=== PATIENT | male | born 1945 | race Caucasian/White ===

== ENCOUNTER 2019-11-29 15:16 | Inpatient (IN) | payer MEDICARE, SELFPAY ==
[2019-11-29] VITALS (11 sets, daily range): BP systolic 143–154; BP diastolic 91–104; PULSE 85–112; RESP 15–19; TEMP 36.6–37.2; O2SAT 90–97; BMI 29.1; BMI 26.6; BMI 26.7
--- NOTE | 2019-11-29 15:54 | VDLE_ITS ---
Reason For Study: Swelling RIGHT LEFT CFV is compressible, spontaneous, competent GSV is normal. and demonstrates pulsatile venous flow. CFV is compressible, spontaneous, competent, Procedure and demonstrates pulsatile venous flow. Exam performed in department. FV is compressible, spontaneous, competent A preliminary report was called and/or faxed and demonstrates pulsatile venous flow. to Ivan. POP V is compressible, spontaneous, competent and demonstrates pulsatile venous flow. T/P Trunk is compressible. PTV is compressible. LT PerV is compressible. Interpretation Summary Deep veins of the left lower extremity are patent and compressible segmentally. There is no evidence of left lower extremity deep vein thrombosis. Valvular competence appears intact within the proximal deep venous system on the left . The left great saphenous vein appears patent and compressible segmentally. Pulsatile flow is noted in the deep venous system, which may be indicative of elevated central venous pressure (i.e. congestive heart failure, tricuspid valve insufficiency, etc.). Clinical correlation is advised. Ordering Physician: Lola Love Referring Physician: Jluis Padilla Performed By: Flora Land RVT
[2019-11-29 16:26] LABS: Absolute Lymphocyte Count 1.77 X10^3/uL (0.83-4.51); Absolute Neutrophil Count 4.3 X10^3/uL (2.0-7.7); Basophil# 0.07 X10^3/uL; Basophil% 0.9 % (0-1); Eosinophil# 0.18 X10^3/uL; Eosinophils% 2.4 % (0-5); Hematocrit 51.7 % (40-54); Hemoglobin 17.2 g/dL (13.0-16.5); Lymphocyte # 1.77 X10^3/ul (4.0); Lymphocyte % 23.9 % (19-41); Mean Corp Hgb Conc 33.3 g/dL (32-36); Mean Corpuscular Hgb 34.1 pg (27.0-32.0); Mean Corpuscular Volume 102.4 fL (80-94); Mean Platelet Vol. 9.9 fl (6.2-12.0); Monocyte# 1.06 X10^3/uL; Monocyte% 14.3 % (0-10); NRBC Flagged by Analyzer 0 % (0-5); Neutrophil # 4.25 X10^3/uL (2.7-7.7); Neutrophil % 57.6 % (47-70); Platelet Count 129 K/mm3 (150-450); RBC Distribution Width CV 14.8 % (11.6-14.6); Red Blood Count 5.05 M/mm3 (4.6-6.2); White Blood Count 7.4 K/mm3 (4.4-11.0)
--- NOTE | 2019-11-29 16:26 | RAD_ITS ---
STUDY: X-RAY - LEFT TIBIA AND FIBULA REASON FOR EXAM: Male, 74 years old. FALL LAST WEEK, PAIN REDNESS AND EDEMA TECHNIQUE: 2 view(s) of the tibia and fibula were obtained. COMPARISON: None. FINDINGS: Normal visualized tibia. Normal visualized fibula. There is no demonstrated acute fracture. Localized 8.2 subcutaneous mass density of the mid lateral/anterior calf most consistent with hematoma. RAD/Tibia & Fibula 2 Views IMPRESSION: Normal x-ray examination of the tibia and fibula. Electronically Signed: Jorge Bob MD at 16:38 EDT , Service support ,
--- NOTE | 2019-11-29 16:42 | ED.VISSUMM ---
- ER Visit Summary Date of Service: 11/29/19 Chief Complaint: Left leg redness and swelling History of Present Illness: The patient is a 74 M presenting with left leg redness and swelling. On November 21 he fell approximately 5 feet from a deck. He scraped his leg at that time. Over the next couple days he began to develop increasing redness and swelling. He went to urgent care today and was advised to come to the ED. When he fell he did not hit his head or lose consciousness. He denies fever or other complaints. Physical Examination: Vitals are stable. Patient is afebrile. Alert no acute distress. HEENT exam is unremarkable. Neck is supple. Lungs are clear and equal bilaterally. Heart is regular rate and rhythm. Extremities left mid zavala abrasion. Diffuse erythema below knee. Normal pulses. Skin is warm and dry. No focal neurologic deficit. Remainder of exam is unremarkable. Emergency Department Course and Treatment: Left venous Doppler shows no evidence of DVT. Left tib-fib x-ray shows normal x-ray examination of the tibia and fibula. Patient was given morphine, Zofran. He was given Ancef IV. CBC shows platelets 129. Chemistries show potassium 3.0, BUN 4, creatinine 0.54. Will discuss with hospitalist for admission. Disposition: Admission Impression: Left lower extremity cellulitis This note was generated with [employer] dictation software. It may contain incorrect words, spelling, and punctuation that were not noted in review of the chart prior to signing ED Disposition - Plan for ED Patient: Referrals: Paulo Padilla MD [Primary Care Provider] -
--- NOTE | 2019-11-29 16:45 | NURSING ---
GREEN TOP NEEDS REDRAWN
[2019-11-29] MEDS: Ondansetron 4 MG/2 ML Vial IV (16:58)
[2019-11-29] MEDS: Morphine 4 MG/ML Syringe IV (16:59)
[2019-11-29] MEDS: Cefazolin 1 GM/50 ML BAG IV ×2 (17:15→21:36)
[2019-11-29 17:16] LABS: Anion Gap 8 (5-15); BUN 4 mg/dL (7-18); BUN/Creat Ratio 7.4 RATIO (10-20); Calcium,Total 8.1 mg/dL (8.5-10.1); Chloride 98 mmol/L (98-107); Creatinine, Serum 0.54 mg/dL (0.70-1.30); EST Glomerular Filtration Rate 158 mL/min (>60); Est Glom Filt Rate - Afr Amer 191 mL/min (>60); Glucose 85 mg/dL (74-106); Sodium Level 136 mmol/L (136-145)
--- NOTE | 2019-11-29 19:22 | PCM.HP.STD ---
Problem List (1) Cellulitis of left lower extremity Status: Acute (2) Alcohol abuse Status: Chronic (3) HTN (hypertension) Status: Chronic Qualifiers: Hypertension type: essential hypertension Qualified Code(s): I10 - Essential (primary) hypertension (4) Anxiety and depression Status: Chronic (5) Former tobacco use Status: Chronic (6) COPD (chronic obstructive pulmonary disease) Status: Suspected Qualifiers: COPD type: unspecified COPD Qualified Code(s): J44.9 - Chronic obstructive pulmonary disease, unspecified History of Present Illness Date of Admission: 11/29/19 Chief Complaint: Fall with LLE injury, redness, edema, pain. The patient is a 74 y/o M w/ PMHx: HTN, Hypothyroidism, Anxiety and Depression, Former Tobacco use with Suspected Chronic COPD, EtOH Abuse who presents to the [facility] ED on 11/29/19 with history of mechanical fall on 11/22/2019 with injury to left lower extremity and since then ongoing pain, dull throbbing and intermittent sharp rated 5-6 out of 10 in severity at its worse with increasing debility, erythema and edema to the extremity prompting eventual ED presentation for concern for infection. He notes that he normally drinks at least 8 to 912 ounce cans of beers daily with his last intake approximately half hour prior to ED presentation noting it half a can intake. Denies any prior DT history. Work-up in the ED included T 98.1, heart rate 112 initially, BP 146/94, respiratory rate 16, 94% on room air, CBC with WC 7.4, hemoglobin 17.2, platelet 129 without market shift, BMP with potassium 3.0, BUN/creatinine 4/0.54, blood culture x2 pending per ED, plain film of the left tibia and fibula with a localized 8 point 2 subcutaneous mass density of the mid lateral/anterior calf consistent with a hematoma. In the ED patient treated with Ancef, morphine and Zofran therapy. Past Medical History Past Medical History (Chronic Problems): Chronic Problems Alcohol abuse (Chronic) HTN (hypertension) (Chronic) Anxiety and depression (Chronic) Former tobacco use (Chronic) Allergies No Known Allergies Allergy (Verified 11/06/13 22:51) Home Medications: Ambulatory Orders Medication Instructions Recorded Fluoxetine HCl [Prozac] 20 mg PO DAILY 11/29/19 Folic Acid 0.4 mg PO DAILY@199911/29/19 Hydrochlorothiazide 12.5 mg PO DAILY 11/29/19 Lisinopril [Zestril] 20 mg PO DAILY 11/29/19 Thiamine HCl 100 mg PO DAILY 11/29/19 Surgical History: no surgical history Psychiatric History: Anxiety, Depression Lives: Alone Smoking Status: Former smoker - Patient quit approximately 30 years prior to current presentation with prior to this 1 to 1.5 pack/day cigarette 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 Tobacco Use: Non-smoker Alcohol: Heavy - Patient drinks 8 to 9 cans, 12 ounce, beer daily. Drugs: None - *Family History Maternal History Items: Hypertension Paternal History Items: Hypertension Review of Systems Constitutional: Reports: Malaise, Weakness, Fatigue. Denies: Anorexia, Chills, Fever, Weight Change HEENT: Denies: Head Aches, Sinus Congestion, Sinus Drainage Cardiovascular: Denies: Chest Pain, Palpitations Respiratory: Reports: Cough. Denies: Shortness of breath at rest, Sputum production Gastrointestinal: Denies: Abdominal Pain, Nausea, Vomiting Genitourinary: Denies: Dysuria Musculoskeletal: Reports: Leg Pain. Denies: Joint Pain, Joint Tenderness Skin: Reports: Skin Changes. Denies: Rash, Wounds Neurological: Denies: Numbness, Tingling, Focal weakness Psychiatric: Reports: Anxiety, Depression. Denies: Homicidal Ideations, Suicidal Ideations Hematologic/ Lymphatic: Reports: Easy Bruising, Easy Bleeding VTE Information - Inpt Only VTE Present on Admission: No VTE Mechan Device Prophylaxis: SCD's VTE Pharm Prophylaxis ordered?: No Reason prophylaxis not ordered:: Medical Contraindication - Hold given plain film findings and recent fall with possible hematoma. Patient Problems: Active and Suspected Problems Cellulitis of left lower extremity (Acute) COPD (chronic obstructive pulmonary disease) (Suspected) Subjective: Patient seated upright in ED bed, fatigued appearing, denies any acute plaints at this time aside from discomfort with the left lower extremity with movement and use. Objective: Physical Examination: General: awake, alert, oriented x 3 and cooperative, seated upright in the ED bed in no apparent distress, fatigued appearing. Skin: normal color, turgor, no icterus, cyanosis except noted left lower extremity status post fall with abrasion, no discharge, mildly edematous, 1+ pitting, erythema extending pedal to mid zavala circumferential, tender to palpation. HEENT: AT/NC, EOMI, PERRLA, moderately dry MM, no carotid bruits or JVD noted. Lungs: Diminished breath sounds, greater bilateral bases, moderate effort, soft occasional end expiratory wheezing, no obvious rales or rhonchi. Heart: Regular rate and rhythm; no gallop, rub audible. Abdomen: soft, overweight, NTTP, ND, normal BS, mild HM. Extremities: no cyanosis, clubbing, see skin is noted. Neurological: patient awake, alert, oriented x 3; cognitive function intact; pupils equally reactive to light and accomodation; cranial nerves II-XII grossly normal, moving all 4 extremities, no focal deficits, strength moderately globally Stephanie secondary to acute presentation. Psychiatric: affect appears fatigued otherwise normal, no acute evidence of depressive or anxiety feelings. - Physical Exam Vitals/I&O's: Vital Signs Temp Pulse Resp BP Pulse Ox 98.9 F 91 17 144/94 H 93 11/29/19 19:07 11/29/19 19:07 11/29/19 19:07 11/29/19 19:07 11/29/19 19:07 Oxygen Delivery Method Room Air Weight: 180 lb 5.763 oz Body Mass Index (BMI) 29.1 Intake and Output for Last 24 Hours 11/27/19 11/28/19 11/29/19 23:59 23:59 23:59 Intake Total 50 / 50 Balance 50 / 50 Laboratory Results 11/29/19 16:04: WBC 7.4, RBC 5.05, Hgb 17.2 H, Hct 51.7, MCV 102.4 H, MCH 34.1 H, MCHC 33.3, RDW Std Deviation 55.0 H, RDW Coeff of Eric 14.8 H, Plt Count 129 L, MPV 9.9, Immature Gran % (Auto) 0.900, Neut % (Auto) 57.6, Lymph % (Auto) 23.9, Drew % (Auto) 14.3 H, Eos % (Auto) 2.4, Baso % (Auto) 0.9, Absolute Neuts (auto) 4.3, Absolute Lymphs (auto) 1.77, Nucleated RBC % 0 11/29/19 16:04: Sodium Cancelled, Potassium Cancelled, Chloride Cancelled, Carbon Dioxide Cancelled, Anion Gap Cancelled, BUN Cancelled, Creatinine Cancelled, Estim Creat Clear Calc Cancelled, Est GFR (MDRD) Af Amer Cancelled, Est GFR (MDRD) Non-Af Cancelled, BUN/Creatinine Ratio Cancelled, Glucose Cancelled, Calcium Cancelled 11/29/19 16:50: Sodium 136, Potassium 3.0 L, Chloride 98, Carbon Dioxide 30.0, Anion Gap 8, BUN 4 L, Creatinine 0.54 L, Estim Creat Clear Calc 57.60, Est GFR (MDRD) Af Amer 191, Est GFR (MDRD) Non-Af 158, BUN/Creatinine Ratio 7.4 L, Glucose 85, Calcium 8.1 L Assessment/Plan All Active Problems Cellulitis of left lower extremity (Acute) The patient is a 74 y/o M w/ PMHx: HTN, Hypothyroidism, Anxiety and Depression, Former Tobacco use with Suspected Chronic COPD, EtOH Abuse who presents to the [facility] ED on 11/29/19 with history of mechanical fall on 11/22/2019 with injury to left lower extremity and since then ongoing pain, dull throbbing and intermittent sharp rated 5-6 out of 10 in severity at its worse with increasing debility, erythema and edema. 1. Left lower extremity injury status post mechanical fall with Acute cellulitis and hematoma: extremity Cellulitis: Will admit to [facility], maintain on IV rocephin, request wound RN consultation, if notable drainage onset will obtain Wound Cx and Wound MRSA PCR, plan repeat CBC in AM, continue affected extremity elevation above heart when seated and in bed, monitor erythema outline with VS checks. PRN oral/IV pain regimen. Fall precautions. 2. Hypokalemia: Admission K+ 3.0, magnesium level requested, supplementation given, repeat level in AM. 3. Anxiety and depression: We will continue patient home Prozac regimen. 4. Hypertension: Continue home regimen including lisinopril, hydrochlorothiazide with hold parameters as needed, PRN hydralazine. 5. Former tobacco use: Encourage continued tobacco cessation. 6. GERD: Maintain on famotidine. 7. EtOH Abuse: Patient notes routine consumption of 8-9, 12 ounce beers per day. Will maintain on CIWA protocol, MVI, thiamine and folic acid. Patient notes intention of continued EtOH usage. Museum and phosphorus levels requested. 8. DVT prophylaxis: SCD to unaffected extremity, hold chemoprophylaxis given hematoma is noted. 9. CODE status: Discussed CODE status at length including difference between FULL code, DNR-CCA and DNR-CC status. Following discussions about the differences in these status, requested Full Code. Advanced Care Planning Face to Face Time: 16 minutes. Inpatient E&M: 89782 Init Hosp L3 Procedures: 38369 Advncd Care Plan 30 Min
[2019-11-29] MEDS: 0.9% Normal Saline 1,000 ML 100 ML IV (20:29)
[2019-11-29 20:38] LABS: Magnesium 1.8 mg/dL (1.6-2.6); Phosphorus 2.3 mg/dL (2.5-4.9)
[2019-11-29] MEDS: 0.9% Saline Lock 10 ML Syringe IV (20:38)
[2019-11-29] MEDS: Famotidine 20 MG Tablet PO (21:36)
[2019-11-29] MEDS: oxyCODONE 5 MG Tablet PO (21:52)
[2019-11-29] MEDS: Ipratropium/Albuterol Sulfate 3 ML AMPUL.NEB INHALATION (22:41)
[2019-11-30] VITALS (11 sets, daily range): BP systolic 109–141; BP diastolic 59–98; PULSE 63–86; RESP 16–18; TEMP 36.4–36.8; O2SAT 85–97
--- NOTE | 2019-11-30 05:11 | ECHOD_ITS ---
Reason For Study: A. fib Procedure This was a 2D Doppler, Color Flow transthoracic echocardiogram. Exam performed portable in patient room. Left Ventricle Normal LV size. Moderate concentric left ventricular hypertrophy. The estimated ejection fraction is 45 %. Unable to assess diastolic dysfunction due to arrhythmia. There is mild global hypokinesis of the left ventricle. Right Ventricle Normal RV size. Normal systolic function. Atria The left atrium is moderately enlarged. The right atrium is moderately enlarged. Mitral Valve Bileaflet diffuse mitral valve thickening. Mild (1+) eccentric mitral valve insufficiency. Tricuspid Valve Normal tricuspid valve. Mild (1+) tricuspid valve insufficiency. Pulmonary artery systolic pressure is 25 mmHg. Aortic Valve Trisinus/trileaflet aortic valve. Moderate focal aortic valve thickening. Peak aortic valve gradient 14 mmHg. Mean aortic valve gradient 7 mmHg. Mild aortic stenosis. Pulmonic Valve Normal pulmonic valve. Mild (1+) pulmonic valve insufficiency. Great Vessels Normal aortic root. The pulmonary artery is normal size. Inferior vena cava collapse with sniff. Pericardium/Pleural No pericardial effusion. MMode/2D Measurements & Calculations LVIDd: 4.4 cm IVSd: 1.5 cm LVOT diam: 2.3 cm LVIDs: 3.3 cm LVPWd: 1.3 cm LVOT area: 4.1 cm2 RVDd: 4.3 cm FS: 25.6 % Ao root diam: 4.3 cm LAV(MOD-bp): 120.1 ml LA A4 area: 27.8 cm2 LAV(MOD-bp) Indexed: 62.2 ml/m2 LAV(MOD-sp2): 129.3 ml LAV(MOD-sp4): 96.8 ml LA dimension(2D): 4.7 cm RA A4 area: 26.4 cm2 Doppler Measurements & Calculations MV E max lupe: 96.3 cm/sec Ao V2 max: 192.0 cm/sec LV V1 max: 90.6 cm/sec Ao max P.7 mmHg LV V1 max P.3 mmHg Ao V2 mean: 130.7 cm/sec LV V1 mean P.7 mmHg Ao mean P.6 mmHg LV V1 mean: 61.5 cm/sec Ao V2 VTI: 38.2 cm LV V1 VTI: 17.6 cm MARYBETH(I,D): 1.9 cm2 MARYBETH(V,D): 1.9 cm2 MR max lupe: 144.1 cm/sec SV(LVOT): 72.5 ml PA V2 max: 69.7 cm/sec MR max P.3 mmHg MR mean lupe: 94.1 cm/sec MR mean P.1 mmHg MR VTI: 27.8 cm TR max lupe: 227.7 cm/sec TR max P.9 mmHg Interpretation Summary Normal LV size. Moderate concentric left ventricular hypertrophy. The estimated ejection fraction is 45 %. The left atrium is moderately enlarged. The right atrium is moderately enlarged. Unable to assess diastolic dysfunction due to arrhythmia. Moderate focal aortic valve thickening. Mild aortic stenosis. Ordering Physician: Karely Frias Referring Physician: Jluis Padilla Performed By: Tiffanie Locke RDCS
[2019-11-30] MEDS: Cefazolin 1 GM/50 ML BAG IV ×3 (05:19→21:30)
[2019-11-30] MEDS: Metoprolol Tartrate 25 MG Tablet PO ×2 (05:19→21:30)
[2019-11-30 05:35] LABS: Basophil# 0.05 X10^3/uL; Basophil% 0.7 % (0-1); Eosinophil# 0.18 X10^3/uL; Eosinophils% 2.7 % (0-5); Hematocrit 51.8 % (40-54); Hemoglobin 17.1 g/dL (13.0-16.5); Lymphocyte % 22.3 % (19-41); Mean Corpuscular Hgb 34.1 pg (27.0-32.0); Mean Corpuscular Volume 103.4 fL (80-94); Mean Platelet Vol. 9.6 fl (6.2-12.0); Monocyte# 0.92 X10^3/uL; Monocyte% 13.7 % (0-10); NRBC Flagged by Analyzer 0 % (0-5); Neutrophil # 4.03 X10^3/uL (2.7-7.7); Neutrophil % 59.9 % (47-70); Platelet Count 108 K/mm3 (150-450); RBC Distribution Width CV 14.8 % (11.6-14.6); RBC Distribution Width SD 56.9 fl (35.1-43.9); Red Blood Count 5.01 M/mm3 (4.6-6.2); White Blood Count 6.7 K/mm3 (4.4-11.0)
--- NOTE | 2019-11-30 05:54 | NURSING ---
Pt transferred to PCU for new Afib. Son notified by Mayra CORONADO. This RN gave report to Debi CORONADO.
--- NOTE | 2019-11-30 05:55 | EKG12_ITS ---
Test Reason : AM EKG Blood Pressure : / mmHG Vent. Rate : 086 BPM Atrial Rate : 082 BPM P-R Int : 000 ms QRS Dur : 178 ms QT Int : 464 ms P-R-T Axes : 000 081 028 degrees QTc Int : 555 ms Atrial fibrillation Right bundle branch block Abnormal ECG When compared with ECG of 21-JAN-2017 15:20, Atrial fibrillation has replaced Sinus rhythm Right bundle branch block is now Present Confirmed by WILLIAM CARLSON, MILI ([id number]), graphic editor GAVINO BAILEY ([id number]) on 12/03/2019 10:19:46 AM Referred By: WILFRED Confirmed By:MILI THOMAS MD
--- NOTE | 2019-11-30 05:55 | RAD_ITS ---
HISTORY: hypoxia ADDITIONAL HISTORY: None provided. TECHNIQUE: Frontal chest radiograph. Number of images including paperwork: 1 COMPARISON: 01/21/2017 FINDINGS: LUNGS AND PLEURA: No dense consolidation. Mild interstitial prominence appears similar to previous. CARDIAC SILHOUETTE: Stable. MEDIASTINUM AND HUNTER: Unchanged aortic calcification and tortuosity. UPPER ABDOMEN: Unremarkable. SKELETON AND SOFT TISSUES: No acute findings. Degenerative changes. OTHER DEVICES AND HARDWARE: None. RAD/Chest 1 View (Portable) IMPRESSION: No acute cardiopulmonary abnormality. at 0750 Reported and signed by: Becca Moreno MD Electronically Signed: Becca Moreno MD at 7:50 EDT Tel , Service support ,
[2019-11-30 06:00] LABS: Anion Gap 4 (5-15); BUN 6 mg/dL (7-18); BUN/Creat Ratio 9.3 RATIO (10-20); Calcium,Total 8.3 mg/dL (8.5-10.1); Chloride 99 mmol/L (98-107); Creatinine, Serum 0.64 mg/dL (0.70-1.30); EST Glomerular Filtration Rate 128 mL/min (>60); Est Glom Filt Rate - Afr Amer 155 mL/min (>60); Estimated Creatinine Clearance 61.75 ml/min; Glucose 95 mg/dL (74-106); Potassium 3.6 mmol/L (3.5-5.1); Sodium Level 135 mmol/L (136-145); T4 Free Direct 1.09 ng/dL (0.76-1.46); Thyroid Stim Hormone (TSH) 3.16 uIU/mL (0.358-3.74)
[2019-11-30] MEDS: oxyCODONE 5 MG Tablet PO ×2 (06:16→21:30)
[2019-11-30] MEDS: Ipratropium/Albuterol Sulfate 3 ML AMPUL.NEB INHALATION ×2 (06:51→13:18)
[2019-11-30] MEDS: Folic Acid 1 MG Tablet PO (09:10)
[2019-11-30] MEDS: Aspirin 81 MG TAB.CHEW PO (09:10)
[2019-11-30] MEDS: Multivitamins,Ther W-Minerals Tablet 1 TABLET PO (09:10)
[2019-11-30] MEDS: Famotidine 20 MG Tablet PO ×2 (09:11→21:31)
[2019-11-30] MEDS: FLUoxetine 20 MG Capsule PO (09:11)
[2019-11-30] MEDS: hydroCHLOROthiazide 12.5mg 12.5 MG PO (09:11)
[2019-11-30] MEDS: Lisinopril 20 MG Tablet PO (09:11)
[2019-11-30] MEDS: Thiamine Hydrochloride 100 MG Tablet PO (09:11)
--- NOTE | 2019-11-30 12:39 | PN_ITS ---
<Nani Luciano - Last Filed: 11/30/19 12:54> Patient Problems: Active and Suspected Problems Cellulitis of left lower extremity (Acute) COPD (chronic obstructive pulmonary disease) (Suspected) Subjective: Patient seen and examined. Complains of left lower extremity pain. Denies fever, chills. Denies chest pain, shortness of breath. - Physical Exam Vitals/I&O's: Vital Signs Temp Pulse Resp BP Pulse Ox 97.8 F 63 18 113/59 L 95 11/30/19 12:00 11/30/19 12:00 11/30/19 12:00 11/30/19 12:00 11/30/19 12:00 Oxygen Flow Rate (L/min) 2 Oxygen Delivery Method Room Air Weight: 175 lb 7.807 oz Body Mass Index (BMI) 26.6 Intake and Output for Last 24 Hours 11/28/19 11/29/19 11/30/19 23:59 23:59 23:59 Intake Total 213.33 / 413.33 1496.67 / 1496.67 Output Total 450 / 450 Balance 213.33 / 413.33 1046.67 / 1046.67 General: Alert, Oriented x3, Cooperative HEENT: Atraumatic, PERRLA, EOMI, Normocephalic Neck: Supple, No JVD, Negative Carotid Bruits Lungs: Clear to auscultation, Diminished Cardiovascular: - - Atrial fibrillation, rate controlled Abdomen: Bowel Sounds Present, Soft, Non Tender, Non-Distended Extremities: No clubbing, No cyanosis, No edema, Capillary Refill Less than 3 Seconds Skin: No rashes, No breakdown, - - Left lower extremity redness with hematoma Musculoskeletal: No Tenderness to Palpation of Joints or Extremities Neurological: Cranial nerves II-XII grossly intact, Neuro grossly intact Psych/Mental Status: Normal Affect, Appropriate Laboratory Results 11/29/19 16:04: WBC 7.4, RBC 5.05, Hgb 17.2 H, Hct 51.7, MCV 102.4 H, MCH 34.1 H , MCHC 33.3, RDW Std Deviation 55.0 H, RDW Coeff of Eric 14.8 H, Plt Count 129 L, MPV 9.9, Immature Gran % (Auto) 0.900, Neut % (Auto) 57.6, Lymph % (Auto) 23.9, Dade % (Auto) 14.3 H, Eos % (Auto) 2.4, Baso % (Auto) 0.9, Absolute Neuts (auto) 4.3, Absolute Lymphs (auto) 1.77, Nucleated RBC % 0 11/29/19 16:04: Sodium Cancelled, Potassium Cancelled, Chloride Cancelled, Carbon Dioxide Cancelled, Anion Gap Cancelled, BUN Cancelled, Creatinine Cancelled, Estim Creat Clear Calc Cancelled, Est GFR (MDRD) Af Amer Cancelled, Est GFR (MDRD) Non-Af Cancelled, BUN/Creatinine Ratio Cancelled, Glucose Cancelled, Calcium Cancelled 11/29/19 16:50: Sodium 136, Potassium 3.0 L, Chloride 98, Carbon Dioxide 30.0, Anion Gap 8, BUN 4 L, Creatinine 0.54 L, Estim Creat Clear Calc 57.60, Est GFR (MDRD) Af Amer 191, Est GFR (MDRD) Non-Af 158, BUN/Creatinine Ratio 7.4 L, Glucose 85, Calcium 8.1 L 11/29/19 16:50: Phosphorus 2.3 L, Magnesium 1.8 11/29/19 21:40: Ethyl Alcohol 6.0 11/30/19 05:27: WBC 6.7, RBC 5.01, Hgb 17.1 H, Hct 51.8, MCV 103.4 H, MCH 34.1 H , MCHC 33.0, RDW Std Deviation 56.9 H, RDW Coeff of Eric 14.8 H, Plt Count 108 L, MPV 9.6, Immature Gran % (Auto) 0.700, Neut % (Auto) 59.9, Lymph % (Auto) 22.3, Dade % (Auto) 13.7 H, Eos % (Auto) 2.7, Baso % (Auto) 0.7, Absolute Neuts (auto) 4.0, Absolute Lymphs (auto) 1.50, Nucleated RBC % 0 11/30/19 05:27: Sodium 135 L, Potassium 3.6, Chloride 99, Carbon Dioxide 32.0, Anion Gap 4 L, BUN 6 L, Creatinine 0.64 L, Estim Creat Clear Calc 61.75, Est GFR (MDRD) Af Amer 155, Est GFR (MDRD) Non-Af 128, BUN/Creatinine Ratio 9.3 L, Glucose 95, Calcium 8.3 L, Troponin I 0.027, TSH 3.16, Free T4 1.09 11/30/19 08:20: Troponin I 0.023 11/30/19 11:22: Troponin I 0.016 Current Medications Acetaminophen (Tylenol) 650 mg PO Q6H PRN PRN PRN Reason: Pain Score 1-10/Temp > 100.7 F Al Hydroxide/Mg Hydroxide (Mylanta Ii) 30 ml PO Q6H PRN PRN PRN Reason: Gastric Burning Albuterol Sulfate (Ventolin Aerosols) 2.5 mg INHALATION Q2H PRN PRN PRN Reason: Shortness of Breath/Wheezing Albuterol/Ipratropium (Duoneb) 3 ml INHALATION Q6HWA.RT [facility] Last Admin: 11/30/19 06:51 Dose: 3 ml Documented by: Aspirin (Aspirin, Baby) 81 mg PO DAILY@0800 [facility] Last Admin: 11/30/19 09:10 Dose: 81 mg Documented by: Dextrose (D50w Syringe) 0 gm IV X1 PRN; Protocol PRN Reason: Hypoglycemia Famotidine (Pepcid) 20 mg PO BID [facility] Last Admin: 11/30/19 09:11 Dose: 20 mg Documented by: Fluoxetine HCl (Prozac) 20 mg PO DAILY [facility] Last Admin: 11/30/19 09:11 Dose: 20 mg Documented by: Folic Acid (Folic Acid) 1 mg PO DAILY@0800 [facility] Last Admin: 11/30/19 09:10 Dose: 1 mg Documented by: Glucagon () 1 mg IM .X1 PRN PRN Reason: Hypoglycemia Guaifenesin (Robitussin) 20 ml PO Q4H PRN PRN PRN Reason: COUGH Hydralazine HCl (Apresoline Iv) 10 mg IV Q4H PRN PRN PRN Reason: SBP > 160 Hydrochlorothiazide () 12.5 mg PO DAILY [facility] Last Admin: 11/30/19 09:11 Dose: 12.5 mg Documented by: Cefazolin Sodium () 1 gm in 50 mls @ 100 mls/hr IV Q8 [facility] Last Infusion: 11/30/19 05:49 Dose: Infused Documented by: Sodium Chloride () 250 mls @ 15 mls/hr IV .[id number] PRN PRN Reason: Saline Flush Sodium Chloride () 250 mls @ 15 mls/hr IV .[id number] PRN PRN Reason: Additional IVPB Infusion Lisinopril (Zestril) 20 mg PO DAILY [facility] Last Admin: 11/30/19 09:11 Dose: 20 mg Documented by: Lorazepam (Ativan) 2 mg PO Q2H PRN PRN; Protocol PRN Reason: CIWA score > 8 but <15 Lorazepam (Ativan) 2 mg PO UD PRN; Protocol PRN Reason: CIWA score >/=15. Lorazepam (Ativan) 2 mg IV Q2H PRN PRN; Protocol PRN Reason: CIWA score > 8 but <15 Lorazepam (Ativan) 2 mg IV UD PRN; Protocol PRN Reason: CIWA score >/=15. Magnesium Hydroxide (Milk Of Magnesia) 30 ml PO DAILY PRN PRN PRN Reason: Constipation Melatonin (Melatonin) 3 mg PO QHS PRN PRN PRN Reason: INSOMNIA Metoprolol Tartrate (Lopressor (Beta Chacorta)) 25 mg PO BID [facility] Last Admin: 11/30/19 05:19 Dose: 25 mg Documented by: Morphine Sulfate () 4 mg IV Q3H PRN PRN PRN Reason: Pain Score 6-10/10 Multivitamins/Minerals (Multivitamin With Minerals (Bkc)) [facility] Last Admin: 11/30/19 09:10 Dose: 1 tablet Documented by: Nitroglycerin (Nitrostat) 0.4 mg SUBLINGUAL Q5M PRN PRN Reason: CARDIAC/CHEST PAIN Ondansetron HCl (Zofran) 4 mg IV Q8H PRN PRN PRN Reason: NAUSEA/VOMITING Oxycodone HCl (Oxyir) 5 mg PO Q4H PRN PRN PRN Reason: Pain Score 4-5/10 Last Admin: 11/30/19 06:16 Dose: 5 mg Documented by: Prochlorperazine Edisylate (Compazine Iv) 5 mg IV Q4H PRN PRN PRN Reason: Breakthrough nausea/vomiting Psyllium Hydrophilic Mucilloid (Metamucil) 1 packet PO DAILY PRN PRN PRN Reason: Constipation Senna/Docusate Sodium (Senokot-S, Bonnie-Colace) 2 tablet PO BID PRN PRN PRN Reason: Constipation Sodium Chloride () 10 - 40 ml IV UD PRN PRN Reason: SALINE FLUSH Last Admin: 11/29/19 20:38 Dose: 10 ml Documented by: Thiamine HCl (Vitamin B1) 100 mg PO DAILY [facility] Last Admin: 11/30/19 09:11 Dose: 100 mg Documented by: Throat Lozenges (Cepacol Sore Throat Lozenge) 1 lozenge MUCOUS MEM Q2H PRN PRN PRN Reason: SORE THROAT Medical Necessity - Tobacco Use Smoking Status: Former smoker Tobacco Use: Non-smoker Assessment/Plan All Active Problems Cellulitis of left lower extremity (Acute) 1. Left lower extremity cellulitis secondary to prior mechanical fall with injury/abrasion, associated lateral left lower extremity hematoma-duplex ultrasound negative for DVT. Continue IV cefazolin. Elevate left lower extremity. PRN pain regimen. 2. New onset paroxysmal atrial fibrillation-troponin negative. Rate controlled. Echocardiogram pending. Given chronic alcohol abuse and fall history, do not feel patient is appropriate for anticoagulation. Continue aspirin, metoprolol. CHADSVAC score 3. Ideally, patient should be considered for anticoagulation however patient has no interest in alcohol cessation and fall history as previously noted. 3. Chronic alcohol abuse- [facility] protocol, continue multivitamin, thiamine and folic acid. Patient has no interest in alcohol cessation. 4. Hypertension-stable, continue lisinopril, hydrochlorothiazide. 5. Former tobacco use-encouraged continued cessation. 6. GERD-continue famotidine. 7. Anxiety, depression-continue Prozac regimen. DVT prophylaxis-Lovenox subcu This patient was seen by JOSE Jacques under the supervision of Dr. Landaverde. <Cate Landaverde - Last Filed: 11/30/19 13:52> - Physical Exam Vitals/I&O's: Vital Signs Temp Pulse Resp BP Pulse Ox 97.8 F 63 18 113/59 L 95 11/30/19 12:00 11/30/19 12:00 11/30/19 12:00 11/30/19 12:00 11/30/19 12:00 Oxygen Flow Rate (L/min) 2 Oxygen Delivery Method Room Air Weight: 175 lb 7.807 oz Body Mass Index (BMI) 26.6 Intake and Output for Last 24 Hours 0611/29/19 11/30/19 23:59 23:59 23:59 Intake Total 213.33 / 413.33 1753.67 / 1753.67 Output Total 450 / 450 Balance 213.33 / 413.33 1303.67 / 1303.67 Laboratory Results 11/29/19 16:04: WBC 7.4, RBC 5.05, Hgb 17.2 H, Hct 51.7, MCV 102.4 H, MCH 34.1 H , MCHC 33.3, RDW Std Deviation 55.0 H, RDW Coeff of Eric 14.8 H, Plt Count 129 L, MPV 9.9, Immature Gran % (Auto) 0.900, Neut % (Auto) 57.6, Lymph % (Auto) 23.9, Dade % (Auto) 14.3 H, Eos % (Auto) 2.4, Baso % (Auto) 0.9, Absolute Neuts (auto) 4.3, Absolute Lymphs (auto) 1.77, Nucleated RBC % 0 11/29/19 16:04: Sodium Cancelled, Potassium Cancelled, Chloride Cancelled, Carbon Dioxide Cancelled, Anion Gap Cancelled, BUN Cancelled, Creatinine Cancelled, Estim Creat Clear Calc Cancelled, Est GFR (MDRD) Af Amer Cancelled, Est GFR (MDRD) Non-Af Cancelled, BUN/Creatinine Ratio Cancelled, Glucose Cancelled, Calcium Cancelled 11/29/19 16:50: Sodium 136, Potassium 3.0 L, Chloride 98, Carbon Dioxide 30.0, Anion Gap 8, BUN 4 L, Creatinine 0.54 L, Estim Creat Clear Calc 57.60, Est GFR (MDRD) Af Amer 191, Est GFR (MDRD) Non-Af 158, BUN/Creatinine Ratio 7.4 L, Glucose 85, Calcium 8.1 L 11/29/19 16:50: Phosphorus 2.3 L, Magnesium 1.8 11/29/19 21:40: Ethyl Alcohol 6.0 11/30/19 05:27: WBC 6.7, RBC 5.01, Hgb 17.1 H, Hct 51.8, MCV 103.4 H, MCH 34.1 H , MCHC 33.0, RDW Std Deviation 56.9 H, RDW Coeff of Eric 14.8 H, Plt Count 108 L, MPV 9.6, Immature Gran % (Auto) 0.700, Neut % (Auto) 59.9, Lymph % (Auto) 22.3, Dade % (Auto) 13.7 H, Eos % (Auto) 2.7, Baso % (Auto) 0.7, Absolute Neuts (auto) 4.0, Absolute Lymphs (auto) 1.50, Nucleated RBC % 0 11/30/19 05:27: Sodium 135 L, Potassium 3.6, Chloride 99, Carbon Dioxide 32.0, Anion Gap 4 L, BUN 6 L, Creatinine 0.64 L, Estim Creat Clear Calc 61.75, Est GFR (MDRD) Af Amer 155, Est GFR (MDRD) Non-Af 128, BUN/Creatinine Ratio 9.3 L, Glucose 95, Calcium 8.3 L, Troponin I 0.027, TSH 3.16, Free T4 1.09 11/30/19 08:20: Troponin I 0.023 11/30/19 11:22: Troponin I 0.016 Current Medications Acetaminophen (Tylenol) 650 mg PO Q6H PRN PRN PRN Reason: Pain Score 1-10/Temp > 100.7 F Al Hydroxide/Mg Hydroxide (Mylanta Ii) 30 ml PO Q6H PRN PRN PRN Reason: Gastric Burning Albuterol Sulfate (Ventolin Aerosols) 2.5 mg INHALATION Q2H PRN PRN PRN Reason: Shortness of Breath/Wheezing Albuterol/Ipratropium (Duoneb) 3 ml INHALATION Q6HWA.RT [facility] Last Admin: 11/30/19 13:18 Dose: 3 ml Documented by: Aspirin (Aspirin, Baby) 81 mg PO DAILY@0800 [facility] Last Admin: 11/30/19 09:10 Dose: 81 mg Documented by: Dextrose (D50w Syringe) 0 gm IV X1 PRN; Protocol PRN Reason: Hypoglycemia Enoxaparin Sodium (Lovenox) 40 mg SC DAILY@0600 [facility] Famotidine (Pepcid) 20 mg PO BID [facility] Last Admin: 11/30/19 09:11 Dose: 20 mg Documented by: Fluoxetine HCl (Prozac) 20 mg PO DAILY [facility] Last Admin: 11/30/19 09:11 Dose: 20 mg Documented by: Folic Acid (Folic Acid) 1 mg PO DAILY@0800 [facility] Last Admin: 11/30/19 09:10 Dose: 1 mg Documented by: Glucagon () 1 mg IM .X1 PRN PRN Reason: Hypoglycemia Guaifenesin (Robitussin) 20 ml PO Q4H PRN PRN PRN Reason: COUGH Hydralazine HCl (Apresoline Iv) 10 mg IV Q4H PRN PRN PRN Reason: SBP > 160 Hydrochlorothiazide () 12.5 mg PO DAILY [facility] Last Admin: 11/30/19 09:11 Dose: 12.5 mg Documented by: Cefazolin Sodium () 1 gm in 50 mls @ 100 mls/hr IV Q8 [facility] Last Infusion: 11/30/19 05:49 Dose: Infused Documented by: Sodium Chloride () 250 mls @ 15 mls/hr IV .[id number] PRN PRN Reason: Saline Flush Sodium Chloride () 250 mls @ 15 mls/hr IV .[id number] PRN PRN Reason: Additional IVPB Infusion Lisinopril (Zestril) 20 mg PO DAILY [facility] Last Admin: 11/30/19 09:11 Dose: 20 mg Documented by: Lorazepam (Ativan) 2 mg PO Q2H PRN PRN; Protocol PRN Reason: CIWA score > 8 but <15 Lorazepam (Ativan) 2 mg PO UD PRN; Protocol PRN Reason: CIWA score >/=15. Lorazepam (Ativan) 2 mg IV Q2H PRN PRN; Protocol PRN Reason: CIWA score > 8 but <15 Lorazepam (Ativan) 2 mg IV UD PRN; Protocol PRN Reason: CIWA score >/=15. Magnesium Hydroxide (Milk Of Magnesia) 30 ml PO DAILY PRN PRN PRN Reason: Constipation Melatonin (Melatonin) 3 mg PO QHS PRN PRN PRN Reason: INSOMNIA Metoprolol Tartrate (Lopressor (Beta Chacorta)) 25 mg PO BID [facility] Last Admin: 11/30/19 05:19 Dose: 25 mg Documented by: Morphine Sulfate () 4 mg IV Q3H PRN PRN PRN Reason: Pain Score 6-10/10 Multivitamins/Minerals (Multivitamin With Minerals (Bkc)) 1 tablet PO DAILYCM [facility] Last Admin: 11/30/19 09:10 Dose: 1 tablet Documented by: Nitroglycerin (Nitrostat) 0.4 mg SUBLINGUAL Q5M PRN PRN Reason: CARDIAC/CHEST PAIN Ondansetron HCl (Zofran) 4 mg IV Q8H PRN PRN PRN Reason: NAUSEA/VOMITING Oxycodone HCl (Oxyir) 5 mg PO Q4H PRN PRN PRN Reason: Pain Score 4-5/10 Last Admin: 11/30/19 06:16 Dose: 5 mg Documented by: Prochlorperazine Edisylate (Compazine Iv) 5 mg IV Q4H PRN PRN PRN Reason: Breakthrough nausea/vomiting Psyllium Hydrophilic Mucilloid (Metamucil) 1 packet PO DAILY PRN PRN PRN Reason: Constipation Senna/Docusate Sodium (Senokot-S, Bonnie-Colace) 2 tablet PO BID PRN PRN PRN Reason: Constipation Sodium Chloride () 10 - 40 ml IV UD PRN PRN Reason: SALINE FLUSH Last Admin: 11/29/19 20:38 Dose: 10 ml Documented by: Thiamine HCl (Vitamin B1) 100 mg PO DAILY [facility] Last Admin: 11/30/19 09:11 Dose: 100 mg Documented by: Throat Lozenges (Cepacol Sore Throat Lozenge) 1 lozenge MUCOUS MEM Q2H PRN PRN PRN Reason: SORE THROAT Assessment/Plan Patient seen by Nani Luciano NP-Yuri under my supervision Patient seen and examined. He was admitted for left lower extremity pain and swelling after a fall. He is been managed for cellulitis of the left lower extremity. Patient has no complaints this morning. He denies having any significant pain in the area of the left lower extremity and denies fever or chills shortness of breath, nausea or vomiting. Review of symptoms otherwise negative. He has remained hemodynamically stable. Of note, patient also went into A. fib yesterday. He has no history of A. fib. o/e: Vital Signs Temp Pulse Resp BP Pulse Ox 97.8 F 63 18 113/59 L 95 11/30/19 12:00 11/30/19 12:00 11/30/19 12:00 11/30/19 12:00 11/30/19 12:00 General: Alert, Oriented x3, Cooperative HEENT: Atraumatic, PERRLA, EOMI, Normocephalic Neck: Supple, No JVD, Negative Carotid Bruits Lungs: Clear to auscultation, Diminished Cardiovascular: - - Atrial fibrillation, rate controlled Abdomen: Bowel Sounds Present, Soft, Non Tender, Non-Distended Extremities: No clubbing, No cyanosis, No edema, Capillary Refill Less than 3 Seconds Skin: No rashes, No breakdown, - - Left lower extremity redness with hematoma Musculoskeletal: No Tenderness to Palpation of Joints or Extremities Neurological: Cranial nerves II-XII grossly intact, Neuro grossly intact Psych/Mental Status: Normal Affect, Appropriate Duplex of the left lower extremity was negative for any DVT and shows a hematoma of the left lower extremity. 3 of the left tibia and fibula is negative for any pain. There is evidence of an 8.2 cm subcutaneous hematoma. We will continue with IV cefazolin for today. Continue metoprolol. 2D echo done showed EF of 45% and unable to assess diastolic dysfunction due to arrhythmia with mild global hypokinesis of the left ventricle. Left atrium moderately enlarged and right atrium moderately enlarged. Pulmonary artery systolic pressure is 25 mmHg. Mild aortic stenosis. Patient is a chronic alcoholic and tells me he has been self-medicating with alcohol since he came back from the [place]. He told me [place] that there is no chance that he will ever quit. In light of this and his recent fall, I am leery about putting patient on anti-coagulation for A. fib due to his increased risk of falls. Patient currently on aspirin. Will continue. Fall precautions. For possible discharge tomorrow. Rest as per JOSE Jacques's notes which I have reviewed and endorsed. Inpatient E&M: [id number] Subs Hosp L2
--- NOTE | 2019-11-30 12:40 | CASEMGMT ---
RN [employer] CM to room to meet with patient for initial transition planning/care coordination assessment. IVONNE ESPOSITO introduced self and role at [facility]. Pt voices understanding and consents to assessment at this time. Pt resting in bed in no distress at this time. Pt is A/O at this time and answers all questions appropriately. Care providers, pharmacy, and demographics verified/updated at this time. PCP: Dr Padilla. Specialists: None Preferred Pharmacy: [facility] [place] Insurance: [facility] A& B. VA benefits. State has not been to the [facility] clinic in years Prescription Benefit: Pt states he is not sure if he has prescription benefits other than through the [facility]. Call placed to [facility]. Per pharmacy, they state there are not prescription benefits found and that they have been using the Discount Card Only. Pt made aware. Pt advised, if in the future, [id number] cost becomes too high for prescriptions, to contact the [facility] so they could see him there and provide prescriptions for him. Pt voices understanding. Living Will/HPOA: Does not have either and interested in talking with SW. Pt given Director [employer] card and made aware, if SW is unable to meet with him this weekend/prior to discharge, that he can make an appt and come in as an out-pt to have paperwork completed. Pt voices understanding. Aliza GONZALES, made aware. LNOK: 2 sons Living Arrangements: Lives alone in one-story home w/2-5 steps to enter. Pt states he is independent @ home w/ADL's but that it is difficult to get out to get groceries d/t LLE injury. Pt states he is low on groceries and is interested in Meals on Wheels. Pt provided with information. He also states his son could help with getting him groceries as well, if needed. Transportation: Pt states drives self and states no transportation concerns at this time. Son, Mauricio, will take him home @ discharge. DME: Denies using any DME and denies needs. Discussed use of walker and if this would help him w/ambulating. Pt states he has been walking without any device and is not interested in/does not want a walker. HHC/SNF: No history of either. Pt states he does not want HHC or OP therapy. He was made aware, if in the future, he would like either, to discuss this with his PCP. Pt voices understanding. Pt wishes to return home and states has no concerns with going home at time of discharge. Pt w/current ETOH abuse. Pt is not interested in any resources to stop drinking. CM to follow for any discharge planning/needs. Pt voices no concerns/needs at this time. Advised pt to ask for CM if any further questions/concerns/needs arise. Voices understanding. PLAN: Home. PT/OT evals pending. Gissell MCQUEENN RN CM
--- NOTE | 2019-11-30 15:19 | CT_ITS ---
Exam: CT of the left leg and ankle. HISTORY: Cellulitis. Fall. COMPARISON: Radiographs 11/29/2019 which suggested trauma. FINDINGS: This exam confirms a subcutaneous elongated well-defined soft tissue density most consistent with subcutaneous hematoma, superficial to the muscle compartments, along the lateral mid calf. This probable hematoma measures approximately 7.0 x 2.4 x 7.5 cm. No focal fluid collections or evidence for abscess. Mild diffuse circumferential subcutaneous edema. No additional findings relative to the plain films. Normal skeletal structures and joints. Calcified plaque of the arteries. CT/Extremity Lower without Contra IMPRESSION: As indicated on the radiograph from yesterday, probable 7.5 cm subcutaneous hematoma along the lateral aspect of the midcalf. Electronically Signed: Jorge Bob MD at 16:44 EDT , Service support ,
[2019-12-01] VITALS (15 sets, daily range): BP systolic 110–119; BP diastolic 65–84; PULSE 58–97; RESP 16–20; TEMP 36.6–36.8; O2SAT 92–95
[2019-12-01] MEDS: Cefazolin 1 GM/50 ML BAG IV ×3 (05:55→21:49)
[2019-12-01 06:32] LABS: Hematocrit 49.5 % (40-54); Hemoglobin 16.1 g/dL (13.0-16.5); Mean Corp Hgb Conc 32.5 g/dL (32-36); Mean Corpuscular Volume 104.4 fL (80-94); Mean Platelet Vol. 10.2 fl (6.2-12.0); Platelet Count 112 K/mm3 (150-450); RBC Distribution Width CV 14.6 % (11.6-14.6); RBC Distribution Width SD 56.8 fl (35.1-43.9); Red Blood Count 4.74 M/mm3 (4.6-6.2)
[2019-12-01 06:57] LABS: Anion Gap 5 (5-15); BUN 8 mg/dL (7-18); BUN/Creat Ratio 11.5 RATIO (10-20); Calcium,Total 8.2 mg/dL (8.5-10.1); Chloride 99 mmol/L (98-107); EST Glomerular Filtration Rate 118 mL/min (>60); Est Glom Filt Rate - Afr Amer 142 mL/min (>60); Estimated Creatinine Clearance 61.75 ml/min; Glucose 96 mg/dL (74-106); Potassium 3.5 mmol/L (3.5-5.1); Sodium Level 135 mmol/L (136-145)
[2019-12-01] MEDS: Ipratropium/Albuterol Sulfate 3 ML AMPUL.NEB INHALATION ×3 (07:15→20:23)
--- NOTE | 2019-12-01 08:09 | CON.PCM_ITS ---
Problem List (1) Cellulitis of left lower extremity Status: Acute Reason for Consult Date of Consultation: 12/01/19 History of Present Illness: The patient is a 74 year old M who sustained a fall approximately 1 week ago. The patient reports that his pain is been eating worse in his bread down to the ankle. Patient notes that his pain is worse in the ankle and around the hematoma. Past Medical History Past Medical History (Chronic Problems): Chronic Problems Alcohol abuse (Chronic) HTN (hypertension) (Chronic) Anxiety and depression (Chronic) Former tobacco use (Chronic) Allergies No Known Allergies Allergy (Verified 11/06/13 22:51) Home Medications: Ambulatory Orders Medication Instructions Recorded Fluoxetine HCl [Prozac] 20 mg PO DAILY 11/29/19 Folic Acid 0.4 mg PO DAILY@199911/29/19 Hydrochlorothiazide 12.5 mg PO DAILY 11/29/19 Lisinopril [Zestril] 20 mg PO DAILY 11/29/19 Thiamine HCl 100 mg PO DAILY 11/29/19 Surgical History: no surgical history Psychiatric History: Anxiety, Depression Lives: Alone Smoking Status: Former smoker Tobacco Use: Non-smoker Alcohol: Heavy - Patient drinks 8 to 9 cans, 12 ounce, beer daily. Drugs: None - *Family History Maternal History Items: Hypertension Paternal History Items: Hypertension Review of Systems Constitutional: Denies: Anorexia, Fever HEENT: Denies: Difficulty Swallowing Cardiovascular: Denies: Chest Pain Respiratory: Denies: Cough Gastrointestinal: Denies: Abdominal Pain Musculoskeletal: Reports: Foot Pain Skin: Denies: Jaundice Neurological: Denies: Balance problems Patient Problems: Active and Suspected Problems Cellulitis of left lower extremity (Acute) COPD (chronic obstructive pulmonary disease) (Suspected) - Physical Exam Vitals/I&O's: Vital Signs Temp Pulse Resp BP Pulse Ox 98.3 F 78 16 111/65 93 12/01/19 03:30 12/01/19 07:14 12/01/19 07:14 12/01/19 03:30 12/01/19 07:14 Oxygen Flow Rate (L/min) 2 Oxygen Delivery Method Room Air Weight: 175 lb 7.807 oz Body Mass Index (BMI) 26.6 Intake and Output for Last 24 Hours 11/29/19 11/30/19 12/01/19 23:59 23:59 23:59 Intake Total 213.33 / 413.33 2773.67 / 2773.67 150 / 150 Output Total 850 / 850 300 / 300 Balance 213.33 / 413.33 1923.67 / 1923.67 -150 / -150 General: Alert, Oriented x3 Neck: No JVD Lungs: Normal air movement Cardiovascular: Regular rate, Regular Rhythm Abdomen: Soft, Non Tender Musculoskeletal: - - Patient has swelling of the left lateral lower extremity with cellulitis of the foot Laboratory Results 11/30/19 08:20: Troponin I 0.023 11/30/19 11:22: Troponin I 0.016 12/01/19 06:02: WBC 7.0, RBC 4.74, Hgb 16.1, Hct 49.5, MCV 104.4 H, MCH 34.0 H, MCHC 32.5, RDW Std Deviation 56.8 H, RDW Coeff of Eric 14.6, Plt Count 112 L, MPV 10.2 12/01/19 06:02: Sodium 135 L, Potassium 3.5, Chloride 99, Carbon Dioxide 31.0, Anion Gap 5, BUN 8, Creatinine 0.70, Estim Creat Clear Calc 61.75, Est GFR (MDRD) Af Amer 142, Est GFR (MDRD) Non-Af 118, BUN/Creatinine Ratio 11.5, Glucose 96, Calcium 8.2 L Current Medications Acetaminophen (Tylenol) 650 mg PO Q6H PRN PRN PRN Reason: Pain Score 1-10/Temp > 100.7 F Al Hydroxide/Mg Hydroxide (Mylanta Ii) 30 ml PO Q6H PRN PRN PRN Reason: Gastric Burning Albuterol Sulfate (Ventolin Aerosols) 2.5 mg INHALATION Q2H PRN PRN PRN Reason: Shortness of Breath/Wheezing Albuterol/Ipratropium (Duoneb) 3 ml INHALATION Q6HWA.RT [facility] Last Admin: 12/01/19 07:15 Dose: 3 ml Documented by: Aspirin (Aspirin, Baby) 81 mg PO DAILY@0800 [facility] Last Admin: 11/30/19 09:10 Dose: 81 mg Documented by: Dextrose (D50w Syringe) 0 gm IV X1 PRN; Protocol PRN Reason: Hypoglycemia Famotidine (Pepcid) 20 mg PO BID [facility] Last Admin: 11/30/19 21:31 Dose: 20 mg Documented by: Fluoxetine HCl (Prozac) 20 mg PO DAILY [facility] Last Admin: 11/30/19 09:11 Dose: 20 mg Documented by: Folic Acid (Folic Acid) 1 mg PO DAILY@0800 [facility] Last Admin: 11/30/19 09:10 Dose: 1 mg Documented by: Glucagon () 1 mg IM .X1 PRN PRN Reason: Hypoglycemia Guaifenesin (Robitussin) 20 ml PO Q4H PRN PRN PRN Reason: COUGH Hydralazine HCl (Apresoline Iv) 10 mg IV Q4H PRN PRN PRN Reason: SBP > 160 Hydrochlorothiazide () 12.5 mg PO DAILY [facility] Last Admin: 11/30/19 09:11 Dose: 12.5 mg Documented by: Cefazolin Sodium () 1 gm in 50 mls @ 100 mls/hr IV Q8 [facility] Last Infusion: 12/01/19 06:25 Dose: Infused Documented by: Sodium Chloride () 250 mls @ 15 mls/hr IV .[id number] PRN PRN Reason: Saline Flush Sodium Chloride () 250 mls @ 15 mls/hr IV .[id number] PRN PRN Reason: Additional IVPB Infusion Lisinopril (Zestril) 20 mg PO DAILY [facility] Last Admin: 11/30/19 09:11 Dose: 20 mg Documented by: Lorazepam (Ativan) 2 mg PO Q2H PRN PRN; Protocol PRN Reason: CIWA score > 8 but <15 Lorazepam (Ativan) 2 mg PO UD PRN; Protocol PRN Reason: CIWA score >/=15. Lorazepam (Ativan) 2 mg IV Q2H PRN PRN; Protocol PRN Reason: CIWA score > 8 but <15 Lorazepam (Ativan) 2 mg IV UD PRN; Protocol PRN Reason: CIWA score >/=15. Magnesium Hydroxide (Milk Of Magnesia) 30 ml PO DAILY PRN PRN PRN Reason: Constipation Melatonin (Melatonin) 3 mg PO QHS PRN PRN PRN Reason: INSOMNIA Metoprolol Tartrate (Lopressor (Beta Chacorta)) 25 mg PO BID [facility] Last Admin: 11/30/19 21:30 Dose: 25 mg Documented by: Morphine Sulfate () 4 mg IV Q3H PRN PRN PRN Reason: Pain Score 6-10/10 Multivitamins/Minerals ([facility]ivitamin With Minerals (Bkc)) [facility] Last Admin: 11/30/19 09:10 Dose: 1 tablet Documented by: Nitroglycerin (Nitrostat) 0.4 mg SUBLINGUAL Q5M PRN PRN Reason: CARDIAC/CHEST PAIN Ondansetron HCl (Zofran) 4 mg IV Q8H PRN PRN PRN Reason: NAUSEA/VOMITING Oxycodone HCl (Oxyir) 5 mg PO Q4H PRN PRN PRN Reason: Pain Score 4-5/10 Last Admin: 11/30/19 21:30 Dose: 5 mg Documented by: Prochlorperazine Edisylate (Compazine Iv) 5 mg IV Q4H PRN PRN PRN Reason: Breakthrough nausea/vomiting Psyllium Hydrophilic Mucilloid (Metamucil) 1 packet PO DAILY PRN PRN PRN Reason: Constipation Senna/Docusate Sodium (Senokot-S, Bonnie-Colace) 2 tablet PO BID PRN PRN PRN Reason: Constipation Sodium Chloride () 10 - 40 ml IV UD PRN PRN Reason: SALINE FLUSH Last Admin: 11/29/19 20:38 Dose: 10 ml Documented by: Thiamine HCl (Vitamin B1) 100 mg PO DAILY [facility] Last Admin: 11/30/19 09:11 Dose: 100 mg Documented by: Throat Lozenges (Cepacol Sore Throat Lozenge) 1 lozenge MUCOUS MEM Q2H PRN PRN PRN Reason: SORE THROAT Assessment/Plan All Active Problems Cellulitis of left lower extremity (Acute) 74-year-old male with possibly infected hematoma 1. The patient has a hematoma in the lateral aspect of his left lower extremity. The patient also has some pain in his ankle and some erythema of his foot. He may have cellulitis and this may be an infected hematoma as there is some skin breakage from where he fell. I feel that the area is very fluctuant and soft. I will aspirate this and send it for culture. This should relieve the pain associated with a hematoma and allow culture to be drawn in case this is infected. Recommend antibiotics for cellulitis. If this comes back infected and recurs it may require incision and drainage. I discussed infection and bleeding with the patient in detail and patient would like this aspirated. Luca Sears MD Pager: [facility] [address] [place] [address], [address] [place] [address] Office:
[2019-12-01] MEDS: oxyCODONE 5 MG Tablet PO (08:36)
[2019-12-01] MEDS: Folic Acid 1 MG Tablet PO (08:37)
[2019-12-01] MEDS: Multivitamins,Ther W-Minerals Tablet 1 TABLET PO (08:37)
[2019-12-01] MEDS: Lisinopril 20 MG Tablet PO (08:37)
[2019-12-01] MEDS: Thiamine Hydrochloride 100 MG Tablet PO (08:37)
[2019-12-01] MEDS: hydroCHLOROthiazide 12.5mg 12.5 MG PO (08:37)
[2019-12-01] MEDS: Aspirin 81 MG TAB.CHEW PO (08:37)
[2019-12-01] MEDS: Metoprolol Tartrate 25 MG Tablet PO ×2 (08:37→21:51)
[2019-12-01] MEDS: Famotidine 20 MG Tablet PO ×2 (08:37→21:51)
[2019-12-01] MEDS: FLUoxetine 20 MG Capsule PO (08:39)
--- NOTE | 2019-12-01 08:43 | OP.PCM_ITS ---
Problem List (1) Cellulitis of left lower extremity Status: Acute Report of Operation Date of Procedure: 12/01/19 Pre-Operative Diagnosis: Hematoma the left lower extremity Post-Operative Diagnosis: Same Surgery/Procedure Performed:: Incision and drainage of left lower extremity hematoma Specimen's removed: Hematoma fluid for culture Description of Procedure: The patient was consented and the left lower extremity was prepped and draped in usual sterile fashion. An area of skin was anesthetized with lidocaine. An 18- gauge Angiocath was placed into the fluid collection and aspiration was performed but minimal fluid was able to be removed. The fluid was sent for culture. Next an approximately 2 cm incision was made and the hematoma was evacuated. The skin was soft and there is no purulence identified. The skin was cleaned and bandage and Lincoln wrap were applied to the left lower extremity. Patient tolerated the procedure well.
--- NOTE | 2019-12-01 11:03 | PN_ITS ---
<Nani Luciano - Last Filed: 12/01/19 11:08> Patient Problems: Active and Suspected Problems Cellulitis of left lower extremity (Acute) COPD (chronic obstructive pulmonary disease) (Suspected) Subjective: Patient seen and examined. Left lower extremity hematoma drained today by surgery. Patient notes significant improvement in pain following hematoma drainage. Denies fever, chills. Denies other complaints. - Physical Exam Vitals/I&O's: Vital Signs Temp Pulse Resp BP Pulse Ox 97.9 F 85 18 117/81 H 93 12/01/19 08:40 12/01/19 08:40 12/01/19 08:40 12/01/19 08:40 12/01/19 08:40 Oxygen Flow Rate (L/min) 2 Oxygen Delivery Method Room Air Weight: 175 lb 7.807 oz Body Mass Index (BMI) 26.6 Intake and Output for Last 24 Hours 11/29/19 11/30/19 12/01/19 23:59 23:59 23:59 Intake Total 213.33 / 413.33 2773.67 / 2773.67 150 / 150 Output Total 850 / 850 300 / 300 Balance 213.33 / 413.33 1923.67 / 1923.67 -150 / -150 General: Alert, Oriented x3, Cooperative HEENT: Atraumatic, PERRLA, EOMI, Normocephalic Neck: Supple, No JVD, Negative Carotid Bruits Lungs: Clear to auscultation, Diminished Cardiovascular: - - Atrial fibrillation, rate controlled Abdomen: Bowel Sounds Present, Soft, Non Tender, Non-Distended Extremities: No clubbing, No cyanosis, No edema, Capillary Refill Less than 3 Seconds Skin: No rashes, No breakdown, - - Left lower extremity redness, improving. Hematoma drained with dressings in place. Musculoskeletal: No Tenderness to Palpation of Joints or Extremities Neurological: Cranial nerves II-XII grossly intact, Neuro grossly intact Psych/Mental Status: Normal Affect, Appropriate Laboratory Results 11/30/19 11:22: Troponin I 0.016 12/01/19 06:02: WBC 7.0, RBC 4.74, Hgb 16.1, Hct 49.5, MCV 104.4 H, MCH 34.0 H, MCHC 32.5, RDW Std Deviation 56.8 H, RDW Coeff of Eric 14.6, Plt Count 112 L, MPV 10.2 12/01/19 06:02: Sodium 135 L, Potassium 3.5, Chloride 99, Carbon Dioxide 31.0, Anion Gap 5, BUN 8, Creatinine 0.70, Estim Creat Clear Calc 61.75, Est GFR (MDRD) Af Amer 142, Est GFR (MDRD) Non-Af 118, BUN/Creatinine Ratio 11.5, Glucose 96, Calcium 8.2 L Current Medications Acetaminophen (Tylenol) 650 mg PO Q6H PRN PRN PRN Reason: Pain Score 1-10/Temp > 100.7 F Al Hydroxide/Mg Hydroxide (Mylanta Ii) 30 ml PO Q6H PRN PRN PRN Reason: Gastric Burning Albuterol Sulfate (Ventolin Aerosols) 2.5 mg INHALATION Q2H PRN PRN PRN Reason: Shortness of Breath/Wheezing Albuterol/Ipratropium (Duoneb) 3 ml INHALATION Q6HWA.RT [facility] Last Admin: 12/01/19 07:15 Dose: 3 ml Documented by: Aspirin (Aspirin, Baby) 81 mg PO DAILY@0800 [facility] Last Admin: 12/01/19 08:37 Dose: 81 mg Documented by: Dextrose (D50w Syringe) 0 gm IV X1 PRN; Protocol PRN Reason: Hypoglycemia Famotidine (Pepcid) 20 mg PO BID [facility] Last Admin: 12/01/19 08:37 Dose: 20 mg Documented by: Fluoxetine HCl (Prozac) 20 mg PO DAILY [facility] Last Admin: 12/01/19 08:39 Dose: 20 mg Documented by: Folic Acid (Folic Acid) 1 mg PO DAILY@0800 [facility] Last Admin: 12/01/19 08:37 Dose: 1 mg Documented by: Glucagon () 1 mg IM .X1 PRN PRN Reason: Hypoglycemia Guaifenesin (Robitussin) 20 ml PO Q4H PRN PRN PRN Reason: COUGH Hydralazine HCl (Apresoline Iv) 10 mg IV Q4H PRN PRN PRN Reason: SBP > 160 Hydrochlorothiazide () 12.5 mg PO DAILY [facility] Last Admin: 12/01/19 08:37 Dose: 12.5 mg Documented by: Cefazolin Sodium () 1 gm in 50 mls @ 100 mls/hr IV Q8 [facility] Last Infusion: 12/01/19 06:25 Dose: Infused Documented by: Sodium Chloride () 250 mls @ 15 mls/hr IV .[id number] PRN PRN Reason: Saline Flush Sodium Chloride () 250 mls @ 15 mls/hr IV .[id number] PRN PRN Reason: Additional IVPB Infusion Lisinopril (Zestril) 20 mg PO DAILY [facility] Last Admin: 12/01/19 08:37 Dose: 20 mg Documented by: Lorazepam (Ativan) 2 mg PO Q2H PRN PRN; Protocol PRN Reason: CIWA score > 8 but <15 Lorazepam (Ativan) 2 mg PO UD PRN; Protocol PRN Reason: CIWA score >/=15. Lorazepam (Ativan) 2 mg IV Q2H PRN PRN; Protocol PRN Reason: CIWA score > 8 but <15 Lorazepam (Ativan) 2 mg IV UD PRN; Protocol PRN Reason: CIWA score >/=15. Magnesium Hydroxide (Milk Of Magnesia) 30 ml PO DAILY PRN PRN PRN Reason: Constipation Melatonin (Melatonin) 3 mg PO QHS PRN PRN PRN Reason: INSOMNIA Metoprolol Tartrate (Lopressor (Beta Chacorta)) 25 mg PO BID [facility] Last Admin: 12/01/19 08:37 Dose: 25 mg Documented by: Morphine Sulfate () 4 mg IV Q3H PRN PRN PRN Reason: Pain Score 6-10/10 Multivitamins/Minerals (Multivitamin With Minerals (Bkc)) [facility] Last Admin: 12/01/19 08:37 Dose: 1 tablet Documented by: Nitroglycerin (Nitrostat) 0.4 mg SUBLINGUAL Q5M PRN PRN Reason: CARDIAC/CHEST PAIN Ondansetron HCl (Zofran) 4 mg IV Q8H PRN PRN PRN Reason: NAUSEA/VOMITING Oxycodone HCl (Oxyir) 5 mg PO Q4H PRN PRN PRN Reason: Pain Score 4-5/10 Last Admin: 12/01/19 08:36 Dose: 5 mg Documented by: Prochlorperazine Edisylate (Compazine Iv) 5 mg IV Q4H PRN PRN PRN Reason: Breakthrough nausea/vomiting Psyllium Hydrophilic Mucilloid (Metamucil) 1 packet PO DAILY PRN PRN PRN Reason: Constipation Senna/Docusate Sodium (Senokot-S, Bonnie-Colace) 2 tablet PO BID PRN PRN PRN Reason: Constipation Sodium Chloride () 10 - 40 ml IV UD PRN PRN Reason: SALINE FLUSH Last Admin: 11/29/19 20:38 Dose: 10 ml Documented by: Thiamine HCl (Vitamin B1) 100 mg PO DAILY [facility] Last Admin: 12/01/19 08:37 Dose: 100 mg Documented by: Throat Lozenges (Cepacol Sore Throat Lozenge) 1 lozenge MUCOUS MEM Q2H PRN PRN PRN Reason: SORE THROAT Medical Necessity - Tobacco Use Smoking Status: Former smoker Tobacco Use: Non-smoker Assessment/Plan All Active Problems Cellulitis of left lower extremity (Acute) 1. Left lower extremity cellulitis secondary to prior mechanical fall with injury/abrasion, associated lateral left lower extremity hematoma-duplex ultrasound negative for DVT. Continue IV cefazolin. Elevate left lower extremity. PRN pain regimen. CT left lower extremity showed 7.5 cm hematoma. No focal fluid collections or evidence of abscess. Dr. Sears, general surgery consulted and patient underwent incision and drainage of left lower extremity hematoma. Fluid sent for culture. Keep covered with dry sterile dressing followed by Lincoln wrap. 2. New onset paroxysmal atrial fibrillation-troponin negative. Rate controlled. Echocardiogram demonstrates an EF of 45%, mild aortic stenosis. Given chronic alcohol abuse and fall history, do not feel patient is appropriate for anticoagulation. Continue aspirin, metoprolol. CHADSVAC score 3. Ideally, patient should be considered for anticoagulation however patient has no interest in alcohol cessation and fall history as previously noted. 3. Chronic alcohol abuse- CIWA protocol, continue multivitamin, thiamine and folic acid. Patient has no interest in alcohol cessation. 4. Hypertension-stable, continue lisinopril, hydrochlorothiazide. 5. Former tobacco use-encouraged continued cessation. 6. GERD-continue famotidine. 7. Anxiety, depression-continue Prozac regimen. DVT prophylaxis-Lovenox subcu This patient was seen by JOSE Jacques under the supervision of Dr. Landaverde. <Cate Landaverde - Last Filed: 12/01/19 12:49> - Physical Exam Vitals/I&O's: Vital Signs Temp Pulse Resp BP Pulse Ox 97.9 F 85 18 117/81 H 93 12/01/19 08:40 12/01/19 08:40 12/01/19 08:40 12/01/19 08:40 12/01/19 08:40 Oxygen Flow Rate (L/min) 2 Oxygen Delivery Method Room Air Weight: 175 lb 7.807 oz Body Mass Index (BMI) 26.6 Intake and Output for Last 24 Hours 11/29/19 11/30/19 12/01/19 23:59 23:59 23:59 Intake Total 213.33 / 413.33 2773.67 / 2773.67 150 / 150 Output Total 850 / 850 300 / 300 Balance 213.33 / 413.33 1923.67 / 1923.67 -150 / -150 Laboratory Results 12/01/19 06:02: WBC 7.0, RBC 4.74, Hgb 16.1, Hct 49.5, MCV 104.4 H, MCH 34.0 H, MCHC 32.5, RDW Std Deviation 56.8 H, RDW Coeff of Eric 14.6, Plt Count 112 L, MPV 10.2 12/01/19 06:02: Sodium 135 L, Potassium 3.5, Chloride 99, Carbon Dioxide 31.0, Anion Gap 5, BUN 8, Creatinine 0.70, Estim Creat Clear Calc 61.75, Est GFR (MDRD) Af Amer 142, Est GFR (MDRD) Non-Af 118, BUN/Creatinine Ratio 11.5, Glucose 96, Calcium 8.2 L Current Medications Acetaminophen (Tylenol) 650 mg PO Q6H PRN PRN PRN Reason: Pain Score 1-10/Temp > 100.7 F Al Hydroxide/Mg Hydroxide (Mylanta Ii) 30 ml PO Q6H PRN PRN PRN Reason: Gastric Burning Albuterol Sulfate (Ventolin Aerosols) 2.5 mg INHALATION Q2H PRN PRN PRN Reason: Shortness of Breath/Wheezing Albuterol/Ipratropium (Duoneb) 3 ml INHALATION Q6HWA.RT [facility] Last Admin: 12/01/19 07:15 Dose: 3 ml Documented by: Aspirin (Aspirin, Baby) 81 mg PO DAILY@0800 [facility] Last Admin: 06/07/20 08:37 Dose: 81 mg Documented by: Dextrose (D50w Syringe) 0 gm IV X1 PRN; Protocol PRN Reason: Hypoglycemia Famotidine (Pepcid) 20 mg PO BID [facility] Last Admin: 12/01/19 08:37 Dose: 20 mg Documented by: Fluoxetine HCl (Prozac) 20 mg PO DAILY [facility] Last Admin: 12/01/19 08:39 Dose: 20 mg Documented by: Folic Acid (Folic Acid) 1 mg PO DAILY@0800 [facility] Last Admin: 12/01/19 08:37 Dose: 1 mg Documented by: Glucagon () 1 mg IM .X1 PRN PRN Reason: Hypoglycemia Guaifenesin (Robitussin) 20 ml PO Q4H PRN PRN PRN Reason: COUGH Hydralazine HCl (Apresoline Iv) 10 mg IV Q4H PRN PRN PRN Reason: SBP > 160 Hydrochlorothiazide () 12.5 mg PO DAILY [facility] Last Admin: 12/01/19 08:37 Dose: 12.5 mg Documented by: Cefazolin Sodium () 1 gm in 50 mls @ 100 mls/hr IV Q8 [facility] Last Infusion: 12/01/19 06:25 Dose: Infused Documented by: Sodium Chloride () 250 mls @ 15 mls/hr IV .[id number] PRN PRN Reason: Saline Flush Sodium Chloride () 250 mls @ 15 mls/hr IV .[id number] PRN PRN Reason: Additional IVPB Infusion Lisinopril (Zestril) 20 mg PO DAILY [facility] Last Admin: 12/01/19 08:37 Dose: 20 mg Documented by: Lorazepam (Ativan) 2 mg PO Q2H PRN PRN; Protocol PRN Reason: CIWA score > 8 but <15 Lorazepam (Ativan) 2 mg PO UD PRN; Protocol PRN Reason: CIWA score >/=15. Lorazepam (Ativan) 2 mg IV Q2H PRN PRN; Protocol PRN Reason: CIWA score > 8 but <15 Lorazepam (Ativan) 2 mg IV UD PRN; Protocol PRN Reason: CIWA score >/=15. Magnesium Hydroxide (Milk Of Magnesia) 30 ml PO DAILY PRN PRN PRN Reason: Constipation Melatonin (Melatonin) 3 mg PO QHS PRN PRN PRN Reason: INSOMNIA Metoprolol Tartrate (Lopressor (Beta Chacorta)) 25 mg PO BID [facility] Last Admin: 12/01/19 08:37 Dose: 25 mg Documented by: Morphine Sulfate () 4 mg IV Q3H PRN PRN PRN Reason: Pain Score 6-10/10 Multivitamins/Minerals (Multivitamin With Minerals (Bkc)) [facility] Last Admin: 12/01/19 08:37 Dose: 1 tablet Documented by: Nitroglycerin (Nitrostat) 0.4 mg SUBLINGUAL Q5M PRN PRN Reason: CARDIAC/CHEST PAIN Ondansetron HCl (Zofran) 4 mg IV Q8H PRN PRN PRN Reason: NAUSEA/VOMITING Oxycodone HCl (Oxyir) 5 mg PO Q4H PRN PRN PRN Reason: Pain Score 4-5/10 Last Admin: 12/01/19 08:36 Dose: 5 mg Documented by: Prochlorperazine Edisylate (Compazine Iv) 5 mg IV Q4H PRN PRN PRN Reason: Breakthrough nausea/vomiting Psyllium Hydrophilic Mucilloid (Metamucil) 1 packet PO DAILY PRN PRN PRN Reason: Constipation Senna/Docusate Sodium (Senokot-S, Bonnie-Colace) 2 tablet PO BID PRN PRN PRN Reason: Constipation Sodium Chloride () 10 - 40 ml IV UD PRN PRN Reason: SALINE FLUSH Last Admin: 11/29/19 20:38 Dose: 10 ml Documented by: Thiamine HCl (Vitamin B1) 100 mg PO DAILY [facility] Last Admin: 12/01/19 08:37 Dose: 100 mg Documented by: Throat Lozenges (Cepacol Sore Throat Lozenge) 1 lozenge MUCOUS MEM Q2H PRN PRN PRN Reason: SORE THROAT Assessment/Plan Patient seen by Nani Luciano NP-Yuri under my supervision Patient seen and examined. He still complains of pain over the left lower extremity. Review of symptoms otherwise negative. General surgery consulted for possible aspiration or I&D. o/e: Vital Signs Temp Pulse Resp BP Pulse Ox 97.9 F 85 18 117/81 H 93 12/01/19 08:40 12/01/19 08:40 12/01/19 08:40 12/01/19 08:40 12/01/19 08:40 General: Alert, Oriented x3, Cooperative HEENT: Atraumatic, PERRLA, EOMI, Normocephalic Neck: Supple, No JVD, Negative Carotid Bruits Lungs: Clear to auscultation, Diminished Cardiovascular: - - Atrial fibrillation, rate controlled Abdomen: Bowel Sounds Present, Soft, Non Tender, Non-Distended Extremities: No clubbing, No cyanosis, No edema, Capillary Refill Less than 3 Seconds Skin: No rashes, No breakdown, - - Left lower extremity redness and mild swelling; has a focal tense tender swelling ~ 10cm in diameter, likely a h ematoma Musculoskeletal: No Tenderness to Palpation of Joints or Extremities Neurological: Cranial nerves II-XII grossly intact, Neuro grossly intact Psych/Mental Status: Normal Affect, Appropriate Patient currently on IV cefazolin. Will continue. Discussed with general surgery about IND and this was done this morning. Hematoma fluid sent for culture. He has remained rate controlled. Continue metoprolol. Patient is at increased risk for falls due to chronic alcohol abuse and is high risk for bleeding with anticoagulation. Patient currently only on aspirin. Fall precautions. For likely DC tomorrow. Rest as per JOSE Jacques's notes I have reviewed and endorsed. Inpatient E&M: 45242 Subs Hosp L2
[2019-12-02 03:28] VITALS: BP 131/91; PULSE 73; RESP 18; TEMP 36.4; O2SAT 92
[2019-12-02] MEDS: oxyCODONE 5 MG Tablet PO (03:34)
[2019-12-02] MEDS: Cefazolin 1 GM/50 ML BAG IV (05:28)
[2019-12-02 07:00] VITALS: PULSE 78
[2019-12-02 07:14] VITALS: PULSE 70; RESP 16; O2SAT 91
[2019-12-02] MEDS: Ipratropium/Albuterol Sulfate 3 ML AMPUL.NEB INHALATION (07:14)
--- NOTE | 2019-12-02 07:28 | PN.SURG_ITS ---
Patient Problems: Active and Suspected Problems Cellulitis of left lower extremity (Acute) COPD (chronic obstructive pulmonary disease) (Suspected) Subjective: Patient is doing well with no complaints. He reports his pain is improved since yesterday. - Physical Exam Vitals/I&O's: Vital Signs Temp Pulse Resp BP Pulse Ox 97.6 F L 73 18 131/91 H 92 12/02/19 03:28 12/02/19 03:28 12/02/19 03:28 12/02/19 03:28 12/02/19 03:28 Oxygen Flow Rate (L/min) 2 Oxygen Delivery Method Room Air Weight: 175 lb 7.807 oz Body Mass Index (BMI) 26.6 Intake and Output for Last 24 Hours 11/30/19 12/01/19 12/02/19 23:59 23:59 23:59 Intake Total 2773.67 / 2773.67 790 / 990 370 / 370 Output Total 850 / 850 800 / 1050 350 / 350 Balance 1923.67 / 1923.67 -10 / -60 General: Alert, Oriented x3 Neck: No JVD Cardiovascular: Regular rate, Regular Rhythm Abdomen: Soft, Non Tender, Non-Distended Current Medications Acetaminophen (Tylenol) 650 mg PO Q6H PRN PRN PRN Reason: Pain Score 1-10/Temp > 100.7 F Al Hydroxide/Mg Hydroxide (Mylanta Ii) 30 ml PO Q6H PRN PRN PRN Reason: Gastric Burning Albuterol Sulfate (Ventolin Aerosols) 2.5 mg INHALATION Q2H PRN PRN PRN Reason: Shortness of Breath/Wheezing Albuterol/Ipratropium (Duoneb) 3 ml INHALATION Q6HWA.RT [facility] Last Admin: 12/02/19 07:14 Dose: 3 ml Documented by: Aspirin (Aspirin, Baby) 81 mg PO DAILY@0800 [facility] Last Admin: 12/01/19 08:37 Dose: 81 mg Documented by: Dextrose (D50w Syringe) 0 gm IV X1 PRN; Protocol PRN Reason: Hypoglycemia Famotidine (Pepcid) 20 mg PO BID [facility] Last Admin: 12/01/19 21:51 Dose: 20 mg Documented by: Fluoxetine HCl (Prozac) 20 mg PO DAILY [facility] Last Admin: 12/01/19 08:39 Dose: 20 mg Documented by: Folic Acid (Folic Acid) 1 mg PO DAILY@0800 [facility] Last Admin: 12/01/19 08:37 Dose: 1 mg Documented by: Glucagon () 1 mg IM .X1 PRN PRN Reason: Hypoglycemia Guaifenesin (Robitussin) 20 ml PO Q4H PRN PRN PRN Reason: COUGH Hydralazine HCl (Apresoline Iv) 10 mg IV Q4H PRN PRN PRN Reason: SBP > 160 Hydrochlorothiazide () 12.5 mg PO DAILY [facility] Last Admin: 12/01/19 08:37 Dose: 12.5 mg Documented by: Cefazolin Sodium () 1 gm in 50 mls @ 100 mls/hr IV Q8 [facility] Last Infusion: 12/02/19 05:58 Dose: Infused Documented by: Sodium Chloride () 250 mls @ 15 mls/hr IV .[id number] PRN PRN Reason: Saline Flush Sodium Chloride () 250 mls @ 15 mls/hr IV .[id number] PRN PRN Reason: Additional IVPB Infusion Lisinopril (Zestril) 20 mg PO DAILY [facility] Last Admin: 12/01/19 08:37 Dose: 20 mg Documented by: Lorazepam (Ativan) 2 mg PO Q2H PRN PRN; Protocol PRN Reason: CIWA score > 8 but <15 Lorazepam (Ativan) 2 mg PO UD PRN; Protocol PRN Reason: CIWA score >/=15. Lorazepam (Ativan) 2 mg IV Q2H PRN PRN; Protocol PRN Reason: CIWA score > 8 but <15 Lorazepam (Ativan) 2 mg IV UD PRN; Protocol PRN Reason: CIWA score >/=15. Magnesium Hydroxide (Milk Of Magnesia) 30 ml PO DAILY PRN PRN PRN Reason: Constipation Melatonin (Melatonin) 3 mg PO QHS PRN PRN PRN Reason: INSOMNIA Metoprolol Tartrate (Lopressor (Beta Chacorta)) 25 mg PO BID [facility] Last Admin: 12/01/19 21:51 Dose: 25 mg Documented by: Morphine Sulfate () 4 mg IV Q3H PRN PRN PRN Reason: Pain Score 6-10/10 Multivitamins/Minerals (Multivitamin With Minerals (Bkc)) 1 tablet PO DAILYCM [facility] Last Admin: 12/01/19 08:37 Dose: 1 tablet Documented by: Nitroglycerin (Nitrostat) 0.4 mg SUBLINGUAL Q5M PRN PRN Reason: CARDIAC/CHEST PAIN Ondansetron HCl (Zofran) 4 mg IV Q8H PRN PRN PRN Reason: NAUSEA/VOMITING Oxycodone HCl (Oxyir) 5 mg PO Q4H PRN PRN PRN Reason: Pain Score 4-5/10 Last Admin: 12/02/19 03:34 Dose: 5 mg Documented by: Prochlorperazine Edisylate (Compazine Iv) 5 mg IV Q4H PRN PRN PRN Reason: Breakthrough nausea/vomiting Psyllium Hydrophilic Mucilloid (Metamucil) 1 packet PO DAILY PRN PRN PRN Reason: Constipation Senna/Docusate Sodium (Senokot-S, Bonnie-Colace) 2 tablet PO BID PRN PRN PRN Reason: Constipation Sodium Chloride () 10 - 40 ml IV UD PRN PRN Reason: SALINE FLUSH Last Admin: 11/29/19 20:38 Dose: 10 ml Documented by: Thiamine HCl (Vitamin B1) 100 mg PO DAILY [facility] Last Admin: 12/01/19 08:37 Dose: 100 mg Documented by: Throat Lozenges (Cepacol Sore Throat Lozenge) 1 lozenge MUCOUS MEM Q2H PRN PRN PRN Reason: SORE THROAT Medical Necessity - Tobacco Use Smoking Status: Former smoker Tobacco Use: Non-smoker Assessment/Plan All Active Problems Cellulitis of left lower extremity (Acute) 74-year-old male with cellulitis and hematoma of the left lower extremity 1. Patient is doing well this morning after drainage of hematoma on the left lower extremity. Cellulitis has resolved and the patient is having minimal edema. He may be discharged home today from my standpoint and follow-up with me later this week for wound check. Luca Sears MD Pager: [facility] [address] [place] [address], [address] [place] [address] Office:
[2019-12-02 08:43] VITALS: BP 145/85; PULSE 68; RESP 15; TEMP 36.7; O2SAT 92
[2019-12-02 08:46] VITALS: PULSE 68
[2019-12-02] MEDS: Metoprolol Tartrate 25 MG Tablet PO (08:46)
[2019-12-02] MEDS: hydroCHLOROthiazide 12.5mg 12.5 MG PO (08:46)
[2019-12-02] MEDS: Aspirin 81 MG TAB.CHEW PO (08:46)
[2019-12-02] MEDS: Thiamine Hydrochloride 100 MG Tablet PO (08:46)
[2019-12-02] MEDS: Famotidine 20 MG Tablet PO (08:46)
[2019-12-02] MEDS: Folic Acid 1 MG Tablet PO (08:46)
[2019-12-02] MEDS: Multivitamins,Ther W-Minerals Tablet 1 TABLET PO (08:46)
[2019-12-02] MEDS: Lisinopril 20 MG Tablet PO (08:46)
[2019-12-02] MEDS: FLUoxetine 20 MG Capsule PO (08:48)
--- NOTE | 2019-12-02 10:10 | DCINST_ITS ---
- Discharge Diagnoses Current Active Problems: Current Active and Chronic Problems Cellulitis of left lower extremity (Acute) Alcohol abuse (Chronic) HTN (hypertension) (Chronic) Anxiety and depression (Chronic) Former tobacco use (Chronic) You will use the following diet at home:: No restrictions Discharge Activity: Return to Normal Activity Call your doctor if you observe: Shortness of breath, Dizziness, Fainting spells, Chest pain Allergies/Adverse Reactions: Allergies No Known Allergies Allergy (Verified 11/06/13 22:51) Medications to take at Discharge Fluoxetine HCl [Prozac] 20 mg PO DAILY 11/29/19 Folic Acid 0.4 mg PO DAILY@199911/29/19 Lisinopril [Zestril] 20 mg PO DAILY 11/29/19 Thiamine HCl 100 mg PO DAILY 11/29/19 Aspirin [Aspirin, Baby] 81 mg PO DAILY@0800 #30 tab.chew 12/02/19 Cefadroxil [Duricef] 1,000 mg PO BID #24 cap 12/02/19 Metoprolol Tartrate [Lopressor (beta richie)] 25 mg PO BID #60 tab 12/02/19 The following prescriptions were given: Aspirin [Aspirin, Baby] 81 mg PO DAILY@0800 #30 tab.chew Transmission Status: Pending to [facility] #30 Cefadroxil [Duricef] 1,000 mg PO BID #24 cap Transmission Status: Pending to [facility] #30 Metoprolol Tartrate [Lopressor (beta richie)] 25 mg PO BID #60 tab Transmission Status: Pending to [facility] #30 Primary Care Physician: Paulo Padilla MD [Primary Care Provider] - Please follow up with your Primary Care Physician in: 3-5 Days Test Results: Test results from this visit will be discussed in further detail at your follow- up appointment, if applicable. Please Follow Up With: Luca Sears MD When: 3-5 Days Proposed Discharge Date: 12/02/19
--- NOTE | 2019-12-02 10:15 | PCM.DC.SUM ---
Discharge Date and Diagnosis Date of Admission: 11/29/19 Date of Discharge: 12/02/19 - Primary Discharge Diagnosis Acute Problems: Active Problems 1. Left lower extremity cellulitis secondary to prior mechanical fall with injury/abrasion, associated lateral left lower extremity hematoma s/p I&D 2. New onset paroxysmal atrial fibrillation 3. Chronic alcohol abuse 4. Hypertension 5. Former tobacco use 6. GERD 7. Anxiety, depression Suspected Problems: Suspected Problems COPD (chronic obstructive pulmonary disease) (Suspected) - Secondary Discharge Diagnosis Chronic Problems: Chronic Problems Alcohol abuse (Chronic) HTN (hypertension) (Chronic) Anxiety and depression (Chronic) Former tobacco use (Chronic) Hospital Course and Treatment Imaging Results: Diagnostic Data Tibia/Fibula X-Ray 11/29/19 16:26 IMPRESSION: Normal x-ray examination of the tibia and fibula. Electronically Signed: Jorge Bob MD at 16:38 EDT , Service support , Chest X-Ray 11/30/19 05:55 IMPRESSION: No acute cardiopulmonary abnormality. at 0750 Reported and signed by: Becca Moreno MD Electronically Signed: Becca Moreno MD at 7:50 EDT Tel , Service support , Lower Extremity CT 11/30/19 15:19 IMPRESSION: As indicated on the radiograph from yesterday, probable 7.5 cm subcutaneous hematoma along the lateral aspect of the midcalf. Electronically Signed: Jorge Bob MD at 16:44 EDT , Service support , Dr. Sears- General surgery Operations: - - Hematoma I&D Procedures: None Summary of Care Provided: The patient is a 74 year old M admitted 11/29/2019 due to fall with left lower extremity injury. 1. Left lower extremity cellulitis secondary to prior mechanical fall with injury/abrasion, associated lateral left lower extremity hematoma-duplex ultrasound negative for DVT. IV cefazolin during admission, transition to Duricef to complete course of antibiotics. Elevate left lower extremity. CT left lower extremity showed 7.5 cm hematoma. No focal fluid collections or evidence of abscess. Dr. Sears, general surgery consulted and patient underwent incision and drainage of left lower extremity hematoma. Fluid sent for culture, no growth thus far. Keep covered with dry sterile dressing followed by Lincoln wrap. Follow-up with Dr. Sears 3-5 days. 2. New onset paroxysmal atrial fibrillation-troponin negative. Rate controlled. Echocardiogram demonstrates an EF of 45%, mild aortic stenosis, left and right atrium moderately enlarged. Suspect atrial fibrillation is not new however this is the first documented episode. Given chronic alcohol abuse and fall history, do not feel patient is appropriate for anticoagulation. Continue aspirin, metoprolol. CHADSVAC score 3. Ideally, patient should be considered for anticoagulation however patient has no interest in alcohol cessation and fall history as previously noted. Extensively discussed with patient stroke risk. He is not amendable to anticoagulation at this time given previously mentioned concerns. PCP, Dr. Padilla's office updated on plan of care with patient and recommended outpatient stress test. Patient may further discuss anticoagulation with PCP as outpatient. 3. Chronic alcohol abuse- CIWA protocol during admission. Patient has no interest in alcohol cessation. 4. Hypertension-stable, continue lisinopril, metoprolol. HCTZ discontinued. 5. Former tobacco use-encouraged continued cessation. 6. GERD-continue famotidine. 7. Anxiety, depression-continue Prozac regimen. General: Alert, Oriented x3, Cooperative HEENT: Atraumatic, PERRLA, EOMI, Normocephalic Neck: Supple, No JVD, Negative Carotid Bruits Lungs: Clear to auscultation, Diminished Cardiovascular: - - Atrial fibrillation, rate controlled Abdomen: Bowel Sounds Present, Soft, Non Tender, Non-Distended Extremities: No clubbing, No cyanosis, No edema, Capillary Refill Less than 3 Seconds Skin: No rashes, No breakdown, - - Left lower extremity redness, improving. Hematoma s/p I&D with dressings in place. Musculoskeletal: No Tenderness to Palpation of Joints or Extremities Neurological: Cranial nerves II-XII grossly intact, Neuro grossly intact Psych/Mental Status: Normal Affect, Appropriate Patient seen and examined prior to discharge. Physical assessment as noted above. Patient is stable for discharge with follow up recommendations as noted above. This patient was seen by JOSE Jacques under the supervision of Dr. Barros. - Physical Exam Vitals/I&O's: Vital Signs Temp Pulse Resp BP Pulse Ox 98.1 F 68 15 145/85 H 92 12/02/19 08:43 12/02/19 08:46 12/02/19 08:43 12/02/19 08:43 12/02/19 08:43 Oxygen Flow Rate (L/min) 2 Oxygen Delivery Method Room Air Weight: 175 lb 7.807 oz Body Mass Index (BMI) 26.6 Intake and Output for Last 24 Hours 11/30/19 12/01/19 12/02/19 23:59 23:59 23:59 Intake Total 2773.67 / 2773.67 790 / 990 370 / 370 Output Total 850 / 850 800 / 1050 350 / 350 Balance 1923.67 / 1923.67 -10 / -60 Current Medications Acetaminophen (Tylenol) 650 mg PO Q6H PRN PRN PRN Reason: Pain Score 1-10/Temp > 100.7 F Al Hydroxide/Mg Hydroxide (Mylanta Ii) 30 ml PO Q6H PRN PRN PRN Reason: Gastric Burning Albuterol Sulfate (Ventolin Aerosols) 2.5 mg INHALATION Q2H PRN PRN PRN Reason: Shortness of Breath/Wheezing Albuterol/Ipratropium (Duoneb) 3 ml INHALATION Q6HWA.RT [facility] Last Admin: 12/02/19 07:14 Dose: 3 ml Documented by: Aspirin (Aspirin, Baby) 81 mg PO DAILY@0800 [facility] Last Admin: 12/02/19 08:46 Dose: 81 mg Documented by: Dextrose (D50w Syringe) 0 gm IV X1 PRN; Protocol PRN Reason: Hypoglycemia Famotidine (Pepcid) 20 mg PO BID [facility] Last Admin: 12/02/19 08:46 Dose: 20 mg Documented by: Fluoxetine HCl (Prozac) 20 mg PO DAILY [facility] Last Admin: 12/02/19 08:48 Dose: 20 mg Documented by: Folic Acid (Folic Acid) 1 mg PO DAILY@0800 [facility] Last Admin: 12/02/19 08:46 Dose: 1 mg Documented by: Glucagon () 1 mg IM .X1 PRN PRN Reason: Hypoglycemia Guaifenesin (Robitussin) 20 ml PO Q4H PRN PRN PRN Reason: COUGH Hydralazine HCl (Apresoline Iv) 10 mg IV Q4H PRN PRN PRN Reason: SBP > 160 Hydrochlorothiazide () 12.5 mg PO DAILY [facility] Last Admin: 12/02/19 08:46 Dose: 12.5 mg Documented by: Cefazolin Sodium () 1 gm in 50 mls @ 100 mls/hr IV Q8 [facility] Last Infusion: 12/02/19 05:58 Dose: Infused Documented by: Sodium Chloride () 250 mls @ 15 mls/hr IV .[id number] PRN PRN Reason: Saline Flush Sodium Chloride () 250 mls @ 15 mls/hr IV .[id number] PRN PRN Reason: Additional IVPB Infusion Lisinopril (Zestril) 20 mg PO DAILY [facility] Last Admin: 12/02/19 08:46 Dose: 20 mg Documented by: Lorazepam (Ativan) 2 mg PO Q2H PRN PRN; Protocol PRN Reason: CIWA score > 8 but <15 Lorazepam (Ativan) 2 mg PO UD PRN; Protocol PRN Reason: CIWA score >/=15. Lorazepam (Ativan) 2 mg IV Q2H PRN PRN; Protocol PRN Reason: CIWA score > 8 but <15 Lorazepam (Ativan) 2 mg IV UD PRN; Protocol PRN Reason: CIWA score >/=15. Magnesium Hydroxide (Milk Of Magnesia) 30 ml PO DAILY PRN PRN PRN Reason: Constipation Melatonin (Melatonin) 3 mg PO QHS PRN PRN PRN Reason: INSOMNIA Metoprolol Tartrate (Lopressor (Beta Chacorta)) 25 mg PO BID [facility] Last Admin: 12/02/19 08:46 Dose: 25 mg Documented by: Morphine Sulfate () 4 mg IV Q3H PRN PRN PRN Reason: Pain Score 6-10/10 Multivitamins/Minerals ([facility]ivitamin With Minerals (Bkc)) [facility] Last Admin: 12/02/19 08:46 Dose: 1 tablet Documented by: Nitroglycerin (Nitrostat) 0.4 mg SUBLINGUAL Q5M PRN PRN Reason: CARDIAC/CHEST PAIN Ondansetron HCl (Zofran) 4 mg IV Q8H PRN PRN PRN Reason: NAUSEA/VOMITING Oxycodone HCl (Oxyir) 5 mg PO Q4H PRN PRN PRN Reason: Pain Score 4-5/10 Last Admin: 12/02/19 03:34 Dose: 5 mg Documented by: Prochlorperazine Edisylate (Compazine Iv) 5 mg IV Q4H PRN PRN PRN Reason: Breakthrough nausea/vomiting Psyllium Hydrophilic Mucilloid (Metamucil) 1 packet PO DAILY PRN PRN PRN Reason: Constipation Senna/Docusate Sodium (Senokot-S, Bonnie-Colace) 2 tablet PO BID PRN PRN PRN Reason: Constipation Sodium Chloride () 10 - 40 ml IV UD PRN PRN Reason: SALINE FLUSH Last Admin: 11/29/19 20:38 Dose: 10 ml Documented by: Thiamine HCl (Vitamin B1) 100 mg PO DAILY [facility] Last Admin: 12/02/19 08:46 Dose: 100 mg Documented by: Throat Lozenges (Cepacol Sore Throat Lozenge) 1 lozenge MUCOUS MEM Q2H PRN PRN PRN Reason: SORE THROAT Discharge Diet: No Restrictions Discharge Activity: Return to Normal Activity Call your doctor if you observe: Shortness of breath, Dizziness, Fainting spells, Chest pain Home Medications: Medications to take at Discharge Fluoxetine HCl [Prozac] 20 mg PO DAILY 11/29/19 Folic Acid 0.4 mg PO DAILY@199911/29/19 Lisinopril [Zestril] 20 mg PO DAILY 11/29/19 Thiamine HCl 100 mg PO DAILY 11/29/19 Aspirin [Aspirin, Baby] 81 mg PO DAILY@0800 #30 tab.chew 12/02/19 Cefadroxil [Duricef] 1,000 mg PO BID #24 cap 12/02/19 Metoprolol Tartrate [Lopressor (beta chacorta)] 25 mg PO BID #60 tab 12/02/19 Following Prescrptions Were Given to Patient: Aspirin [Aspirin, Baby] 81 mg PO DAILY@0800 #30 tab.chew Transmission Status: Pending to [facility] #30 Cefadroxil [Duricef] 1,000 mg PO BID #24 cap Transmission Status: Pending to [facility] #30 Metoprolol Tartrate [Lopressor (beta chacorta)] 25 mg PO BID #60 tab Transmission Status: Pending to [facility] #30 Primary Care Physician: Paulo Padilla MD [Primary Care Provider] - Please follow up with your Primary Care Physician in: 3-5 Days Please Follow Up With: Luca Sears MD When: 3-5 Days Disposition: Home Minutes spent on discharge:: 35 Patient Condition:: Stable Medical Necessity - Tobacco Use Smoking Status: Former smoker Tobacco Use: Non-smoker Meaningful Use Info Meaningful Use Diagnoses (Choose all that apply): None applicable
--- NOTE | 2019-12-02 11:09 | PHA.DC.MC ---
Pharmacy Service has performed discharge medication reconciliation and counseling for this patient. The patient's discharge medication list was reviewed for discrepancies and discrepancies were resolved. The patient was counseled on the following discharge medications and changes in medications for homegoing were reviewed. The Reason for Use, instructions for use, and potential side effects were reviewed for all new medications. 1. Lopressor 2. Aspirin 3. Cefadroxil The patient's questions regarding all of their medications were answered. The patient demonstrated some understanding but would benefit from further education and reinforcement. Home Medications Fluoxetine HCl [Prozac] 20 mg PO DAILY 11/29/19 Folic Acid 0.4 mg PO DAILY@199911/29/19 Lisinopril [Zestril] 20 mg PO DAILY 11/29/19 Thiamine HCl 100 mg PO DAILY 11/29/19 Aspirin [Aspirin, Baby] 81 mg PO DAILY@0800 #30 tab.chew 12/02/19 Cefadroxil [Duricef] 1,000 mg PO BID #24 cap 12/02/19 Metoprolol Tartrate [Lopressor (beta richie)] 25 mg PO BID #60 tab 12/02/19
--- NOTE | 2019-12-03 12:38 | CASEMGMT ---
IVONNE DC PHONE CALL DC DATE: 12/02/2019 DC DISPOSITION: Home DC DIAGNOSIS: Cellulitis, ETOH abuse LACE/STRATA: 04/28 F/U APPTS MADE PRIOR TO DC: yes Attempted call to pt's phone. No answer and no message machine w/name identifier. An MCQUEENN RN ACM
--- NOTE | 2019-12-04 12:22 | CASEMGMT ---
Social Work Follow up phone call: Date of discharge: 12/02/19 reason for follow up call: advance directives duration of call: 2 minutes Outcome of call: Voice mail left with info to contact SW with questions or assistance to complete AD ZAN Hayes
--- OUTSIDE RECORDS SUMMARY | 2020-04-12 08:42 | XMS RPT_ITS | CCD ---
:1945 External Reference #:[id number] Author Organization [facility] [employer] Care Team Providers Name Role Phone Unavailable Unavailable Unavailable Results Result Name Value Range Unit Interpretation Flag Date Location obsolete on 2019-11 OBSOLETE Refill (FAMPWS) Normal 12-24-2019 [facility] ANA M VALDEZ ([id number]) [address] [facility] Date Time Provider Department ([id number]) 12/24/19 DWIGHT PADILLA) FAMPWS During your visit today, we recorded the following informati on about you: Juani Harmon Ma 12/24/2019 10:36 AM Signed Patient has been identified by name and date of : Yes Pending Prescriptions Disp Refills FOLIC ACID 400 MCG TABLET 30 tablet 5 Sig: Take 1 tablet by mouth once daily. JEANNE: No RX INSTRUCTIONS: Patient aware RX will be sent to pharmacy. No need to notify patient. 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] MANUEL (generalized anxiety disorder) [F41.1] Hypertension, essential [I10] Order(s):folic acid 400 mcg tabletTake 1 tablet by blas th once daily.Disp: 30 tabletRfl: 5 FLUoxetine (PROZAC) 20 mg capsuleTake 1 capsule by mouth onc e daily.Disp: 30 capsuleRfl: 5 lisinopril (ZESTRIL, PRINIVIL) 20 mg tabletTake 1 tablet by mouth once daily.Disp: 30 tabletRfl: 5 thiamine (VITAMIN B-1) 100 mg tabletTake 1 tablet by mouth o nce daily.Disp: 30 tabletRfl: 5 Hydrochlorothiazide 12.5 mg capsuleTake 1 capsule by mouth o nce daily.Disp: 30 capsuleRfl: 5 Prescriptions as of 12/24/2019 Sig: FOLIC ACID 400 MCG TABLET Take 1 tablet by mouth once d* FLUOXETINE 20 MG CAPSULE Take 1 capsule by mouth once * LISINOPRIL 20 MG TABLET Take 1 tablet by mouth once d* THIAMINE HCL (VITAMIN B1) 100* Take 1 tablet by mouth once d * HYDROCHLOROTHIAZIDE 12.5 MG C* Take 1 capsule by mouth once * METOPROLOL TARTRATE 25 MG TAB* Take 1 tablet by mouth once d * ASPIRIN 81 MG CHEWABLE TABLET Take 1 tablet by mouth once d* PERFLUTREN LIPID MICROSPHERES* Inject 1.3 mL intravenously a * Problem List As Of Date 12/24/2019 Noted Resolved Paroxysmal atrial fibrillation (HCC) [I48.0] Systolic heart failure (HCC) [I50.20] More... Alcoholic cirrhosis (HCC) [K70.30] Alcoholism (HCC) [F10.20] Hypertension [I10] Elevated TSH [R79.89] Subclinical hypothyroidism [E03.9] Prescriptions ordered this encounter Disp Refills Start End FOLIC ACID 400 MCG TABLET 30 t* 12/24/2019 Route: ORAL Sig: Take 1 tablet by mouth once daily. FLUOXETINE 20 MG CAPSULE 30 c* 12/24/2019 Route: ORAL Sig: Take 1 capsule by mouth once daily. LISINOPRIL 20 MG TABLET 30 t* 12/24/2019 Route: ORAL Sig: Take 1 tablet by mouth once daily. THIAMINE HCL (VITAMIN B1) 100 MG TAB* 30 t* 12/24/2019 Route: ORAL Sig: Take 1 tablet by mouth once daily. HYDROCHLOROTHIAZIDE 12.5 MG CAPSULE 30 c* 12/24/2019 Route: ORAL Sig: Take 1 capsule by mouth once daily. Medications Discontinued During This Encounter folic acid 400 mcg tablet 30 t* 5 03/11/2019 12/24/2019 Route: ORAL Sig: Take 1 tablet by mouth once daily. Disc: Reason for discontinue is not on file. FLUoxetine (PROZAC) 20 mg capsule 30 c* 5 03/11/2019 0 Route: ORAL Sig: Take 1 capsule by mouth once daily. Disc: Reason for discontinue is not on file. lisinopril (ZESTRIL, PRINIVIL) 20 mg* 30 t* 5 03/11/201912/23 Route: ORAL Sig: Take 1 tablet by mouth once daily. Disc: Reason for discontinue is not on file. thiamine (VITAMIN B-1) 100 mg tablet 30 t* 5 03/11/20192019 Route: ORAL Sig: Take 1 tablet by mouth once daily. Disc: Reason for discontinue is not on file. Hydrochlorothiazide 12.5 mg capsule 30 c* 5 04/10/20192019 Route: ORAL Sig: Take 1 capsule by mouth once daily. Disc: Reason for discontinue is not on file. Encounter Status:Closed by Lindy ARIAS PA-C on 12/24/19 cnpn on 2019[facility]12[facility]) Normal 12-10-2019 [facility] ANA M VALDEZ ([id number]) [address] [facility] Date Time Provider Department ([id number]) 12/10/19 DWIGHT PADILLA) RIANNAEVELYN During your visit today, we recorded the following informati on about you: Dwight Padilla MD 12/10/2019 12:32 PM Signed Normal cholesterol. Improved liver function. Normal magnesiu m level. TSH remains elevated, but trending toward normal. Please c all lab to add on free t4 to drawn labs. Daja Arzola LPN, MANAGER ART 12/10/2019 1:37 PM Signed Spoke with pts son gave results. He voices understanding. Spoke with Michael at main lab will add this to labs drawn yes terday Allergies As of Date: 12/10/2019 (No Known Allergies) Date Reviewed: 12/09/2019 Reviewed by: Stevie Ibarra Ma - Fully Assessed Reason for Visit: Results [95] Primary Visit Diagnosis:Elevated TSH [R79.89] Other Visit Diagnosis:Abnormal results of thyroid function s tudies [R94.6] Order(s):T4 FREE/FREE THYROX [SQFT4] Order #: [id number] FUT URE Prescriptions as of 12/10/2019 Sig: METOPROLOL TARTRATE 25 MG TAB* Take 1 tablet by mouth once d * ASPIRIN 81 MG CHEWABLE TABLET Take 1 tablet by mouth once d* HYDROCHLOROTHIAZIDE 12.5 MG C* Take 1 capsule by mouth once * PERFLUTREN LIPID MICROSPHERES* Inject 1.3 mL intravenously a * FLUOXETINE 20 MG CAPSULE Take 1 capsule by mouth once * FOLIC ACID 400 MCG TABLET Take 1 tablet by mouth once d* LISINOPRIL 20 MG TABLET Take 1 tablet by mouth once d* THIAMINE HCL (VITAMIN B1) 100* Take 1 tablet by mouth once d * Problem List As Of Date 12/10/2019 Noted Resolved Paroxysmal atrial fibrillation (HCC) [I48.0] Systolic heart failure (HCC) [I50.20] More... Alcoholic cirrhosis (HCC) [K70.30] Alcoholism (HCC) [F10.20] Hypertension [I10] Elevated TSH [R79.89] Encounter Status:Closed by DWIGHT PADILLA MD on 0 tsh on 2019-12-09 TSH Qn 4.800 0.270-4.200 uU/mL High 12-09-2019 [facility] ([id number]) Comment: Performed By: #### CBCDIF, C MP, LIPNF, MG1, TSH #### [facility] [address], [place] [address] progress on 2019-11 PROGRESS HNO ID: [id number] Normal 12-09-2019 [facility] Author: Dwight Dunaway) Valerie Ramirez ([id number]) Service: ? Author Type: Physician Type: Progress Notes Filed: 12/09/2019 9:41 AM Note Text: Chief Complaint Patient presents with: Hospital Discharge HPI Ana M Valdez is a 74 year old male who presents here today for Hospital Discharge Follow up.. Patient was admitted from 11/28 to 12/01 after presenting to the ED with left lower extremity cellulitis/injury after fall at home. Develo ped hematoma which was negative for DVT and underwent IANDD by dr. Damari polo. Treated with IV cefazolin during admission with transition to Durice f on discharge. Also developed new onset paroxysmal a fib while i npatient. Echo showed EF of 45% with mild aortic stenosis and mildly e nlarged left atrium. Did not start patient on anticoagulation due to hist ory of alcohol use and fall did not feel he was appropriate for anticoagula tion. [id number] score 3. Recommended he continue metoprolol and A SA. Recommending outpatient stress testing. Since discharge, completed Duricef this morning. Cellulitis resolved. Hematoma healing slowly. Denies purulent or bloody drainage from previous IANDD site. No further falls. Discussed need for follow up stress testing and blood work f or paroxysmal a fib. Discussed alcohol use is likely cause. Admits to tamra sanders about a 6 pack of beer per day. Refusing help with cessation. Discusse d detox, [facility] [employer], Heather Ledesma. Taking metoprolol and ASA as prescribed wit hout chest pain, palpitations, SOB, bleeding symptoms. HAS-BLED Score for Major Bleeding Risk from [email or web address].[email or web address] on All calculations should be rechecked by clinician prior t o use RESULT SUMMARY: 3 points Risk was 5.8% in one validation study (Lip 2011) and 3.72 bl eeds per 100 patient-years in another validation study (Pisters 2010). Alternatives to anticoagulation should be considered: Patien t is at high risk for major bleeding. INPUTS: Hypertension ?> 0 = No Renal disease ?> 0 = No Liver disease ?> 1 = Yes Stroke history ?> 0 = No Prior major bleeding or predisposition to bleeding ?> 0 = No Labile INR ?> 0 = No Age >65 ?> 1 = Yes Medication usage predisposing to bleeding ?> 0 = No Alcohol use ?> 1 = Yes Past medical history, appointments, medications, allergies r eviewed. Previous Medical History PAST MEDICAL HISTORY Diagnosis Date - Alcoholic cirrhosis (HCC) - Alcoholism (HCC) - Elevated TSH - Hypertension - Inguinal hernia - Paroxysmal atrial fibrillation (HCC) - PTSD (post-traumatic stress disorder) from [place] - Systolic heart failure (HCC) EF 45% 11/2019 - Umbilical hernia Previous Surgical History PAST SURGICAL HISTORY Procedure Laterality Date - PAST SURGICAL HISTORY OF shrapnel removal from wrist, elbow, back Family History FAMILY HISTORY Problem Relation Age of Onset - Hypertension Father - Hyperlipidemia Son Patient Allergies ALLERGIES No Known Allergies Current Medications Current Outpatient Medications on File Prior to Visit Medication Sig - Hydrochlorothiazide 12.5 mg capsule Take 1 capsule by mout h once daily. - perflutren lipid microspheres (DEFINITY) 1.1 mg/mL injecti on (to be provided with echo procedure) Inject 1.3 mL intravenously as directed. Administration Instructions: If no IV access, insert saline lock prior to administering contrast. Discontinue saline lock post exam. I f patient has central line or IVAD, may access for administration accordin g to line specific nursing protocol. Once exam is complete, flush line and de-access per line specific nursing protocol. Diluted IV Bolus: Dilute 1.3 ml of Definity with 8.7 ml of preservative-free saline. - FLUoxetine (PROZAC) 20 mg capsule Take 1 capsule by mouth once daily. - folic acid 400 mcg tablet Take 1 tablet by mouth once korin y. - lisinopril (ZESTRIL, PRINIVIL) 20 mg tablet Take 1 tablet by mouth once daily. - thiamine (VITAMIN B-1) 100 mg tablet Take 1 tablet by mout h once daily. No current facility-administered medications on file prior t o visit. Social History Social History Tobacco Use - Smoking status: Former Smoker Types: Cigars, Cigarettes Last attempt to quit: 11/23/1999 Years since quittin.0 - Smokeless tobacco: Never Used Substance Use Topics - Alcohol use: Yes Alcohol/week: 100.0 standard drinks Types: 40 Cans of Beer (12oz) per week Comment: 40 beers and gallon of whiskey in a week - Drug use: No Review of Symptoms REVIEW OF SYSTEMS GENERAL: No weight loss, malaise or fevers RESPIRATORY: Negative for cough, hemoptysis, wheezing, COPD, dyspnea or shortness of breath CARDIOVASCULAR: Negative for chest pain, leg swelling, hyper tension, CHF or palpitations GI: No nausea, vomiting, or diarrhea SKIN: See HPI EXAM: BP 116/88 Pulse 70 Temp 37.1 ?C (98.8 ?F) (Temporal) R lisa 12 Wt 83 kg (183 lb) SpO2 95% General Appearance: Well appearing, alert, in no acute distr ess, well-hydrated, well nourished.. Skin: Skin color, texture, turgor normal, no suspicious rash es or lesions. IANDD site healing well without surrounding erythema/celluli tis. Lungs: Lungs clear to auscultation. No wheezing, rhonchi, ra les.. Heart: Negative findings: normal rate, no murmurs, clicks, o r gallops, Positive findings: irregularly irregular rhythm. Abdomen: Normal abdominal exam, Abdomen soft, non-tender. Jesus wel sounds normal. No masses, organomegaly. Extremities: 6 x 6 cm hematoma on left LE. Non tender. No br uising. Health Maintenance List ANNUAL PCP TEAM CHRONIC DISEASE VISIT due on 02/23/1962 BP CONTROLLED (<130/80) due on 02/23/1962 DTAP,TDAP,TD(1 - Tdap) due on 02/23/1963 LIPID SCREEN due on 02/23/1979 COLORECTAL CANCER SCREENING,SEE MODIFIER due on 02/23/1994 SHINGRIX VACCINE(1 of 2) due on 02/23/1994 ADVANCE DIRECTIVE DISCUSSION due on 02/23/2009 HEPATITIS B(2 of 3 - Risk 3-dose series) due on 05/08/2019 HEPATITIS A(3 of 3 - Hep A Twinrix risk 3-dose series) due o n 09/09/2019 INFLUENZA(Season Ended) due on 04/10/2020 DIABETES SCREEN due on 01/26/2020 HEPATITIS C SCREENING Completed PNEUMOVAX AGE 65 AND OVER WITH 5YR LOOKBACK Completed ASSESSMENT/PLAN: 1. Cellulitis of skin - ICD9: 682.9, ICD10: L03.90 (primary diagnosis) Resolved. Call with recurrent erythema, drainage, fever, or pain. 2. Hematoma - ICD9: 924.9, ICD10: T14.8XXA Healing slowly. Advised ice and leg elevation. 3. Paroxysmal atrial fibrillation (HCC) - ICD9: 427.31, ICD1 0: I48.0 Continue beta richie and ASA. Obtain pharm stress test due to COVID restrictions on exercise stress test. Refer to cardiology to follow up on EF 45%. - NM CARDIAC PERF STRESS/PHARM - TSH BLD - MAGNESIUM BLD - CBC + DIFF - COMP METABOLIC PANEL - LIPID PANEL, NONFASTING - CONSULT TO CARDIOLOGY - ASPIRIN 81 MG CHEWABLE TABLET 4. Systolic heart failure, unspecified HF chronicity (HCC) - ICD9: 428.20, ICD10: I50.20 - NM CARDIAC PERF STRESS/PHARM - CONSULT TO CARDIOLOGY 5. Alcoholic cirrhosis of liver without ascites (HCC) - ICD9 : 571.2, ICD10: K70.30 Advised cessation. Patient refusing assistance. 6. Alcoholism (HCC) - ICD9: 303.90, ICD10: F10.20 7. Essential hypertension - ICD9: 401.9, ICD10: I10 - good control - Continue current medication(s) - Encouraged dietary sodium restriction/DASH diet - Recommended regular aerobic exercise. - Reviewed risks of HTN and principles of treatment - Goal of BP <130/80 8. Elevated TSH - ICD9: 794.5, ICD10: R79.89 9. Hospital discharge follow-up - ICD9: V67.59, ICD10: Z09 Doing well s/p discharge. Continue current regimen. F/u in 3 months. 10. Heart disease - ICD9: 429.9, ICD10: I51.9 - NM CARDIAC PERF STRESS/PHARM 11. Left ventricular failure, unspecified (HCC) - ICD9: 428. 1, ICD10: I50.1 - NM CARDIAC PERF STRESS/PHARM I spent 25 minutes in the visit, with more than 50% of the [facility] bidg-tz-slms time of the visit in counseling / coordination of care. Dwight Padilla MD magnesium on -15 Magnesium [Mass/Vol] 1.9 1.7-2.3 mg/dL Normal 12-08- 0 [facility] ([id number]) Comment: Performed By: #### CBCDIF, C MP, LIPNF, MG1, TSH #### [facility] [address] [place], [place] [address] lipid panel, nonfast on 2019-12-09 Cholesterol [Mass/Vol] 119 <200 mg/dL Normal 020 [facility] (94204) Comment: Result Comment: <200 mg/dL, Desirable 200-239 mg/dL, Borderline hi gh >239 mg/dL, High Performed By: #### CBCDIF, C MP, LIPNF, MG1, TSH #### [facility] [address] [place], [place] [address] Cholesterol in 1.10 <2.54 mg/dL Normal 12-09-[address] [facility] LDL/Cholesterol in HDL [Mass [place] (09201) ratio] Comment: Result Comment: Reference: 1. National Cholesterol Educ ation Program ATP III Guideline At-A-Glance Quick Desk Reference: National Heart, Lung, and Blood [place]. National Institutes of Health. 2001: NIH Publication No. 01-3305. 2. An International Atherosc lerosis Society position paper: global recommendations for the management of dyslipidemia: executive summary, Atherosclerosis. 2014: 232(2):410-413. Performed By: #### CBCDIF, C MP, LIPNF, MG1, TSH #### [facility] [address] [place], [place] [address] Cholesterol.total/Cholesterol in 2.33 <5.10 mg/dL Normal 12-09-2019 [place] HDL [Mass ratio] Cli lindsey [place] ([address]) Comment: Performed By: #### CBCDIF, C MP, LIPNF, MG1, TSH #### [facility] [address] [place], [place] [address] HDL Cholesterol, NF 51 >39 mg/dL Normal 12-09-2019 [facility] ([id number]) Comment: Result Comment: 40-59 mg/dL, Acceptable >59 mg/dL, High: Negative ri sk factor for coronary heart disease <40 mg/dL, Low: Positive ris k factor for coronary heart disease Performed By: #### CBCDIF, C MP, LIPNF, MG1, TSH #### [facility] [address] [place], [place] [address] LDL Cholesterol, NF 56 <100 mg/dL Normal 12-09-2019 [facility] (12115) Comment: Result Comment: <100 mg/dL, Optimal 100-129 mg/dL, Near optimal/ above optimal 130-159 mg/dL, Borderline hi gh 160-189 mg/dL, High >189 mg/dL, Very high Secondary prevention optimal LDL Cholesterol levels are recommended to be < 70 mg/dL Performed By: #### CBCDIF, C MP, LIPNF, MG1, TSH #### [facility] [place] [address] Non HDL Chol, NF 68 <130 mg/dL Normal 12-09-2019 [facility] (90309) Comment: Result Comment: <130 mg/dL, Optimal 130-159 mg/dL, Near optimal/ above optimal 160-189 mg/dL, Borderline hi gh 190-219 mg/dL, High >219 mg/dL, Very high Secondary prevention optimal non HDL Cholesterol levels are recommended to be < 100 mg/dL Performed By: #### CBCDIF, C MP, LIPNF, MG1, TSH #### [facility] [address] [place] [address] Triglycerides, NF 60 <150 mg/dL Normal 12-09-2019 [facility] (79168) Comment: Result Comment: <150 mg/dL, Normal 150-199 mg/dL, Borderline hi gh 200-499 mg/dL, High >499 mg/dL, Very high Performed By: #### CBCDIF, C MP, LIPNF, MG1, TSH #### [facility] [address] [place] [address] VLDL Cholesterol, NF 12 <30 mg/dL Normal 0 [facility] (37768) Comment: Performed By: #### CBCDIF, C MP, LIPNF, MG1, TSH #### [facility] [address] [place], [place] [address] free t4 on Free T4 [Mass/Vol] 1.1 0.9-1.7 ng/dL Normal 12-09-2019 [facility] (41711) Comment: Performed By: #### FT4 ####C [facility] [address] [place], [place] [phone] comp metabolic panel on 2019-12-09 Albumin [Mass/Vol] 3.7 3.9-4.9 g/dL Low 12-09-2019 [facility] (45531) Comment: Performed By: #### CBCDIF, C MP, LIPNF, MG1, TSH #### [facility] [address] [place], [place] [address] ALP [Catalytic activity/Vol] 113 38-113 U/L Normal 0 12-09-2019 [facility] (91112) Comment: Performed By: #### CBCDIF, C MP, LIPNF, MG1, TSH #### [facility] [address] [place], [place] [address] ALT [Catalytic activity/Vol] 25 10-54 U/L Normal 0 12-09-2019 [facility] (75942) Comment: Performed By: #### CBCDIF, C MP, LIPNF, MG1, TSH #### [facility] [address] [place], [place] [address] Anion gap [Moles/Vol] 13 9-18 mmol/L Normal 12-09-19 [facility] (19168) Comment: Performed By: #### CBCDIF, C MP, LIPNF, MG1, TSH #### [facility] [address] [place], [place] [address] AST [Catalytic activity/Vol] 50 14-40 U/L High 0 12-09-2019 [facility] (45589) Comment: Performed By: #### CBCDIF, C MP, LIPNF, MG1, TSH #### [facility] [address] [place], [place] [address] Bilirubin [Mass/Vol] 2.0 0.2-1.3 mg/dL High 0 [facility] (93758) Comment: Performed By: #### CBCDIF, C MP, LIPNF, MG1, TSH #### [facility] [address] [place], [place] [address] Calcium [Mass/Vol] 9.1 8.5-10.2 mg/dL Normal 12-09-2019 [facility] (29145) Comment: Performed By: #### CBCDIF, C MP, LIPNF, MG1, TSH #### [facility] [address] [place] [address] Chloride [Moles/Vol] 98 97-105 mmol/L Normal 0 [facility] (56476) Comment: Performed By: #### CBCDIF, C MP, LIPNF, MG1, TSH #### [address] [address] CO2 [Moles/Vol] 25 22-30 mmol/L Normal 12-09-2019 [facility] (45212) Comment: Performed By: #### CBCDIF, C MP, LIPNF, MG1, TSH #### [address] [address] Creatinine [Mass/Vol] 0.70 0.73-1.22 mg/dL Low 12-09-19 20 [facility] (47779) Comment: Performed By: #### CBCDIF, C MP, LIPNF, MG1, TSH #### [place] [address] [place], [place] [address] eGFR- Amer. >60 Normal 12-09-2019 [facility] (46942) Comment: Performed By: #### CBCDIF, C MP, LIPNF, MG1, TSH #### [place] [address] [place], [place] [address] GFR/1.73 sq M predicted >60 mL/min/{1.73_m2} Normal 12-09-2019 [facility] among non-blacks MDRD [place] (04897) (S/P/Bld) [Vol rate/Area] Comment: Result Comment: eGFR (Estima larisa GFR) Units of measure: mL/min/1.73 meters squared eGFR is derived from the ree xpressed MDRD Study equation using the following parameters: serum creatinine, age, gender and race. The creatinine assay has been calibrated to be traceable to IDMS. An eGFR <60 mL/min/1.73m2 fo r >3 months is consistent with chronic kidney disease. Refer to KDOQI guidelines for clinical interpretation. In patients with unstable re nal function, e.g. those with acute kidney injury, the eGFR may not accurately reflect actual GFR. Performed By: #### Yuri TAYLOR MP, SEGUNDO, MG1, TSH #### [facility] [address] [place], [place] [address] Glucose [Mass/Vol] 86 74-99 mg/dL Normal 12-09-2019 [facility] (95585) Comment: Result Comment: The [place] Diabetes Association (ADA) provides guidance for cutoff values for fasting glucose and random glucose. The ADA defines fasting as no caloric intake for at least 8 hours. Fas ting plasma glucose results between 100 to 125 mg/dL indicate increased risk for diabetes (prediabetes). Fasting plasma glucose resul ts greater than or equal to 126 mg/dL meet the criteria for diagnosis of diabetes. In the absence of unequivocal hyperglycemia, results should be confirmed by repeat testing. In a patient with classic s ymptoms of hyperglycemia or hyperglycemic crisis, random plasma glucose results greater than or equal to 200 mg/dL meet the criteria for diagnosis of diabetes. Reference: Standards of [facility] Care in Diabetes 2016, [place] Diabetes Association. Diabetes Care. 2016.39(Suppl 1). Performed By: #### Yuri TAYLOR MP, LIPNF, MG1, TSH #### [facility] [address] [place], [place] [address] Potassium [Moles/Vol] 4.2 3.7-5.1 mmol/L Normal 12-09-19 [facility] (34040) Comment: Performed By: #### CBCDIF, C MP, LIPNF, MG1, TSH #### [place] [address] Protein [Mass/Vol] 6.8 6.3-8.0 g/dL Normal 12-09-2019 [facility] (94606) Comment: Performed By: #### CBCDIF, C MP, LIPNF, MG1, TSH #### [place] [address] Sodium [Moles/Vol] 136 136-144 mmol/L Normal 12-09-2019 [facility] (56180) Comment: Performed By: #### CBCDIF, C MP, LIPNF, MG1, TSH #### [place] [address] Urea nitrogen [Mass/Vol] 5 9-24 mg/dL Low 12-08 [facility] (86750) Comment: Performed By: #### CBCDIF, C MP, LIPNF, MG1, TSH #### [address] [address] cbc and differential on 2019-12-09 Abs Baso 0.14 <0.11 k/uL High 12-09-2019 [facility] (39229) Comment: Performed By: #### CBCDIF, C MP, LIPNF, MG1, TSH #### [address] [address] Abs Trimble 0.94 <0.87 k/uL High 12-09-2019 [facility] (58221) Comment: Performed By: #### CBCDIF, C MP, LIPNF, MG1, TSH #### [address] [address] Abs Neut 4.70 1.45-7.50 k/uL Normal 12-09-2019 [facility] (39272) Comment: Performed By: #### CBCDIF, C MP, LIPNF, MG1, TSH #### [facility] [address] [place], [place] [address] Absolute nRBC <0.01 <0.01 Normal 12-09-2019 [facility] (41366) Comment: Performed By: #### CBCDIF, C MP, LIPNF, MG1, TSH #### [facility] [address] [place] [address] Basophils/100 WBC (Bld) 1.8 % Normal 2019 [facility] (13061) Comment: Performed By: #### CBCDIF, C MP, LIPNF, MG1, TSH #### [facility] [address] [place] [address] DTYPE Auto Diff Normal 12-09-2019 [facility] (26859) Comment: Performed By: #### CBCDIF, C MP, LIPNF, MG1, TSH #### [facility] [address] [place], [place] [address] Eosinophils (Bld) [#/Vol] 0.18 <0.46 k/uL Normal 11-24 [facility] [facility] ([id number]) Comment: Performed By: #### CBCDIF, C MP, LIPNF, MG1, TSH #### [facility] [address], [place] [address] Eosinophils/100 WBC (Bld) 2.3 % Normal 11-24 [facility] ([id number]) Comment: Performed By: #### CBCDIF, C MP, LIPNF, MG1, TSH #### [facility] [address], [place] [address] Erythrocyte distribution 14.4 11.5-15.0 % Normal 12-08 [facility] width (RBC) [Ratio] [place] ([id number]) Comment: Performed By: #### CBCDIF, C MP, LIPNF, MG1, TSH #### [facility] [address], [place] [address] Hematocrit (Bld) [Volume 52.2 39.0-51.0 % High 12-08 [facility] ([id number]) Comment: Performed By: #### CBCDIF, C MP, LIPNF, MG1, TSH #### [facility], [place] [address] Hemoglobin (Bld) 16.9 13.0-17.0 g/dL Normal 12-09-2019 [facility] [Mass/Vol] [place] ([id number]) Comment: Performed By: #### CBCDIF, C MP, LIPNF, MG1, TSH #### [address] [address] Lymphocytes (Bld) [#/Vol] 1.74 1.00-4.00 k/uL Normal 11-24 [facility] ([id number]) Comment: Performed By: #### CBCDIF, C MP, LIPNF, MG1, TSH #### [address] [address] Lymphocytes/100 WBC (Bld) 22.6 % Normal 11-24 [facility] ([id number]) Comment: Performed By: #### CBCDIF, C MP, LIPNF, MG1, TSH #### [address] [place], [place] [address] MCH (RBC) [Entitic mass] 33.5 26.0-34.0 pG Normal 12-08 [facility] ([id number]) Comment: Performed By: #### CBCDIF, C MP, LIPNF, MG1, TSH #### [facility], [place] [address] MCHC (RBC) [Mass/Vol] 32.4 30.5-36.0 g/dL Normal 12-09-19 [facility] ([id number]) Comment: Performed By: #### CBCDIF, C MP, LIPNF, MG1, TSH #### [facility] [address] [place], [place] [address] MCV (RBC) [Entitic vol] 103.4 80.0-100.0 fL High 12-08 [facility] ([id number]) Comment: Performed By: #### CBCDIF, C MP, LIPNF, MG1, TSH #### [address] [place], [place] [address] Monocytes/100 WBC (Bld) 12.2 % Normal 2019 [facility] ([id number]) Comment: Performed By: #### CBCDIF, C MP, LIPNF, MG1, TSH #### [address] [place], [place] [address] Neutrophils/100 WBC (Bld) 61.1 % Normal 11-24 [facility] ([id number]) Comment: Performed By: #### CBCDIF, C MP, LIPNF, MG1, TSH #### [address] [place], [place] [address] NRBCs 0.0 0 /100 WBC Normal 12-09-2019 [facility] ([id number]) Comment: Performed By: #### CBCDIF, C MP, LIPNF, MG1, TSH #### [address] [place], [place] [address] Platelet mean volume 10.4 9.0-12.7 fL Normal 0 [facility] (Bld) [Entitic vol] [place] ([id number]) Comment: Performed By: #### CBCDIF, C MP, LIPNF, MG1, TSH #### [facility] [address] [place], [place] [address] Platelets (Bld) [#/Vol] 174 150-400 k/uL Normal 2019 [facility] ([id number]) Comment: Performed By: #### CBCDIF, C MP, LIPNF, MG1, TSH #### [facility] [address] [place], [place] [address] RBC (Bld) [#/Vol] 5.05 4.20-6.00 m/uL Normal 12-09-2019 [facility] ([id number]) Comment: Performed By: #### CBCDIF, C MP, LIPNF, MG1, TSH #### [facility] [address] [place], [place] [address] WBC (Bld) [#/Vol] 7.70 3.70-11.00 k/uL Normal 12-09-2019 [facility] ([id number]) Comment: Performed By: #### CBCDIF, C MP, LIPNF, MG1, TSH #### [facility] [address] [place] [id number] cnpn on 2019-12-02 SMITHAN Telephone (USMANWS) Normal 12-02-2019 [place] [facility] ANA M VALDEZ ([id number]) [address] [facility] Date Time Provider Department () 12/02/19 RIMMA LAMBERT (SMITHA) [place] During your visit today, we recorded the following informati on about you: Rimma Lambert APRN.CNP 12/02/2019 11:55 AM Signed [facility] Needs to make follow-up appointment. Please assist in scheduling EDITH Chong LPN, JOEL 12/02/2019 1:41 PM Signed He has a hospital f/up sched gail Padilla on Monday hospital called and made. Rimma Lambert APRN.CNP 12/02/2019 2:01 PM Signed Good to hear. Thanks, Rimma Lambert APRN.SMITHA Allergies As of Date: 12/02/2019 (No Known Allergies) Date Reviewed: 03/09/2017 Reviewed by: Елена Brewer Ma - Fully Assessed Reason for Visit: Appointment [186] Prescriptions as of 12/02/2019 Sig: HYDROCHLOROTHIAZIDE 12.5 MG C* Take 1 capsule by mouth once * PERFLUTREN LIPID MICROSPHERES* Inject 1.3 mL intravenously a * FLUOXETINE 20 MG CAPSULE Take 1 capsule by mouth once * FOLIC ACID 400 MCG TABLET Take 1 tablet by mouth once d* LISINOPRIL 20 MG TABLET Take 1 tablet by mouth once d* THIAMINE HCL (VITAMIN B1) 100* Take 1 tablet by mouth once d * Problem List As Of Date: 12/02/2019 (None) Encounter Status:Closed by DAJA ARZOLA LPN on 12/02/19 progress on 2019-03 PROGRESS HNO ID: [id number] Normal 04-10-2019 [facility] Author: Dwight Mcallister () Valerie [place] ([id number]) Service: ? Author Type: Physician Type: Progress Notes Filed: 04/10/2019 4:18 PM Note Text: Chief Complaint Patient presents with: Medication Follow-up HPI Ana M Valdez is a 74 year old male who presents here today for Above Complaints.. HTN: Mr. Valdez indicates that he is feeling well and denies any symptoms referable to elevated blood pressure. Specifically denies he adache, chest pain, palpitations, dyspnea and peripheral edema. Patient de nies any side effects of his medication(s) and is compliant with their reg imen. Has not been taking HCTZ, was not refilled last month. He does not c heck BP's generally. Ana M likes to exercise by golfing. He watches his diet for sodium, low fat and low cholesterol generally not very much. Admits to eating significant amount of sea salt in diet. Last 3 Encounter BP Readings: Date: BP: 04/10/2019 168/98 03/09/2017 160/92 01/25/2017 146/100 History of alcoholic cirrhosis. Still drinking 6 beers per d ay without other hard liquor. Has not followed up with hepatology and d oes not want help with cessation. Gill troncoso when he last went more t matias 1 day without drinking. Discussed DTs and risks of cirrhosis. Due for repeat labs as well as immunizations for Hep B, Hep A, pneumovax. Past medical history, appointments, medications, allergies r eviewed. Previous Medical History PAST MEDICAL HISTORY Diagnosis Date - Alcoholic cirrhosis (HCC) - Alcoholism (HCC) - Elevated TSH - Hypertension - Inguinal hernia - PTSD (post-traumatic stress disorder) from [place] - Umbilical hernia Previous Surgical History PAST SURGICAL HISTORY Procedure Laterality Date - PAST SURGICAL HISTORY OF shrapnel removal from wrist, elbow, back Family History FAMILY HISTORY Problem Relation Age of Onset - Hypertension Father - Hyperlipidemia Son Patient Allergies ALLERGIES No Known Allergies Current Medications Current Outpatient Medications on File Prior to Visit: FLUoxetine (PROZAC) 20 mg capsule Take 1 capsule by mouth on ce daily. folic acid 400 mcg tablet Take 1 tablet by mouth once daily. lisinopril (ZESTRIL, PRINIVIL) 20 mg tablet Take 1 tablet by mouth once daily. thiamine (VITAMIN B-1) 100 mg tablet Take 1 tablet by mouth once daily. Hydrochlorothiazide 12.5 mg capsule Take 1 capsule by mouth once daily. No current facility-administered medications on file prior t o visit. Social History Social History Socioeconomic History Marital status: Spouse name: Not on file Number of children: Not on file Years of education: Not on file Highest education level: Not on file Occupational History Not on file Social Needs Financial resource strain: Not on file Food insecurity: Worry: Not on file Inability: Not on file Transportation needs: Medical: Not on file Non-medical: Not on file Tobacco Use Smoking status: Former Smoker Types: Cigars, Cigarettes Quit date: 11/23/1999 Years since quittin.3 Smokeless tobacco: Never Used Substance and Sexual Activity Alcohol use: Yes Alcohol/week: 100.0 standard drinks Types: 40 Cans of Beer (12oz) per week Comment: 40 beers and gallon of whiskey in a week Drug use: No Sexual activity: Not on file Lifestyle Physical activity: Days per week: Not on file Minutes per session: Not on file Stress: Not on file Relationships Social connections: Talks on phone: Not on file Gets together: Not on file Attends spiritism service: Not on file Active member of club or organization: Not on file Attends meetings of clubs or organizations: Not on file Relationship status: Not on file Intimate partner violence: Fear of current or ex partner: Not on file Emotionally abused: Not on file Physically abused: Not on file Forced sexual activity: Not on file Other Topics Concerns: Not on file Social History Narrative Not on file Review of Symptoms REVIEW OF SYSTEMS GENERAL: No weight loss, malaise or fevers RESPIRATORY: Negative for cough, hemoptysis, wheezing, COPD, dyspnea or shortness of breath CARDIOVASCULAR: Negative for chest pain, leg swelling, hyper tension, CHF or palpitations GI: No nausea, vomiting, or diarrhea SKIN: Negative for lesions, rash, and itching EXAM: BP 168/98 Pulse 104 Resp 18 Wt 84.4 kg (186 lb) General Appearance: Well appearing, alert, in no acute distr ess, well-hydrated, well nourished.. Skin: Skin color, texture, turgor normal, no suspicious rash es or lesions. Lungs: lungs clear to auscultation. No wheezing, rhonchi, ra les. Heart: RRR without murmur, gallop, or rubs. No ectopy. Abdomen: Normal abdominal exam, Abdomen soft, non-tender. Jesus wel sounds normal. Hepatomegaly. Extremities: Clubbing of fingers bilaterally. Health Maintenance List ANNUAL PCP TEAM CHRONIC DISEASE VISIT due on 02/23/1962 BP CONTROLLED (<130/80) due on 02/23/1962 DTAP,TDAP,TD(1 - Tdap) due on 02/23/1963 HEPATITIS B(1 of 3 - Risk 3-dose series) due on 02/23/1963 LIPID SCREEN due on 02/23/1979 COLORECTAL CANCER SCREENING,SEE MODIFIER due on 02/23/1994 PNEUMOVAX AGE 65 AND OVER WITH 5YR LOOKBACK(1) due on 2008 HEPATITIS A(2 of 2 - Risk 2-dose series) due on 09/06/2017 INFLUENZA(1) due on 04/10/2020 DIABETES SCREEN due on 01/26/2020 ADULT PREVNAR-13 Completed Data reviewed Component Latest Ref Rng AND Units 01/25/2017 Protein, Total 6.3 - 8.0 g/dL 6.9 Albumin 3.9 - 4.9 g/dL 3.2 (L) Calcium 8.5 - 10.2 mg/dL 9.1 Bilirubin, Total 0.2 - 1.3 mg/dL 2.7 (H) Alkaline Phosphatase 36 - 108 U/L 192 (H) AST 14 - 40 U/L 167 (H) Glucose 74 - 99 mg/dL 102 (H) BUN 9 - 24 mg/dL 4 (L) Creatinine 0.73 - 1.22 mg/dL 0.61 (L) Sodium 136 - 144 mmol/L 136 Potassium 3.7 - 5.1 mmol/L 3.5 (L) Chloride 97 - 105 mmol/L 95 (L) CO2 22 - 30 mmol/L 26 Anion Gap 9 - 18 mmol/L 15 ALT 10 - 54 U/L 70 (H) eGFR- >60 eGFR-All Other Races . >60 Hep B Core Ab, Total Negative Negative Hep C Antibody IA Negative Negative Hep B Surface Ag Negative Negative Hep B Surface Ab, Qual Negative Negative TSH 0.400 - 5.500 uU/mL 5.460 Free T4 0.9 - 1.7 ng/dL 1.2 Magnesium 1.7 - 2.3 mg/dL 1.7 ASSESSMENT/PLAN: 1. Alcoholic cirrhosis of liver without ascites (HCC) - ICD9 : 571.2, ICD10: K70.30 (primary diagnosis) Refusing help with cessation. Discussed risks of continued d rinking with cirrhosis including cancer and . Recommended cessation. - US ABD RT UPPER QUADRANT - LIPID PANEL, NONFASTING - ECHO - PERFLUTREN LIPID MICROSPHERES 1.1 MG/ML INTRAVENOUS SUSPEN LENNOX 2. Hypertension, essential - ICD9: 401.9, ICD10: I10 - poor control - Continue current medication(s) - Encouraged dietary sodium restriction/DASH diet - Recommended regular aerobic exercise. - Reviewed risks of HTN and principles of treatment - Goal of BP <140/90 - HYDROCHLOROTHIAZIDE 12.5 MG CAPSULE - CBC + DIFF - COMP METABOLIC PANEL - LIPID PANEL, NONFASTING - ECHO - PERFLUTREN LIPID MICROSPHERES 1.1 MG/ML INTRAVENOUS SUSPEN LENNOX 3. Clubbing of fingers - ICD9: 781.5, ICD10: R68.3 Obtain echo and screen for cancer with FOBT and US liver wit h history of cirrhosis. If negative, will need additional imaging of ches t and abdomen. - US ABD RT UPPER QUADRANT - ECHO - PERFLUTREN LIPID MICROSPHERES 1.1 MG/ML INTRAVENOUS SUSPEN LENNOX 4. Wheezing - ICD9: 786.07, ICD10: R06.2 - ECHO 5. Elevated TSH - ICD9: 794.5, ICD10: R79.89 Recheck TSH. - TSH BLD 6. Encounter for screening colonoscopy - ICD9: V76.51, ICD10 : Z12.11 - FECAL OCCULT BLOOD TEST 7. Need for vaccination - ICD9: V05.9, ICD10: Z23 - HEPATITIS A VACCINE ADULT IM - HEPATITIS B VACC ADULT DOSAGE (3 DOSE SCHED) IM USE - PNEUMOCOCCAL IMMUNIZATION PPSV 23 Dwight Padilla MD cnov on 2019-04-10 CNOV Office Visit (FAMPWS) Normal 04-10-20 19 [facility] [facility] ANA M VALDEZ ([id number]) [address] [facility] Date Time Provider Department ([id number]) 04/10/19 2:20 PM DWIGHT PADILLA) FAMPWS During your visit today, we recorded the following informati on about you: Pulse Respiration Blood pressure Weight 104/minute 18/minute 168/98 84.4 kg Dwight Padilla MD 04/10/2019 4:18 PM Signed Chief Complaint Patient presents with: Medication Follow-up HPI Ana M Valdez is a 74 year old male who presents here today for Above Complaints.. HTN: Mr. Valdez indicates that he is feeling well and denies any symptoms referable to elevated blood pressure. Specifically denies headache, chest pain, palpitations, dyspnea and peripheral emiliano ma. Patient denies any side effects of his medication(s) and is compliant with their regimen. Has n ot been taking HCTZ, was not refilled last month. He does not check BP's ge nerally. Ana M likes to exercise by golfing. He watches his t for sodium, low fat and low cholesterol generally not ve ry much. Admits to eating significant amount of sea salt in diet. Last 3 Encounter BP Readings: Date: BP: 04/10/2019 168/98 03/09/2017 160/92 01/25/2017 146/100 History of alcoholic cirrhosis. Still drinking 6 beers per day without other hard liquor. Has not followed up with hepatology and d oes not want help with cessation. Cant rememeber when he last went more than 1 day without drinking. Discussed DTs and risks of cirrhosis. Due for repeat labs as well as immunizations for Hep B, Hep A, pneumovax. Past medical history, appointments, medications, allergies r kandicewed. Previous Medical History PAST MEDICAL HISTORY Diagnosis Date - Alcoholic cirrhosis (HCC) - Alcoholism (HCC) - Elevated TSH - Hypertension - Inguinal hernia - PTSD (post-traumatic stress disorder) from [place] - Umbilical hernia Previous Surgical History PAST SURGICAL HISTORY Procedure Laterality Date - PAST SURGICAL HISTORY OF shrapnel removal from wrist, elbow, back Family History FAMILY HISTORY Problem Relation Age of Onset - Hypertension Father - Hyperlipidemia Son Patient Allergies ALLERGIES No Known Allergies Current Medications Current Outpatient Medications on File Prior to Visit: FLUoxetine (PROZAC) 20 mg capsule Take 1 capsule by mouth on ce daily. folic acid 400 mcg tablet Take 1 tablet by mouth once daily. lisinopril (ZESTRIL, PRINIVIL) 20 mg tab let Take 1 tablet by mouth once daily. thiamine (VITAMIN B-1) 100 mg tablet Take 1 tablet by mouth once daily. Hydrochlorothiazide 12.5 mg capsule Take 1 capsule by mouth once daily. No current facility-administered medications on file prior t o visit. Social History Social History Socioeconomic History Marital status: Spouse name: Not on file Number of children: Not on file Years of education: Not on file Highest education level: Not on file Occupational History Not on file Social Needs Financial resource strain: Not on file Food insecurity: Worry: Not on file Inability: Not on file Transportation needs: Medical: Not on file Non-medical: Not on file Tobacco Use Smoking status: Former Smoker Types: Cigars, Cigarettes Quit date: 11/23/1999 Years since quittin.3 Smokeless tobacco: Never Used Substance and Sexual Activity Alcohol use: Yes Alcohol/week: 100.0 standard drinks Types: 40 Cans of Beer (12oz) per week Comment: 40 beers and gallon of whiskey in a week Drug use: No Sexual activity: Not on file Lifestyle Physical activity: Days per week: Not on file Minutes per session: Not on file Stress: Not on file Relationships Social connections: Talks on phone: Not on file Gets together: Not on file Attends spiritism service: Not on file Active member of club or organization: Not on file Attends meetings of clubs or organizations: Not on file Relationship status: Not on file Intimate partner violence: Fear of current or ex partner: Not on file Emotionally abused: Not on file Physically abused: Not on file Forced sexual activity: Not on file Other Topics Concerns: Not on file Social History Narrative Not on file Review of Symptoms REVIEW OF SYSTEMS GENERAL: No weight loss, malaise or fevers RESPIRATORY: Negative for cough, hemoptysis, wheezing, COPD, dyspnea or shortness of breath CARDIOVASCULAR: Negative for chest pain, leg swelling, hyp ertension, CHF or palpitations GI: No nausea, vomiting, or diarrhea SKIN: Negative for lesions, rash, and itching EXAM: BP 168/98 Pulse 104 Resp 18 Wt 84.4 kg (186 lb) General Appearance: Well kendra earing, alert, in no acute distress, well-hydrated, well nourished.. Skin: Skin color, texture, turgor normal, no suspicious rash es or lesions. Lungs: lungs clear to auscultation. No wheezing, rhonchi, ra les. Heart: RRR without murmur, gallop, or rubs. No ectopy. Abdomen: Normal abdominal exam, Abdomen soft, non-tender. Bowel sounds normal. Hepatomegaly. Extremities: Clubbing of fingers bilaterally. Health Maintenance List ANNUAL PCP TEAM CHRONIC DISEASE VISIT due on 02/23/1962 BP CONTROLLED (<130/80) due on 02/23/1962 DTAP,TDAP,TD(1 - Tdap) due on 02/23/1963 HEPATITIS B(1 of 3 - Risk 3-dose series) due on 02/23/1963 LIPID SCREEN due on 02/23/1979 COLORECTAL CANCER SCREENING,SEE MODIFIER due on 02/23/1994 PNEUMOVAX AGE 65 AND OVER WITH 5YR LOOKBACK(1) due on 2008 HEPATITIS A(2 of 2 - Risk 2-dose series) due on 09/06/2017 INFLUENZA(1) due on 04/10/2020 DIABETES SCREEN due on 01/26/2020 ADULT PREVNAR-13 Completed Data reviewed Component Latest Ref Rng AND Units 01/25/2017 Protein, Total 6.3 - 8.0 g/dL 6.9 Albumin 3.9 - 4.9 g/dL 3.2 (L) Calcium 8.5 - 10.2 mg/dL 9.1 Bilirubin, Total 0.2 - 1.3 mg/dL 2.7 (H) Alkaline Phosphatase 36 - 108 U/L 192 (H) AST 14 - 40 U/L 167 (H) Glucose 74 - 99 mg/dL 102 (H) BUN 9 - 24 mg/dL 4 (L) Creatinine 0.73 - 1.22 mg/dL 0.61 (L) Sodium 136 - 144 mmol/L 136 Potassium 3.7 - 5.1 mmol/L 3.5 (L) Chloride 97 - 105 mmol/L 95 (L) CO2 22 - 30 mmol/L 26 Anion Gap 9 - 18 mmol/L 15 ALT 10 - 54 U/L 70 (H) eGFR- >60 eGFR-All Other Races . >60 Hep B Core Ab, Total Negative Negative Hep C Antibody IA Negative Negative Hep B Surface Ag Negative Negative Hep B Surface Ab, Qual Negative Negative TSH 0.400 - 5.500 uU/mL 5.460 Free T4 0.9 - 1.7 ng/dL 1.2 Magnesium 1.7 - 2.3 mg/dL 1.7 ASSESSMENT/PLAN: 1. Alcoholic cirrhosis of liver without ascites (HCC) - IC D9: 571.2, ICD10: K70.30 (primary diagnosis) Refusing help with cessation. Discussed risks of continued d rinking with cirrhosis including cancer and . Recommended cessation. - US ABD RT UPPER QUADRANT - LIPID PANEL, NONFASTING - ECHO - PERFLUTREN LIPID MICROSPHERES 1.1 MG/ML INTRAVENOUS SUSPEN LENNOX 2. Hypertension, essential - ICD9: 401.9, ICD10: I10 - poor control - Continue current medication(s) - Encouraged dietary sodium restriction/DASH diet - Recommended regular aerobic exercise. - Reviewed risks of HTN and principles of treatment - Goal of BP <140/90 - HYDROCHLOROTHIAZIDE 12.5 MG CAPSULE - CBC + DIFF - COMP METABOLIC PANEL - LIPID PANEL, NONFASTING - ECHO - PERFLUTREN LIPID MICROSPHERES 1.1 MG/ML INTRAVENOUS SUSPEN LENNOX 3. Clubbing of fingers - ICD9: 781.5, ICD10: R68.3 Obtain echo and screen for cancer with FOBT and US liver wit h history of cirrhosis. If negative, will need additional imaging of ches t and abdomen. - US ABD RT UPPER QUADRANT - ECHO - PERFLUTREN LIPID MICROSPHERES 1.1 MG/ML INTRAVENOUS SUSPEN LENNOX 4. Wheezing - ICD9: 786.07, ICD10: R06.2 - ECHO 5. Elevated TSH - ICD9: 794.5, ICD10: R79.89 Recheck TSH. - TSH BLD 6. Encounter for screening colonoscopy - ICD9: V76.51, ICD10 : Z12.11 - FECAL OCCULT BLOOD TEST 7. Need for vaccination - ICD9: V05.9, ICD10: Z23 - HEPATITIS A VACCINE ADULT IM - HEPATITIS B VACC ADULT DOSAGE (3 DOSE SCHED) IM USE - PNEUMOCOCCAL IMMUNIZATION PPSV 23 Dwight Padilla MD Referring Provider: SELF [200] Allergies As of Date: 04/10/2019 (No Known Allergies) Date Reviewed: 03/09/2017 Reviewed by: Елена Brewer Ma - Fully Assessed Reason for Visit: Medication Follow-up [270] Primary Visit Diagnosis:Alcoholic cirrhosis of liver without ascites (HCC) [K70.30] Other Visit Diagnoses:Hypertension, essential [I10] Clubbing of fingers [R68.3] Wheezing [R06.2] Elevated TSH [R79.89] Encounter for screening colonoscopy [Z12.11] Need for vaccination [Z23] Order(s):Hydrochlorothiazide 12.5 mg capsuleTake 1 capsule b y mouth once daily.Disp: 30 capsuleRfl: 5 HEPATITIS A VACCINE ADULT IM [[id number]] Order #: [id number] HEPATITIS B VACC ADULT DOSAGE (3 DOSE SCHED) IM USE [10866ML D] Order #: [id number] PNEUMOCOCCAL IMMUNIZATION PPSV 23 [76531OPU] Order #: [id number] CBC + DIFF [SQCBCDIF] Order #: [id number] FUTURE COMP METABOLIC PANEL [SQCMP] Order #: [id number] FUTURE US ABD RT UPPER QUADRANT [[id number]] Order #: [id number] FUTUR E FECAL OCCULT BLOOD TEST [SQIFOBT] Order #: [id number] FUTURE LIPID PANEL, NONFASTING [SQLIPNF] Order #: [id number] FUTURE ECHO [600972] Order #: [id number]: 1 FUTURE perflutren lipid microspheres (DEFINITY) 1.1 mg/mL injection (to be provided with echo procedure)Inject 1.3 mL intravenously as directed. Administration Instructions: If no IV access, insert saline lock prior to administering contrast. Discontinue saline lock post exam . If patient has central line or IVAD, may access for administrat ion according to line specific nursing protocol. Once exam is co mplete, flush line and de-access per line specific nursing protocol. Diluted IV Bolus: Dilute 1.3 ml of Definity with 8.7 ml of preservative-free saline.Disp: 1.3 mLRfl: 0 TSH BLD [SQTSH] Order #: [id number] FUTURE HEPA/HEPB VACCINE ADULT IM [[id number]] Order #: [id number] Prescriptions as of 04/10/2019 Sig: HYDROCHLOROTHIAZIDE 12.5 MG C* Take 1 capsule by mouth once * FLUOXETINE 20 MG CAPSULE Take 1 capsule by mouth once * FOLIC ACID 400 MCG TABLET Take 1 tablet by mouth once d* LISINOPRIL 20 MG TABLET Take 1 tablet by mouth once d* THIAMINE HCL (VITAMIN B1) 100* Take 1 tablet by mouth once d * PERFLUTREN LIPID MICROSPHERES* Inject 1.3 mL intravenously a * Problem List As Of Date: 04/10/2019 (None) Prescriptions ordered this encounter Disp Refills Start End HYDROCHLOROTHIAZIDE 12.5 MG CAPSULE 30 c* 5 04/10/2019 Route: ORAL Sig: Take 1 capsule by mouth once daily. PERFLUTREN LIPID MICROSPHERES 1.1 MG* 1.3 * 0 04/10/2019 Class: In Office Route: INTRAVENOUS Sig: Inject 1.3 mL intravenously as directed. Ad ministration Instructions: If no IV access, insert saline lock prior to administering cont rast. Discontinue saline lock post exam. If patient has central li ne or IVAD, may access for administration according to line specific katlin sing protocol. Once exam is complete, flush line and de-access pe r line specific nursing protocol. Diluted IV Bolus: Dilute 1.3 ml of Definity with 8.7 ml of preservative-free saline. Medications Discontinued During This Encounter Hydrochlorothiazide 12.5 mg capsule 30 c* 12 03/09/201704/10 Route: ORAL Sig: Take 1 capsule by mouth once daily. Disc: Reason for discontinue is not on file. Disposition: Return in about 3 months (around 07/11/2019). Follow-up and Disposition History Recorded Questionnaire: MANUEL-7 ANXIETY SCALE Feeling nervous, anxious, or on edge -> 2 Over half the days Not being able to stop or control worrying -> 2 Over half th e days Worrying too much about different things -> 2 Over half the days Trouble relaxing -> 2 Over half the days Being so restless that it's hard to sit still -> 1 Several d ays Being easily annoyed or irritable -> 0 Not at all sure Feeling afraid as if something awful might happen -> 0 Not a t all sure MANUEL-7 Anxiety Score -> 9 If you checked off any problems, how dif ficult have these problems made it for you to do your work, take care of things at home, or get aubrie ng with other people? -> Somewhat difficult Encounter Status:Closed by DWIGHT PADILLA MD on obsolete on 2019-02 OBSOLETE Refill (FAMPWS) Normal 03-06-2019 [facility] ANA M VALDEZ ([id number]) [address] [facility] Date Time Provider Department ([id number]) 03/06/19 DWIGHT PADILLA) FAMPWS During your visit today, we recorded the following informati on about you: Renetta Thompson 03/06/2019 11:25 AM Signed Patient has been identified by name and date of : Yes Pending Prescriptions Disp Refills FLUOXETINE 20 MG CAPSULE 30 capsule 5 Sig: Take 1 capsule by mouth once daily. JEANNE: No FOLIC ACID 400 MCG TABLET 30 tablet 0 Sig: Take 1 tablet by mouth once daily. JEANNE: No LISINOPRIL 20 MG TABLET 30 tablet 0 Sig: Take 1 tablet by mouth once daily. JEANNE: No THIAMINE HCL (VITAMIN B1) 100 MG TABLET 30 tablet 5 Sig: Take 1 tablet by mouth once daily. JEANNE: No RX INSTRUCTIONS: Son said patient has not been taking his me dication for a long time. He would like to get him back all of his medicati ons. Patient scheduled a follow up appointment in March Patient aware RX will be sent to pharmacy. No need to notify patient. Renetta Ibarra Ma 03/11/2019 1:09 PM Signed Patient has not been seen since 03/09/2017. Coming in to review meds on 04/10 with CB. Wait until this time to renew? 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] MANUEL (generalized anxiety disorder) [F41.1] Alcoholic cirrhosis of liver without ascites (HCC) [K70.30] Hypertension, essential [I10] Order(s):FLUoxetine (PROZAC) 20 mg capsuleTake 1 capsule by mouth once daily.Disp: 30 capsuleRfl: 5 folic acid 400 mcg tabletTake 1 tablet by mouth once daily.D isp: 30 tabletRfl: 5 lisinopril (ZESTRIL, PRINIVIL) 20 mg tabletTake 1 tablet by mouth once daily.Disp: 30 tabletRfl: 5 thiamine (VITAMIN B-1) 100 mg tabletTake 1 tablet by mouth o nce daily.Disp: 30 tabletRfl: 5 Prescriptions as of 03/06/2019 Sig: FLUOXETINE 20 MG CAPSULE Take 1 capsule by mouth once * FOLIC ACID 400 MCG TABLET Take 1 tablet by mouth once d* LISINOPRIL 20 MG TABLET Take 1 tablet by mouth once d* THIAMINE HCL (VITAMIN B1) 100* Take 1 tablet by mouth once d * HYDROCHLOROTHIAZIDE 12.5 MG C* Take 1 capsule by mouth once * Problem List As Of Date: 03/06/2019 (None) Prescriptions ordered this encounter Disp Refills Start End FLUOXETINE 20 MG CAPSULE 30 c* 5 03/11/2019 Route: ORAL Sig: Take 1 capsule by mouth once daily. FOLIC ACID 400 MCG TABLET 30 t* 5 03/11/2019 Route: ORAL Sig: Take 1 tablet by mouth once daily. LISINOPRIL 20 MG TABLET 30 t* 5 03/11/2019 Route: ORAL Sig: Take 1 tablet by mouth once daily. THIAMINE HCL (VITAMIN B1) 100 MG TAB* 30 t* 5 03/11/2019 Route: ORAL Sig: Take 1 tablet by mouth once daily. Medications Discontinued During This Encounter FLUoxetine (PROZAC) 20 mg capsule 30 c* 5 09/15/2017 9 Route: ORAL Sig: Take 1 capsule by mouth once daily. Disc: Reason for discontinue is not on file. folic acid 400 mcg tablet 30 t* 0 10/20/2017 03/11/2019 Route: ORAL Sig: Take 1 tablet by mouth once daily. Disc: Reason for discontinue is not on file. lisinopril (ZESTRIL, PRINIVIL) 20 mg* 30 t* 0 10/20/201703/11 Route: ORAL Sig: Take 1 tablet by mouth once daily. Disc: Reason for discontinue is not on file. thiamine (VITAMIN B-1) 100 mg tablet 30 t* 5 09/15/20172018 Route: ORAL Sig: Take 1 tablet by mouth once daily. Disc: Reason for discontinue is not on file. Encounter Status:Closed by DWIGHT PADILLA MD on 9 Summary Purpose Family History No Family History Records Found Advance Directives No Advanced Directives Records Found Additional Source Comments FOR RECORDS PERTAINING TO PATIENTS WHO ARE OR HAVE BEEN ENROLLED IN A CHEMICAL DEPENDENCY/SUBSTANCE ABUSE PROGRAM, SOME INFORMATION MAY BE OMITTED. This clinical summary was aggregated from multiple sources. Caution should be exercised in using it in the provision of clinical care. This summary normalizes information from multiple sources, and as a consequence, information in this document may materially changethe coding, format and clinical context of patient data. In addition, data may be omittedin some cases. CLINICAL DECISIONS SHOULD BE BASED ON THE PRIMARY CLINICAL RECORDS. [facility] provides no warranty or guarantee of the accuracy or completeness of information in this document. UNRECOGNIZED CONTENT PROVIDED BELOW FOR UNRECOGNIZED SECTION No Status Records Found UNRECOGNIZED CONTENT PROVIDED BELOW FOR UNRECOGNIZED SECTION INFORMATION SOURCE DATE CREATED AUTHOR AUTHOR'S ORGANIZATIO N 01/16/2020 [facility]
--- OUTSIDE RECORDS SUMMARY | 2020-04-12 08:45 | XMS RPT_ITS | CCD ---
:1945 External Reference #:[id number] Author Organization [employer] Care Team Providers Name Role Phone Unavailable Unavailable Unavailable Results Result Name Value Range Unit Interpretation Flag Date Location obsolete on 2019-11 OBSOLETE Refill (FAMPWS) Normal 12-24-2019 [facility] ANA M VALDEZ ([id number]) 1945 [facility] Date Time Provider Department ([id number]) 12/24/19 DWIGHT PADILLA) FAMPWS During your visit [...] ARIAS PA-C on 12/24/19 [facility]) [facility] 12-10-2019 [place] [facility] ANA M VALDEZ ([id number]) 1945 [facility] Date Time Provider Department ([id number]) 12/10/19 DWIGHT PADILLA) RIANNAEVELYN During your visit today, we recorded the following informati on about you: Dwight Padilla MD 12/10/2019 12:32 PM Signed Normal cholesterol. Improved liver function. Normal magnesiu m level. TSH remains elevated, but trending toward normal. Please c all lab to add on free t4 to drawn labs. Daja Arzola LPN, SPORTS PHYSICIAN 12/10/2019 1:37 PM Signed Spoke with pts [...] [R94.6] Order(s):T4 FREE/FREE THYROX [SQFT4] Order #: [id number] FUT URE Prescriptions as of 12/10/2019 Sig: [...] TSH Qn 4.800 0.270-4.200 uU/mL High 12-09-2019 [facility] ([id number]) Comment: Performed By: #### CBCDIF, C MP, LIPNF, MG1, TSH #### [facility] [address], [place] [address] progress on 2019-11 PROGRESS HNO ID: [id number] Normal 12-09-2019 [facility] Author: Dwight Dunaway) Valerie Ramirez ([id number]) Service: ? Author Type: Physician Type: Progress [...] feel he was appropriate for anticoagula tion. [id number] score 3. Recommended he continue metoprolol and [...] visit, with more than 50% of the [facility] [id number] time of the visit in counseling / coordination of care. Dwight Padilla MD magnesium on -15 Magnesium [Mass/Vol] 1.9 1.7-2.3 mg/dL Normal 12-08- 0 [facility] (90459) Comment: Performed By: #### CBCDIF, C MP, LIPNF, MG1, TSH #### [facility] [address] [place], [place] [address] lipid panel, nonfast on 2019-12-09 Cholesterol [Mass/Vol] 119 <200 mg/dL Normal 020 [facility] (24001) Comment: Result Comment: <200 mg/dL, Desirable 200-239 mg/dL, Borderline hi gh >239 mg/dL, High Performed By: #### CBCDIF, C MP, LIPNF, MG1, TSH #### [facility] [address] [place], [place] [address] Cholesterol in 1.10 <2.54 mg/dL Normal 12-09-2019 [facility] LDL/Cholesterol in HDL [Mass [place] (58614) ratio] Comment: Result Comment: Reference: 1. National Cholesterol Educ ation Program ATP III Guideline At-A-Glance Quick Desk Reference: National Heart, Lung, and Blood [place]. National Institutes of Health. 2001: NIH Publication No. 01-3305. 2. An International Atherosc lerosis Society position paper: global recommendations for the management of dyslipidemia: executive summary, Atherosclerosis. 2014: 232(2):410-413. Performed By: #### CBCDIF, C MP, LIPNF, MG1, TSH #### [facility] [address] [place], [place] [address] Cholesterol.total/Cholesterol in 2.33 <5.10 mg/dL Normal 12-09-2019 [place] HDL [Mass ratio] Cli [facility]sey [place] ([address]) Comment: Performed By: #### CBCDIF, C MP, LIPNF, MG1, TSH #### [facility] [address] [place], [place] [address] HDL Cholesterol, NF 51 >39 mg/dL Normal 12-09-2019 [facility] (72567) Comment: Result Comment: 40-59 mg/dL, Acceptable >59 mg/dL, High: Negative ri sk factor for coronary heart disease <40 mg/dL, Low: Positive ris k factor for coronary heart disease Performed By: #### CBCDIF, C MP, LIPNF, MG1, TSH #### [facility] [address] [place], [place] [address] LDL Cholesterol, NF 56 <100 mg/dL Normal 12-09-2019 [facility] (25076) Comment: Result Comment: <100 mg/dL, Optimal 100-129 mg/dL, Near optimal/ above optimal 130-159 mg/dL, Borderline hi gh 160-189 mg/dL, High >189 mg/dL, Very high Secondary prevention optimal LDL Cholesterol levels are recommended to be < 70 mg/dL Performed By: #### CBCDIF, C MP, LIPNF, MG1, TSH #### [facility] [place] [address] Non HDL Chol, NF 68 <130 mg/dL Normal 12-09-2019 [facility] (01478) Comment: Result Comment: <130 mg/dL, Optimal 130-159 mg/dL, Near optimal/ above optimal 160-189 mg/dL, Borderline hi gh 190-219 mg/dL, High >219 mg/dL, Very high Secondary prevention optimal non HDL Cholesterol levels are recommended to be < 100 mg/dL Performed By: #### CBCDIF, C MP, LIPNF, MG1, TSH #### [facility] [address] [place] [address] Triglycerides, NF 60 <150 mg/dL Normal 12-09-2019 [facility] (27050) Comment: Result Comment: <150 mg/dL, Normal 150-199 mg/dL, Borderline hi gh 200-499 mg/dL, High >499 mg/dL, Very high Performed By: #### CBCDIF, C MP, LIPNF, MG1, TSH #### [facility] [address] [place] [address] VLDL Cholesterol, NF 12 <30 mg/dL Normal 0 [facility] (88951) Comment: Performed By: #### CBCDIF, C MP, LIPNF, MG1, TSH #### [facility] [address] [place], [place] [address] free t4 on Free T4 [Mass/Vol] 1.1 0.9-1.7 ng/dL Normal 12-09-2019 [facility] (92891) Comment: Performed By: #### FT4 ####[facility] [address] [place], [place] [phone] comp metabolic panel on 2019-12-09 Albumin [Mass/Vol] 3.7 3.9-4.9 g/dL Low 12-09-2019 [facility] (84335) Comment: Performed By: #### CBCDIF, C MP, LIPNF, MG1, TSH #### [facility] [address] [place], [place] [address] ALP [Catalytic activity/Vol] 113 38-113 U/L Normal 0 12-09-2019 [facility] (95004) Comment: Performed By: #### CBCDIF, C MP, LIPNF, MG1, TSH #### [facility] [address] [place], [place] [address] ALT [Catalytic activity/Vol] 25 10-54 U/L Normal 0 12-09-2019 [facility] (53889) Comment: Performed By: #### CBCDIF, C MP, LIPNF, MG1, TSH #### [facility] [address] [place], [place] [address] Anion gap [Moles/Vol] 13 9-18 mmol/L Normal 12-09-19 [facility] (65661) Comment: Performed By: #### CBCDIF, C MP, LIPNF, MG1, TSH #### [facility] [address] [place], [place] [address] AST [Catalytic activity/Vol] 50 14-40 U/L High 0 12-09-2019 [facility] (92236) Comment: Performed By: #### CBCDIF, C MP, LIPNF, MG1, TSH #### [facility] [address] [place], [place] [address] Bilirubin [Mass/Vol] 2.0 0.2-1.3 mg/dL High 0 [facility] (25271) Comment: Performed By: #### CBCDIF, C MP, LIPNF, MG1, TSH #### [facility] [address] [place] [address] [place], [place] [address] Calcium [Mass/Vol] 9.1 8.5-10.2 mg/dL Normal 12-09-2019 [facility] (44029) Comment: Performed By: #### CBCDIF, C MP, LIPNF, MG1, TSH #### [facility] [address] [place] [address] Chloride [Moles/Vol] 98 97-105 mmol/L Normal 0 [facility] (64009) Comment: Performed By: #### CBCDIF, C MP, LIPNF, MG1, TSH #### [address] [address] CO2 [Moles/Vol] 25 22-30 mmol/L Normal 12-09-2019 [facility] (37460) Comment: Performed By: #### CBCDIF, C MP, LIPNF, MG1, TSH #### [address] [address] Creatinine [Mass/Vol] 0.70 0.73-1.22 mg/dL Low 12-09-19 20 [facility] (78968) Comment: Performed By: #### CBCDIF, C MP, LIPNF, MG1, TSH #### [place] [address] [place], [place] [address] eGFR- Amer. >60 Normal 12-09-2019 [facility] (70005) Comment: Performed By: #### CBCDIF, C MP, LIPNF, MG1, TSH #### [place] [address] [place], [place] [address] GFR/1.73 sq M predicted >60 mL/min/{1.73_m2} Normal 12-09-2019 [facility] among non-blacks MDRD [place] (85892) (S/P/Bld) [Vol rate/Area] Comment: Result Comment: eGFR [...] Yuri TAYLOR MP, SEGUNDO, MG1, TSH #### [facility] [address] [place], [place] [address] Glucose [Mass/Vol] 86 74-99 mg/dL Normal 12-09-2019 [facility] (22890) Comment: Result Comment: The [place] Diabetes Association (ADA) provides guidance for cutoff [...] for diagnosis of diabetes. Reference: Standards of [facility] Care in Diabetes 2016, [place] [employer] Association. Diabetes Care. 2016.39(Suppl 1). Performed By: #### Yuri TAYLOR MP, LIPNF, MG1, TSH #### [facility] [address] [place], [place] [address] Potassium [Moles/Vol] 4.2 3.7-5.1 mmol/L Normal 12-09-19 [facility] (01625) Comment: Performed By: #### CBCDIF, C MP, LIPNF, MG1, TSH #### [place] [address] Protein [Mass/Vol] 6.8 6.3-8.0 g/dL Normal 12-09-2019 [facility] (72006) Comment: Performed By: #### CBCDIF, C MP, LIPNF, MG1, TSH #### [place] [address] Sodium [Moles/Vol] 136 136-144 mmol/L Normal 12-09-2019 [facility] (20493) Comment: Performed By: #### CBCDIF, C MP, LIPNF, MG1, TSH #### [place] [address] Urea nitrogen [Mass/Vol] 5 9-24 mg/dL Low 12-08 [facility] (28602) Comment: Performed By: #### CBCDIF, C MP, LIPNF, MG1, TSH #### [address] [address] cbc and differential on 2019-12-09 Abs Baso 0.14 <0.11 k/uL High 12-09-2019 [facility] (92655) Comment: Performed By: #### CBCDIF, C MP, LIPNF, MG1, TSH #### [address] [address] Abs [place] 0.94 <0.87 k/uL High 12-09-2019 [facility] (82164) Comment: Performed By: #### CBCDIF, C MP, LIPNF, MG1, TSH #### [address] [address] Abs Neut 4.70 1.45-7.50 k/uL Normal 12-09-2019 [facility] (11690) Comment: Performed By: #### CBCDIF, C MP, LIPNF, MG1, TSH #### [facility] [address] [place], [place] [address] Absolute nRBC <0.01 <0.01 Normal 12-09-2019 [facility] (78472) Comment: Performed By: #### CBCDIF, C MP, LIPNF, MG1, TSH #### [facility] [address] [place] [address] Basophils/100 WBC (Bld) 1.8 % Normal 2019 [facility] (57377) Comment: Performed By: #### CBCDIF, C MP, LIPNF, MG1, TSH #### [facility] [address] [place] [address] DTYPE Auto Diff Normal 12-09-2019 [facility] (66643) Comment: Performed By: #### CBCDIF, C MP, LIPNF, MG1, TSH #### [facility] [address] [place], [place] [address] Eosinophils (Bld) [#/Vol] 0.18 <0.46 k/uL Normal 11-24 [facility] (52447) Comment: Performed By: #### CBCDIF, C MP, LIPNF, MG1, TSH #### [facility] [address] [place], [place] [address] Eosinophils/100 WBC (Bld) 2.3 % Normal 11-24 [facility] (77480) Comment: Performed By: #### CBCDIF, C MP, LIPNF, MG1, TSH #### [facility] [address] [place], [place] [address] Erythrocyte distribution 14.4 11.5-15.0 % Normal 12-08 [facility] width (RBC) [Ratio] [place] (17708) Comment: Performed By: #### CBCDIF, C MP, LIPNF, MG1, TSH #### [facility] [address] [place], [place] [address] Hematocrit (Bld) [Volume 52.2 39.0-51.0 % High 12-08 [facility] (37570) Comment: Performed By: #### CBCDIF, C MP, LIPNF, MG1, TSH #### [facility] [place], [place] [address] Hemoglobin (Bld) 16.9 13.0-17.0 g/dL Normal 12-09-2019 [facility] [Mass/Vol] [place] (25286) Comment: Performed By: #### CBCDIF, C MP, LIPNF, MG1, TSH #### [address] [address] Lymphocytes (Bld) [#/Vol] 1.74 1.00-4.00 k/uL Normal 11-24 [facility] (01222) Comment: Performed By: #### CBCDIF, C MP, LIPNF, MG1, TSH #### [address] [address] Lymphocytes/100 WBC (Bld) 22.6 % Normal 11-24 [facility] (83043) Comment: Performed By: #### CBCDIF, C MP, LIPNF, MG1, TSH #### [place] [address] [place], [place] [address] MCH (RBC) [Entitic mass] 33.5 26.0-34.0 pG Normal 12-08 [facility] (89774) Comment: Performed By: #### CBCDIF, C MP, LIPNF, MG1, TSH #### [facility] [place], [place] [address] MCHC (RBC) [Mass/Vol] 32.4 30.5-36.0 g/dL Normal 12-09-19 [facility] (07468) Comment: Performed By: #### CBCDIF, C MP, LIPNF, MG1, TSH #### [facility] [address] [place], [place] [address] MCV (RBC) [Entitic vol] 103.4 80.0-100.0 fL High 12-08 [facility] (12520) Comment: Performed By: #### CBCDIF, C MP, LIPNF, MG1, TSH #### [place] [address] [place], [place] [address] Monocytes/100 WBC (Bld) 12.2 % Normal 2019 [facility] (54443) Comment: Performed By: #### CBCDIF, C MP, LIPNF, MG1, TSH #### [place] [address] [place], [place] [address] Neutrophils/100 WBC (Bld) 61.1 % Normal 11-24 [facility] (74145) Comment: Performed By: #### CBCDIF, C MP, LIPNF, MG1, TSH #### [place] [address] [place], [place] [address] NRBCs 0.0 0 /100 WBC Normal 12-09-2019 [facility] (45529) Comment: Performed By: #### CBCDIF, C MP, LIPNF, MG1, TSH #### [place] [address] [place], [place] [address] Platelet mean volume 10.4 9.0-12.7 fL Normal 0 [facility] (Bld) [Entitic vol] [place] ([address]) Comment: Performed By: #### CBCDIF, C MP, LIPNF, MG1, TSH #### [facility] [address] [place], [place] [address] Platelets (Bld) [#/Vol] 174 150-400 k/uL Normal 2019 [facility] (95969) Comment: Performed By: #### CBCDIF, C MP, LIPNF, MG1, TSH #### [facility] [address] [place], [place] [address] RBC (Bld) [#/Vol] 5.05 4.20-6.00 m/uL Normal 12-09-2019 [facility] (16747) Comment: Performed By: #### CBCDIF, C MP, LIPNF, MG1, TSH #### [facility] [address] [place], [place] [address] WBC (Bld) [#/Vol] 7.70 3.70-11.00 k/uL Normal 12-09-2019 [facility] (71785) Comment: Performed By: #### CBCDIF, C MP, LIPNF, MG1, TSH #### [facility] [address] [place] [id number] cnpn on 2019-12-02 SMITHAN Telephone (USMANWS) Normal 12-02-2019 [place] [facility] ANA M VALDEZ ([id number]) 1945 [facility] Date Time Provider Department () 12/02/19 RIMMA LAMBERT (SMITHA) [place] During your visit today, we recorded the following informati on about you: Rimma Lambert APRN.CNP 12/02/2019 11:55 AM Signed Patient is to be discharged tomorrow from [facility]. Needs to make follow-up appointment. Please assist in scheduling EDITH Chong LPN, JOEL 12/02/2019 1:41 PM Signed He has a hospital f/up sched gail Padilla on Monday hospital called and made. Rmima Lambert APRN.CNP 12/02/2019 2:01 PM Signed Good [...] 12/02/19 progress on 2019-03 PROGRESS HNO ID: [id number] Normal 04-10-2019 [facility] Author: Dwight Mcallister () Valerie [place] ([id number]) Service: ? Author Type: Physician Type: Progress [...] file Gets together: Not on file Attends congregation service: Not on file Active member of [...] CNOV Office Visit (FAMPWS) Normal 04-10-20 19 [place] [facility] ANA M VALDEZ ([id number]) 1945 [facility] Date Time Provider Department ([id number]) 04/10/19 2:20 PM DWIGHT PADILLA) FAMPWS During [...] file Gets together: Not on file Attends congregation service: Not on file Active member of [...] capsuleRfl: 5 HEPATITIS A VACCINE ADULT IM [25032MHV] Order #: [id number] HEPATITIS B VACC ADULT DOSAGE (3 DOSE SCHED) IM USE [84376ZW D] Order #: [id number] PNEUMOCOCCAL IMMUNIZATION PPSV 23 [78378BMH] Order #: [id number] CBC + DIFF [SQCBCDIF] Order #: [id number] FUTURE COMP METABOLIC PANEL [SQCMP] Order #: [id number] FUTURE US ABD RT UPPER QUADRANT [3462351] Order #: [id number] FUTUR E FECAL OCCULT BLOOD TEST [SQIFOBT] Order #: [id number] FUTURE LIPID PANEL, NONFASTING [SQLIPNF] Order #: [id number] FUTURE ECHO [687125] Order #: [id number]: 1 FUTURE perflutren lipid microspheres (DEFINITY) 1.1 [...] mLRfl: 0 TSH BLD [SQTSH] Order #: [id number] FUTURE HEPA/HEPB VACCINE ADULT IM [26059AGR] Order #: [id number] Prescriptions as of 04/10/2019 Sig: HYDROCHLOROTHIAZIDE 12.5 [...] on 2019-02 OBSOLETE Refill (FAMPWS) Normal 03-06-2019 [facility] ANA M VALDEZ ([id number]) 1945 [facility] Date Time Provider Department ([id number]) 03/06/19 DWIGHT PADILLA) FAMPWS During your visit [...] BE BASED ON THE PRIMARY CLINICAL RECORDS. [facility] provides no warranty or guarantee of the accuracy or completeness of information in this document. UNRECOGNIZED CONTENT PROVIDED BELOW FOR UNRECOGNIZED SECTION No Status Records Found UNRECOGNIZED CONTENT PROVIDED BELOW FOR UNRECOGNIZED SECTION INFORMATION SOURCE DATE CREATED AUTHOR AUTHOR'S ORGANIZATIO N 01/16/2020 [facility]
--- OUTSIDE RECORDS SUMMARY | 2020-04-12 08:49 | XMS RPT_ITS | CCD ---
:1945 External Reference #:[id number] Author Organization [employer] Care Team Providers Name Role Phone Unavailable Unavailable Unavailable Results Result Name Value Range Unit Interpretation Flag Date Location obsolete on 2019-11 OBSOLETE Refill (FAMPWS) Normal 12-24-2019 [facility] ANA M VALDEZ ([id number]) 1945 [facility] Date Time Provider Department ([id number]) 12/24/19 DWIGHT PADILLA) FAMPWS During your visit [...] ARIAS PA-C on 12/24/19 [facility]) [facility] 12-10-2019 [place] [facility] ANA M VALDEZ ([id number]) 1945 [facility] Date Time Provider Department ([id number]) 12/10/19 DWIGHT PADILLA) RIANNAEVELYN During your visit today, we recorded the following informati on about you: Dwight Padilla MD 12/10/2019 12:32 PM Signed Normal cholesterol. Improved liver function. Normal magnesiu m level. TSH remains elevated, but trending toward normal. Please c all lab to add on free t4 to drawn labs. Daja Arzola LPN, CLIENT SERVICE CONSULTANT 12/10/2019 1:37 PM Signed Spoke with pts [...] [R94.6] Order(s):T4 FREE/FREE THYROX [SQFT4] Order #: [id number] FUT URE Prescriptions as of 12/10/2019 Sig: [...] TSH Qn 4.800 0.270-4.200 uU/mL High 12-09-2019 [facility] ([id number]) Comment: Performed By: #### CBCDIF, C MP, LIPNF, MG1, TSH #### [facility] [place] [facility] [address] [place], [place] [address] progress on 2019-11 PROGRESS HNO ID: [id number] Normal 12-09-2019 [facility] [place] [facility] Author: Dwight Dunaway) Valerie Ramirez ([id number]) Service: ? Author Type: Physician Type: Progress [...] feel he was appropriate for anticoagula tion. [id number] score 3. Recommended he continue metoprolol and [...] visit, with more than 50% of the [facility] [id number] time of the visit in counseling / coordination of care. Dwight Padilla MD magnesium on -15 Magnesium [Mass/Vol] 1.9 1.7-2.3 mg/dL Normal 12-08- 0 [facility] (67349) Comment: Performed By: #### CBCDIF, C MP, LIPNF, MG1, TSH #### [facility] [place] [facility] [address] [place], [place] [address] lipid panel, nonfast on 2019-12-09 Cholesterol [Mass/Vol] 119 <200 mg/dL Normal 020 [facility] (36222) Comment: Result Comment: <200 mg/dL, Desirable 200-239 mg/dL, Borderline hi gh >239 mg/dL, High Performed By: #### CBCDIF, C MP, LIPNF, MG1, TSH #### [facility] [place] [facility] [address] [place], [place] [address] Cholesterol in 1.10 <2.54 mg/dL Normal 12-09-2019 [facility] LDL/Cholesterol in HDL [[facility] [place] (63664) ratio] Comment: Result Comment: Reference: 1. National Cholesterol Educ ation Program ATP III Guideline At-A-Glance Quick Desk Reference: National Heart, Lung, and Blood [place]. National Institutes of Health. 2001: NIH Publication No. 01-3305. 2. An International Atherosc lerosis Society position paper: global recommendations for the management of dyslipidemia: executive summary, Atherosclerosis. 2014: 232(2):410-413. Performed By: #### CBCDIF, C MP, LIPNF, MG1, TSH #### [facility] [place] [facility] [address] [place], [place] [address] Cholesterol.total/Cholesterol in 2.33 <5.10 mg/dL Normal 12-09-2019 [place] HDL [Mass ratio] [facility] [place] (35319) Comment: Performed By: #### CBCDIF, C MP, LIPNF, MG1, TSH #### [facility] [place] [facility] [address] [place], [place] [address] HDL Cholesterol, NF 51 >39 mg/dL Normal 12-09-2019 [facility] (23510) Comment: Result Comment: 40-59 mg/dL, Acceptable >59 mg/dL, High: Negative ri sk factor for coronary heart disease <40 mg/dL, Low: Positive ris k factor for coronary heart disease Performed By: #### CBCDIF, C MP, LIPNF, MG1, TSH #### [facility] [place] [facility] [address] [place], [place] [address] LDL Cholesterol, NF 56 <100 mg/dL Normal 12-09-2019 [facility] (97249) Comment: Result Comment: <100 mg/dL, Optimal 100-129 mg/dL, Near optimal/ above optimal 130-159 mg/dL, Borderline hi gh 160-189 mg/dL, High >189 mg/dL, Very high Secondary prevention optimal LDL Cholesterol levels are recommended to be < 70 mg/dL Performed By: #### CBCDIF, C MP, LIPNF, MG1, TSH #### [facility] [place] [facility] [place] [address] Non HDL Chol, NF 68 <130 mg/dL Normal 12-09-2019 Cl [facility] (76590) Comment: Result Comment: <130 mg/dL, Optimal 130-159 mg/dL, Near optimal/ above optimal 160-189 mg/dL, Borderline hi gh 190-219 mg/dL, High >219 mg/dL, Very high Secondary prevention optimal non HDL Cholesterol levels are recommended to be < 100 mg/dL Performed By: #### CBCDIF, C MP, LIPNF, MG1, TSH #### [facility] [address] [place] [address] Triglycerides, NF 60 <150 mg/dL Normal 12-09-2019 [facility] (04556) Comment: Result Comment: <150 mg/dL, Normal 150-199 mg/dL, Borderline hi gh 200-499 mg/dL, High >499 mg/dL, Very high Performed By: #### CBCDIF, C MP, LIPNF, MG1, TSH #### [facility] [address] [place] [address] VLDL Cholesterol, NF 12 <30 mg/dL Normal 0 [facility] (30914) Comment: Performed By: #### CBCDIF, C MP, LIPNF, MG1, TSH #### [facility] [address] [place], [place] [address] free t4 on Free T4 [Mass/Vol] 1.1 0.9-1.7 ng/dL Normal 12-09-2019 [facility] (47771) Comment: Performed By: #### FT4 ####[facility] [address] [place], [place] [phone] comp metabolic panel on 2019-12-09 Albumin [Mass/Vol] 3.7 3.9-4.9 g/dL Low 12-09-2019 [facility] (48392) Comment: Performed By: #### CBCDIF, C MP, LIPNF, MG1, TSH #### [facility] [place] [facility] [address] [place], [place] [address] ALP [Catalytic activity/Vol] 113 38-113 U/L Normal 0 12-09-2019 [facility] (98194) Comment: Performed By: #### CBCDIF, C MP, LIPNF, MG1, TSH #### [facility] [address] [place], [place] [address] ALT [Catalytic activity/Vol] 25 10-54 U/L Normal 0 12-09-2019 [facility] (04211) Comment: Performed By: #### CBCDIF, C MP, LIPNF, MG1, TSH #### [facility] [address] [place], [place] [address] Anion gap [Moles/Vol] 13 9-18 mmol/L Normal 12-09-19 [facility] (37990) Comment: Performed By: #### CBCDIF, C MP, LIPNF, MG1, TSH #### [facility] [place] [facility] [address] [place], [place] [address] AST [Catalytic activity/Vol] 50 14-40 U/L High 0 12-09-2019 [facility] (79905) Comment: Performed By: #### CBCDIF, C MP, LIPNF, MG1, TSH #### [facility] [place] [facility] [address] [place], [place] [address] Bilirubin [Mass/Vol] 2.0 0.2-1.3 mg/dL High 0 [facility] (43926) Comment: Performed By: #### CBCDIF, C MP, LIPNF, MG1, TSH #### [facility] [place] [facility] [place] [address] [place], [place] [address] Calcium [Mass/Vol] 9.1 8.5-10.2 mg/dL Normal 12-09-2019 [facility] (04600) Comment: Performed By: #### CBCDIF, C MP, LIPNF, MG1, TSH #### [facility] [place] [facility] [address] [place] [address] Chloride [Moles/Vol] 98 97-105 mmol/L Normal 0 [facility] (57143) Comment: Performed By: #### CBCDIF, C MP, LIPNF, MG1, TSH #### [address] [address] CO2 [Moles/Vol] 25 22-30 mmol/L Normal 12-09-2019 [facility] (40466) Comment: Performed By: #### CBCDIF, C MP, LIPNF, MG1, TSH #### [address] [address] Creatinine [Mass/Vol] 0.70 0.73-1.22 mg/dL Low 12-09-19 20 [facility] (82276) Comment: Performed By: #### CBCDIF, C MP, LIPNF, MG1, TSH #### [place] [address] [place], [place] [address] eGFR- Amer. >60 Normal 12-09-2019 [facility] (42176) Comment: Performed By: #### CBCDIF, C MP, LIPNF, MG1, TSH #### [place] [address] [place], [place] [address] GFR/1.73 sq M predicted >60 mL/min/{1.73_m2} Normal 12-09-2019 [facility] [place] [facility] among non-blacks MDRD [place] (23716) (S/P/Bld) [Vol rate/Area] Comment: Result Comment: eGFR [...] Yuri TAYLOR MP, SEGUNDO, MG1, TSH #### [facility] [place] [facility] [address], [place] [address] Glucose [Mass/Vol] 86 74-99 mg/dL Normal 12-09-2019 [facility] (43596) Comment: Result Comment: The [place] Diabetes Association (ADA) provides guidance for cutoff [...] for diagnosis of diabetes. Reference: Standards of [facility] Care in Diabetes 2016, [place] Diabetes Association. Diabetes Care. 2016.39(Suppl 1). Performed By: #### Yuri TAYLOR MP, LIPNF, MG1, TSH #### [facility] [place] [facility] [address] [place], [place] [address] Potassium [Moles/Vol] 4.2 3.7-5.1 mmol/L Normal 12-09-19 [facility] (24689) Comment: Performed By: #### CBCDIF, C MP, LIPNF, MG1, TSH #### [place] [address] Protein [Mass/Vol] 6.8 6.3-8.0 g/dL Normal 12-09-2019 [facility] (22525) Comment: Performed By: #### CBCDIF, C MP, LIPNF, MG1, TSH #### [place] [address] Sodium [Moles/Vol] 136 136-144 mmol/L Normal 12-09-2019 [facility] (69011) Comment: Performed By: #### CBCDIF, C MP, LIPNF, MG1, TSH #### [place] [address] Urea nitrogen [Mass/Vol] 5 9-24 mg/dL Low 12-08 [facility] (88880) Comment: Performed By: #### CBCDIF, C MP, LIPNF, MG1, TSH #### [address] [address] cbc and differential on 2019-12-09 Abs Baso 0.14 <0.11 k/uL High 12-09-2019 [facility] (14304) Comment: Performed By: #### CBCDIF, C MP, LIPNF, MG1, TSH #### [address] [address] Abs [place] 0.94 <0.87 k/uL High 12-09-2019 [facility] (42562) Comment: Performed By: #### CBCDIF, C MP, LIPNF, MG1, TSH #### [address] [address] Abs Neut 4.70 1.45-7.50 k/uL Normal 12-09-2019 [facility] (94253) Comment: Performed By: #### CBCDIF, C MP, LIPNF, MG1, TSH #### [facility] [place] [facility] [address] [place], [place] [address] Absolute nRBC <0.01 <0.01 Normal 12-09-2019 [facility] (75613) Comment: Performed By: #### CBCDIF, C MP, LIPNF, MG1, TSH #### [facility] [address] [place] [address] Basophils/100 WBC (Bld) 1.8 % Normal 2019 [facility] (64371) Comment: Performed By: #### CBCDIF, C MP, LIPNF, MG1, TSH #### [facility] [address] [place] [address] DTYPE Auto Diff Normal 12-09-2019 [facility] (81748) Comment: Performed By: #### CBCDIF, C MP, LIPNF, MG1, TSH #### [facility] [address] [place], [place] [address] Eosinophils (Bld) [#/Vol] 0.18 <0.46 k/uL Normal 11-24 [facility] (95596) Comment: Performed By: #### CBCDIF, C MP, LIPNF, MG1, TSH #### [facility] [address] [place], [place] [address] Eosinophils/100 WBC (Bld) 2.3 % Normal 11-24 [facility] (28318) Comment: Performed By: #### CBCDIF, C MP, LIPNF, MG1, TSH #### [facility] [address] [place], [place] [address] Erythrocyte distribution 14.4 11.5-15.0 % Normal 12-08 [facility] [place] [facility] width (RBC) [Ratio] [place] (43235) Comment: Performed By: #### CBCDIF, C MP, LIPNF, MG1, TSH #### [facility] [place] [facility] [address] [place], [place] [address] Hematocrit (Bld) [Volume 52.2 39.0-51.0 % High 12-08 [facility] (28007) Comment: Performed By: #### CBCDIF, C MP, LIPNF, MG1, TSH #### [facility] [place] [facility] [place], [place] [address] Hemoglobin (Bld) 16.9 13.0-17.0 g/dL Normal 12-09-2019 [facility] [Mass/Vol] [place] (43223) Comment: Performed By: #### CBCDIF, C MP, LIPNF, MG1, TSH #### [address] [address] Lymphocytes (Bld) [#/Vol] 1.74 1.00-4.00 k/uL Normal 11-24 [facility] (77639) Comment: Performed By: #### CBCDIF, C MP, LIPNF, MG1, TSH #### [address] [address] Lymphocytes/100 WBC (Bld) 22.6 % Normal 11-24 [facility] (97796) Comment: Performed By: #### CBCDIF, C MP, LIPNF, MG1, TSH #### [place] [address] [place], [place] [address] MCH (RBC) [Entitic mass] 33.5 26.0-34.0 pG Normal 12-08 [facility] (93871) Comment: Performed By: #### CBCDIF, C MP, LIPNF, MG1, TSH #### [facility] [place] [facility] [place], [place] [address] MCHC (RBC) [Mass/Vol] 32.4 30.5-36.0 g/dL Normal 12-09-19 [facility] (73175) Comment: Performed By: #### CBCDIF, C MP, LIPNF, MG1, TSH #### [facility] [place] [facility] [address] [place] [place], [place] [address] MCV (RBC) [Entitic vol] 103.4 80.0-100.0 fL High 12-08 [facility] (74879) Comment: Performed By: #### CBCDIF, C MP, LIPNF, MG1, TSH #### [place] [address] [place], [place] [address] Monocytes/100 WBC (Bld) 12.2 % Normal 2019 [facility] (74644) Comment: Performed By: #### CBCDIF, C MP, LIPNF, MG1, TSH #### [place] [address] [place], [place] [address] Neutrophils/100 WBC (Bld) 61.1 % Normal 11-24 [facility] (43561) Comment: Performed By: #### CBCDIF, C MP, LIPNF, MG1, TSH #### [place] [address] [place], [place] [address] NRBCs 0.0 0 /100 WBC Normal 12-09-2019 [facility] (30280) Comment: Performed By: #### CBCDIF, C MP, LIPNF, MG1, TSH #### [place] [address] [place], [place] [address] Platelet mean volume 10.4 9.0-12.7 fL Normal 0 [facility] [place] [facility] (Bld) [Entitic vol] [place] (26171) Comment: Performed By: #### CBCDIF, C MP, LIPNF, MG1, TSH #### [facility] [address] [place], [place] [address] Platelets (Bld) [#/Vol] 174 150-400 k/uL Normal 2019 [facility] (67088) Comment: Performed By: #### CBCDIF, C MP, LIPNF, MG1, TSH #### [facility] [place] [facility] [address] [place], [place] [address] RBC (Bld) [#/Vol] 5.05 4.20-6.00 m/uL Normal 12-09-2019 [facility] (20487) Comment: Performed By: #### CBCDIF, C MP, LIPNF, MG1, TSH #### [facility] [place] [facility] [address] [place], [place] [address] WBC (Bld) [#/Vol] 7.70 3.70-11.00 k/uL Normal 12-09-2019 [facility] (70103) Comment: Performed By: #### CBCDIF, C MP, LIPNF, MG1, TSH #### [facility] [place] [facility] [address] [place] [id number] cnpn on 2019-12-02 SMITHAN Telephone (USMANWS) Normal 12-02-2019 [place] [facility] ANA M VALDEZ ([id number]) 1945 [facility] Date Time Provider Department () 12/02/19 RIMMA LAMBERT (SMITHA) [place] During your visit today, we recorded the following informati on about you: Rimma Lambert APRN.CNP 12/02/2019 11:55 AM Signed Patient is to be discharged tomorrow from [facility]. Needs to make follow-up appointment. Please assist [...] 12/02/19 progress on 2019-03 PROGRESS HNO ID: [id number] Normal 04-10-2019 [facility] [place] [facility] Author: Dwight Mcallister () Valerie [place] ([id number]) Service: ? Author Type: Physician Type: Progress [...] file Gets together: Not on file Attends zoroastrianism service: Not on file Active member of [...] CNOV Office Visit (FAMPWS) Normal 04-10-20 19 [facility] ANA M VALDEZ ([id number]) 1945 [facility] Date Time Provider Department (04216) 04/10/19 2:20 PM DWIGHT PADILLA) FAMPWS During [...] file Gets together: Not on file Attends zoroastrianism service: Not on file Active member of [...] capsuleRfl: 5 HEPATITIS A VACCINE ADULT IM [13536BGP] Order #: [id number] HEPATITIS B VACC ADULT DOSAGE (3 DOSE SCHED) IM USE [60729YZ D] Order #: [id number] PNEUMOCOCCAL IMMUNIZATION PPSV 23 [81253PZH] Order #: [id number] CBC + DIFF [SQCBCDIF] Order #: [id number] FUTURE COMP METABOLIC PANEL [SQCMP] Order #: [id number] FUTURE US ABD RT UPPER QUADRANT [2068364] Order #: [id number] FUTUR E FECAL OCCULT BLOOD TEST [SQIFOBT] Order #: [id number] FUTURE LIPID PANEL, NONFASTING [SQLIPNF] Order #: [id number] FUTURE ECHO [642398] Order #: [id number]: 1 FUTURE perflutren lipid microspheres (DEFINITY) 1.1 [...] mLRfl: 0 TSH BLD [SQTSH] Order #: [id number] FUTURE HEPA/HEPB VACCINE ADULT IM [26580SAP] Order #: [id number] Prescriptions as of 04/10/2019 Sig: HYDROCHLOROTHIAZIDE 12.5 [...] on 2019-02 OBSOLETE Refill (FAMPWS) Normal 03-06-2019 [facility] ANA M VALDEZ ([id number]) 1945 [facility] Date Time Provider Department (41541) 03/06/19 DWIGHT PADILLA) FAMPWS During your visit [...] BE BASED ON THE PRIMARY CLINICAL RECORDS. [facility] provides no warranty or guarantee of the accuracy or completeness of information in this document. UNRECOGNIZED CONTENT PROVIDED BELOW FOR UNRECOGNIZED SECTION No Status Records Found UNRECOGNIZED CONTENT PROVIDED BELOW FOR UNRECOGNIZED SECTION INFORMATION SOURCE DATE CREATED AUTHOR AUTHOR'S ORGANIZATIO N 01/16/2020 [facility]
== END 2019-12-02 12:09 | disposition home or self-care (01) | DRG 603 ==
LOC: ED 16:23 → MS3 19:45 → PCU 11-30 06:09
PROVIDERS: Nurse Practitioner Family; Admitting Provider Family Medicine; Emergency Provider Emergency Medicine; PCP Family Medicine; Visit Provider Internal Medicine
DX: L03.116 Cellulitis of left lower limb (principal); S80.12XA Contusion of left lower leg, initial encounter; W17.89XA Other fall from one level to another, initial encounter; I48.0 Paroxysmal atrial fibrillation; I10 Essential (primary) hypertension; K21.9 Gastro-esophageal reflux disease without esophagitis; F32.9 Major depressive disorder, single episode, unspecified; F41.9 Anxiety disorder, unspecified; F10.10 Alcohol abuse, uncomplicated; Y90.9 Presence of alcohol in blood, level not specified; J44.9 Chronic obstructive pulmonary disease, unspecified; Z79.899 Other long term (current) drug therapy; Z87.891 Personal history of nicotine dependence; E87.6 Hypokalemia
CPT/HCPCS: 36415; 71045; 73590; 73700; 80048; 80320; 83735; 84100; 84439; 84443; 84484; 85025; 85027; 87040; 87070; 87205; 93005; 93306; 93971; 94640; 97161; 97165; 99251; 99284; J7030; J7050; A4216; G0463; G0480; J2405

== ENCOUNTER 2020-09-03 12:00 | Outpatient (RCR) | payer MEDICARE, OTHER, SELFPAY ==
[2019-11-29 20:08] VITALS: BMI 26.6
[2020-09-03] MEDS: COVID-19 VACC, MRNA(PFIZER)/PF 30 MCG/0.3 ML SYRINGE IM (10:30)
[2020-09-24] MEDS: COVID-19 VACC, MRNA(PFIZER)/PF 30 MCG/0.3 ML SYRINGE IM (10:39)
== END 2020-12-01 23:59 ==
LOC: IMMUN 12:00
PROVIDERS: PCP Family Medicine; Visit Provider Family Medicine
DX: Z23 Encounter for immunization (principal)
CPT/HCPCS: 0001A; 0002A; 91300

== ENCOUNTER 2021-03-07 15:02 | Emergency (ER) | payer OTHER, MEDICARE, SELFPAY ==
[2021-03-07 15:03] VITALS: BP 154/116; PULSE 115; RESP 24; TEMP 36.5; O2SAT 88; BMI 26.4
[2021-03-07 15:08] VITALS: RESP 24; O2SAT 94
[2021-03-07 15:26] VITALS: O2SAT 93
--- NOTE | 2021-03-07 15:28 | EKG12_ITS ---
Test Reason : Blood Pressure : / mmHG Vent. Rate : 114 BPM Atrial Rate : 115 BPM P-R Int : 000 ms QRS Dur : 174 ms QT Int : 364 ms P-R-T Axes : 000 075 -03 degrees QTc Int : 501 ms Atrial fibrillation Right bundle branch block Abnormal ECG Confirmed by WILLIAM CARLSON, MILI ([id number]), development editor VICKI BROTHERS ([id number]) on 03/08/2021 1:45:10 PM Referred By: AMINA Confirmed By:MILI THOMAS MD
--- NOTE | 2021-03-07 15:29 | EDS_ITS ---
HPI History of Present Illness Chief Complaint: Shortness of Breath Detail of Chief Complaint: Right leg swelling and hypoxia Informant: patient and family Narrative Narrative: Patient presents to the emergency department complaint of right sided leg swelling that started about a month ago. Patient denies any trauma to the leg. He denies recent travel or surgery. Patient was taken by his son to urgent care today and they noted that he was tachypneic and hypoxic and referred to the emergency department. Patient has history of COPD. Patient has history of hypertension but has been noncompliant with meds and really does not go to t he doctor. He denies recent travel or surgery. No history of PE or DVT. Patient has been immunized against Covid vaccine. He denies any fever or cough or recent illness. Prior similar symptoms: No PFSH PFSH Medical History (Updated 03/07/21 @ 18:[address] Sunil Acosta, DO) Alcohol abuse Anxiety and depression Cellulitis of left lower extremity COPD (chronic obstructive pulmonary disease) Former tobacco use HTN (hypertension) Home Medications NK 03/07/21 [History Last Taken Unknown] Allergy/AdvReac Type Severity Reaction Status Date / Time No Known Allergies Allergy Verified 12/11/19 09:37 Social History (Updated 12/12/19 @ 13:[address] Luca Sears MD) Smoking Status: Former smoker ROS ROS ED Constitutional Constitutional ED: Reports systems reviewed and no addt'l complaints, except as documented; Denies body ache(s), change in weight or chills Eyes Eyes: Denies acute decrease in peripheral vision, change in vision, double vision or loss of vision ENT ENT ED: Reports none; Denies ear pain, lip swelling, loss taste/smell, neck pain, otalgia or sore throat Cardiovascular Cardiovascular: Reports none; Denies abdominal pain, chest pain with activity, leg edema, lightheadedness, palpitations, rapid heart rate or syncope Respiratory/Chest Respiratory/Chest: Reports none and dyspnea; Denies change in mental status, dry cough, hemoptysis, shortness of breath at rest or shortness of breath with exertion Gastrointestinal Gastrointestinal: Reports none; Denies abdominal pain, change in stool charac ter, diarrhea, hematemesis, hematochezia, melena, rectal bleeding or vomiting Genitourinary Genitourinary ED: Reports none; Denies abdominal discomfort, anuria, dysuria, genital pain or polyuria Musculoskeletal Musculoskeletal: Reports none and other Details: Right leg swelling ; Denies arthralgias, back pain, difficulty walking, extremity pain, muscle weakness or myalgias Integumentary Reports none; Denies abscess or rash Neurologic Neurologic: Reports none; Denies abnormal gait, confusion, focal weakness, frequent falls, headache(s), loss of vision, numbness, paresthesias, radicular pain, vertigo or weakness Psychiatric Psychiatric: Reports systems reviewed and no addt'l complaints, except as documented and none; Denies behavioral changes, confusion, difficulty concentrating, hallucinations, suicidal ideation, tactile hallucinations or visual hallucinations Endocrine Endocrinology: Denies none, cold intolerance, excessive sweating, fatigue or heat intolerance Hematologic/Lymphatic Hematologic/Lymphatic: Reports none; Denies anemia, easy bleeding or easy bruising Allergic/Immunologic Allergic/Immunologic ED: Denies as per HPI, none, lip swelling, mouth swelling, throat swelling, tongue swelling or hives EXAM Physical Exam Const Vital Signs: 03/07/21 15:03 03/07/21 15:08 03/07/21 15:26 Temperature 97.7 F L Temperature Source Temporal Pulse Rate 115 H Respiratory Rate 24 H 24 H Respiratory Effort Normal Respiratory Depth Normal Respiratory Pattern Normal Blood Pressure 154/116 H Blood Pressure Mean 128 Pulse Ox 88 94 Oxygen Delivery Method Room Air Nasal Cannula Room Air Oxygen Flow Rate (L/min) 2 03/07/21 15:55 03/07/21 16:18 03/07/21 17:09 Temperature 97.9 F 97.8 F Temperature Source Temporal Temporal Pulse Rate 100 92 102 H Respiratory Rate 10 L 22 H 20 H Respiratory Effort Respiratory Depth Respiratory Pattern Bradypnea Blood Pressure 154/95 H 148/104 H Blood Pressure Mean 114 118 Pulse Ox 95 96 Oxygen Delivery Method Nasal Cannula Nasal Cannula Oxygen Flow Rate (L/min) 2 2 Positive well nourished and well developed General Appearance ED: well developed and NAD HEENT Reports TM's clear and moist mucous membranes normocephalic and atraumatic; Negative for trauma or tenderness Tympanic Membrane ED: Yes TM's clear Eyes PERRL and EOMs intact bilaterally General Eye ED: Negative for pale conjunctiva or scleral icterus Neck no lymphadenopathy, supple and no JVD General: Negative for tenderness Chest Wall inspection of chest normal and palpation of chest normal Chest: Negative for tenderness Resp normal respiratory effort and clear to auscultation bilaterally Resp Narrative: Diminished breath sounds bilaterally with some faint expiratory wheezes bilaterally. Mild tachypnea. No accessory muscle use or retractions. Effort and Inspection: Negative for respiratory distress or pain with movement Auscultation: wheezes; Negative for rhonchi or diminished lung sounds Cardio regular rate, regular rhythm, S1 normal heart sound, S2 normal heart sound and no murmurs Peripheral Pulses: pulses 2+ throughout GI normal to inspection, nondistended, normoactive bowel sounds, soft to palpation, non-tender, non-distended and no masses Back/Spine no CVA tenderness and no thoracic nor lumbar tenderness Extremity normal to inspection Extremity Narrative: There is +2 edema of right lower extremity which is asymmetric when compared with to the left lower extremity. General Extremety ED: Yes edema General Extremity: edema Neuro oriented x3, CN's II-XII intact bilaterally, no sensory deficits noted and gait normal Sensorium / Orientation: awake, alert, oriented to person, oriented to place and oriented to time Motor Exam: strength 5/5 throughout and strength abnormal Psych mental status grossly normal Skin no rashes or lesions noted and no wounds MDM MDM MDM Narrative Medical decision making narrative: Case discussed with hospitalist will evaluate patient for admission. Patient had A. fib RVR. Feel patient likely has a COPD exacerbation. Patient was hypoxic on arrival. Patient will receive some Lasix IV as well for suspected mild CHF given interpretation of chest x-ray and elevated BNP and given his A. fib RVR. Lab Data Attestation: I reviewed the patient's lab results. Labs: Laboratory Results - last 24 hr 03/07/21 03/07/21 03/07/21 15:38 15:38 15:38 WBC 6.8 RBC 5.10 Hgb 16.8 H Hct 51.6 MCV 101.2 H MCH 32.9 H MCHC 32.6 RDW Std Deviation 54.2 H RDW Coeff of Eric 14.5 Plt Count 162 MPV 9.9 Immature Gran % (Auto) 0.600 Neut % (Auto) 41.6 L Lymph % (Auto) 34.9 [place] % (Auto) 12.9 H Eos % (Auto) 8.2 H Baso % (Auto) 1.8 H Absolute Neuts (auto) 2.8 Absolute Lymphs (auto) 2.38 Nucleated RBC % 0 D-Dimer Quant (PE/DVT) Sodium 139 Potassium 3.5 Chloride 104 Carbon Dioxide 26.0 Anion Gap 9 BUN 5 L Creatinine 0.49 L Estim Creat Clear Calc 61.86 Est GFR (MDRD) Af Amer 210 Est GFR (MDRD) Non-Af 174 BUN/Creatinine Ratio 10.1 Glucose 91 Lactic Acid Calcium 8.5 Total Bilirubin 1.10 H AST 43 H ALT 18 Alkaline Phosphatase 149 H Troponin I High Sens 19 B-Natriuretic Peptide 154.1 H Total Protein 7.5 Albumin 2.7 L Globulin 4.8 H Albumin/Globulin Ratio 0.6 L 03/07/21 03/07/21 03/07/21 15:49 15:49 16:46 WBC RBC Hgb Hct MCV MCH MCHC RDW Std Deviation RDW Coeff of Eric Plt Count MPV Immature Gran % (Auto) Neut % (Auto) Lymph % (Auto) [place] % (Auto) Eos % (Auto) Baso % (Auto) Absolute Neuts (auto) Absolute Lymphs (auto) Nucleated RBC % D-Dimer Quant (PE/DVT) 1.44 H* Sodium Potassium Chloride Carbon Dioxide Anion Gap BUN Creatinine Estim Creat Clear Calc Est GFR (MDRD) Af Amer Est GFR (MDRD) Non-Af BUN/Creatinine Ratio Glucose Lactic Acid Cancelled 1.7 Calcium Total Bilirubin AST ALT Alkaline Phosphatase Troponin I High Sens B-Natriuretic Peptide Total Protein Albumin Globulin Albumin/Globulin Ratio Radiography Chest X-Ray - ED: 1 View Diagnostic Testing: Radiology Impression Chest X-Ray 03/07/21 16:09 IMPRESSION: Cardiomegaly with central pulmonary venous congestion. Electronically Signed: Jluis Conway MD at 16:43 EDT Tel , Service support , Chest CTA 03/07/21 16:31 IMPRESSION: 1. No pulmonary embolism. 2. Severe emphysema. 3. Small right effusion. 4. Severe cirrhosis. 5. Cardiomegaly, coronary artery disease. Electronically Signed: Faiza Pineda MD at 17:43 EDT Tel , Service support , 1 view chest x-ray obtained interpreted by myself as mild cardiomegaly otherwise nothing acute. Patient was thought to have some central pulmonary venous congestion. EKG Initial EKG: Attestation: I personally reviewed and interpreted this EKG as follows: Comments: Atrial fibrillation with rapid ventricular response with a rate of 114 bpm Prior: No Prior Discharge Plan Triage Chief Complaint: Shortness of Breath ED Provider: Sunil Acosta Dx/Rx/DC Orders Clinical Impression: Atrial fibrillation with rapid ventricular response, CHF (congestive heart failure), COPD (chronic obstructive pulmonary disease), Hypoxemia Prescriptions: No Action NK RF: 0 Primary Care Provider: Paulo Padilla Referrals: Paulo Padilla MD [Primary Care Provider] - Disposition Disposition: Acute Care Hospital [facility]
[2021-03-07 15:51] LABS: Absolute Lymphocyte Count 2.38 X10^3/uL (0.83-4.51); Absolute Neutrophil Count 2.8 X10^3/uL (2.0-7.7); Basophil# 0.12 X10^3/uL; Basophil% 1.8 % (0-1); Eosinophil# 0.56 X10^3/uL; Eosinophils% 8.2 % (0-5); Hematocrit 51.6 % (40-54); Hemoglobin 16.8 g/dL (13.0-16.5); Lymphocyte # 2.38 X10^3/ul (0.83-4.51); Lymphocyte % 34.9 % (19-41); Mean Corp Hgb Conc 32.6 g/dL (32-36); Mean Corpuscular Hgb 32.9 pg (27.0-32.0); Mean Corpuscular Volume 101.2 fL (80-94); Mean Platelet Vol. 9.9 fl (6.2-12.0); Monocyte# 0.88 X10^3/uL; Monocyte% 12.9 % (0-10); NRBC Flagged by Analyzer 0 % (0-5); Neutrophil # 2.84 X10^3/uL (2.7-7.7); Neutrophil % 41.6 % (47-70); Platelet Count 162 K/mm3 (150-450); RBC Distribution Width CV 14.5 % (11.6-14.6); RBC Distribution Width SD 54.2 fl (35.1-43.9); White Blood Count 6.8 K/mm3 (4.4-11.0)
[2021-03-07] MEDS: Ipratropium/Albuterol Sulfate 3 ML AMPUL.NEB INHALATION (15:53)
[2021-03-07 15:55] VITALS: PULSE 100; RESP 10
--- NOTE | 2021-03-07 16:09 | RAD_ITS ---
INDICATION: hypoxia EXAMINATION/TECHNIQUE: X-RAY - XR Chest 1 View COMPARISON: 11/30/2019. FINDINGS: Central pulmonary venous congestion. Tortuous and calcified thoracic aorta. The heart is mildly enlarged. No pleural effusion or pneumothorax. Degenerative changes of the thoracic spine. RAD/Chest 1 View (Portable) IMPRESSION: Cardiomegaly with central pulmonary venous congestion. Electronically Signed: Jluis Conway MD at 16:43 EDT Tel , Service support ,
[2021-03-07 16:11] LABS: ALB/GLOB Ratio 0.6 RATIO (0.9-2.4); AST(SGOT) 43 U/L (15-37); Alanine Aminotransfer ALT/SGPT 18 U/L (16-61); Albumin, Serum 2.7 g/dL (3.2-5.0); Alkaline Phosphatase 149 U/L (45-117); Anion Gap 9 (5-15); BUN 5 mg/dL (7-18); BUN/Creat Ratio 10.1 RATIO (10-20); Calcium,Total 8.5 mg/dL (8.5-10.1); Chloride 104 mmol/L (98-107); Creatinine, Serum 0.49 mg/dL (0.70-1.30); EST Glomerular Filtration Rate 174 mL/min (>60); Est Glom Filt Rate - Afr Amer 210 mL/min (>60); Estimated Creatinine Clearance 61.86 ml/min; Globulin 4.8 g/dL (2.2-4.2); Glucose 91 mg/dL (74-106); Potassium 3.5 mmol/L (3.5-5.1); Protein, Total 7.5 g/dL (6.4-8.2); Sodium Level 139 mmol/L (136-145); Troponin-I HS 19 pg/mL (3.0-78.0)
[2021-03-07] MEDS: 0.9% Normal Saline 1,000 ML 150 ML IV (16:17)
[2021-03-07 16:18] VITALS: BP 154/95; PULSE 92; RESP 22; TEMP 36.6; O2SAT 95
[2021-03-07 16:24] LABS: D-Dimer Quantitative (DVT/PE) 1.44 FEU/ug/m (0.27-0.49)
[2021-03-07 16:31] LABS: BNP,B-Type NATRIURETIC PEPTIDE 154.1 pg/mL (0-100)
--- NOTE | 2021-03-07 16:31 | CT_ITS ---
STUDY: CTA CHEST REASON FOR EXAM: Male, 76 years old. Dyspnea RADIATION DOSAGE (If Supplied By Facility): CTDIvol = ( 15.44 ) mGy, DLP = ( 408.94 ) mGycm TECHNIQUE: The examination was performed with the intravenous administration of IV 100mL Isovue-370. Post-processing of the angiographic images was performed, with multiplanar reformation and 3D reconstruction. Individualized dose optimization techniques were used for this CT. COMPARISON: None. FINDINGS: Lungs are severely emphysematous with right lower lobe atelectasis. There are small right and minimal left pleural effusions. There is no pulmonary embolism. There is moderate chronic pulmonary arterial hypertension. The heart is enlarged. Right ventricle and right atrium are severely enlarged. Left atrium is moderately enlarged. Left ventricle is upper limits of normal. Pericardium is normal. Coronary arteries are severely diseased. There are increased right-sided heart pressures. There is increased number and size of mediastinal lymph nodes in all locations measuring up to 1.6 cm. Liver is end-stage cirrhotic and severely shrunken. 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 Upper abdominal contents are not well evaluated. There is anasarca. Osseous structures are intact with age-related spinal change. CT/CTA Chest W/WO Contrast IMPRESSION: 1. No pulmonary embolism. 2. Severe emphysema. 3. Small right effusion. 4. Severe cirrhosis. 5. Cardiomegaly, coronary artery disease. Electronically Signed: Faiza Pineda MD at 17:43 EDT Tel , Service support ,
[2021-03-07 17:09] VITALS: BP 148/104; PULSE 102; RESP 20; TEMP 36.6; O2SAT 96
[2021-03-07 17:19] LABS: Lactic Acid 1.7 mmol/L (0.4-1.9)
--- NOTE | 2021-03-07 18:57 | ED.RN ---
pt was seen in room [address], pt removed iv and left, pt stated I'm leaving Dr. Acosta and Neftali Garcia RN informed of same.
== END 2021-03-07 19:05 | disposition left against medical advice (07) ==
PROVIDERS: Emergency Provider Emergency Medicine; PCP Family Medicine
DX: I48.91 Unspecified atrial fibrillation (principal); I11.0 Hypertensive heart disease with heart failure; I50.9 Heart failure, unspecified; J43.9 Emphysema, unspecified; R09.02 Hypoxemia; Z91.14 Patient's other noncompliance with medication regimen; Z79.899 Other long term (current) drug therapy; Z87.891 Personal history of nicotine dependence; Z53.29 Procedure and treatment not carried out because of patient's decision for other reasons
CPT/HCPCS: 71045; 71275; 80048; 80053; 83605; 83880; 84484; 85025; 85379; 87040; 87426; 93005; 94640; 96360; 96361; 99284; J7030; Q9967; A4216

== ENCOUNTER 2021-03-16 17:51 | Inpatient (IN) | payer OTHER, MEDICARE, SELFPAY ==
[2021-03-16] VITALS (9 sets, daily range): BP systolic 124–146; BP diastolic 70–105; PULSE 88–101; RESP 14–21; TEMP 36.1–36.9; O2SAT 90–94; BMI 27.3; BMI 26.5
--- NOTE | 2021-03-16 18:45 | RAD_ITS ---
INDICATION: SOB EXAMINATION/TECHNIQUE: X-RAY - XR Chest 2 Views COMPARISON: 03/07/2021. FINDINGS: Increased interstitial markings. Tortuous and calcified thoracic aorta. The heart is mildly enlarged. No pleural effusion or pneumothorax. No acute osseous abnormalities. RAD/Chest PA and Lateral IMPRESSION: Increased interstitial markings may represent edema and/or infection. Cardiomegaly. Electronically Signed: Jluis Conway MD at 19:14 EDT Tel , Service support ,
--- NOTE | 2021-03-16 19:29 | EKG12_ITS ---
Test Reason : AM EKG Blood Pressure : / mmHG Vent. Rate : 101 BPM Atrial Rate : 081 BPM P-R Int : 000 ms QRS Dur : 176 ms QT Int : 446 ms P-R-T Axes : 000 091 -25 degrees QTc Int : 578 ms Atrial fibrillation Right bundle branch block T wave abnormality, consider inferolateral ischemia Abnormal ECG When compared with ECG of 07-MAR-2021 15:13, No significant change was found Confirmed by WILLIAM CARLSON, MILI ([id number]), state editor LAKESHA NELSON ([id number]) on 03/18/2021 1:51:24 PM Referred By: WILFRED Confirmed By:MILI THOMAS MD
[2021-03-16] MEDS: Ipratropium/Albuterol Sulfate 3 ML AMPUL.NEB INHALATION (19:44)
--- NOTE | 2021-03-16 19:54 | EDS_ITS ---
HPI History of Present Illness Chief Complaint: Shortness of Breath Narrative Narrative: Patient presenting for evaluation secondary to shortness of breath. Patient has an underlying history of hypertension, atrial fibrillation, COPD, and chronic medication noncompliance. Patient was actually in the hospital recently secondary to a COPD exacerbation as well as atrial fibrillation with RVR. He signed himself out AGAINST MEDICAL ADVICE. Patient is stating that today he is here because my son is concerned about my breathing. Patient does state that he has some increasing shortness of breath recently. He has mild nonproductive cough he denies any chest pain denies any fevers associated with it. He does report that he has some lower extremity edema. Patient states that he is not currently on any medications for his atrial fibrillation, he was supposed to be on them in the past but I ran out so I stopped taking them. [facility] Medical History (Updated 03/16/21 @ 21:[address] Michael Camacho MD) Alcohol abuse Anxiety and depression Cellulitis of left lower extremity COPD (chronic obstructive pulmonary disease) Former tobacco use HTN (hypertension) Home Medications NK 03/07/21 [History Last Taken Unknown] Allergy/AdvReac Type Severity Reaction Status Date / Time No Known Allergies Allergy Verified 03/16/21 17:53 Social History Smoking Status: Former smoker ROS ROS ED Constitutional Constitutional ED: Denies chills or fever(s) ENT ENT ED: Denies rhinorrhea Cardiovascular Cardiovascular: Reports other Details: Lower extremity edema Respiratory/Chest Respiratory/Chest: Reports cough and dyspnea Gastrointestinal Gastrointestinal: Denies abdominal pain, diarrhea, nausea or vomiting Genitourinary Genitourinary ED: Denies dysuria or hematuria Musculoskeletal Musculoskeletal: Denies back pain Integumentary Denies rash Neurologic Neurologic: Denies paresthesias or weakness Psychiatric Psychiatric: Denies depression Endocrine Endocrinology: Denies fatigue Allergic/Immunologic Allergic/Immunologic ED: Denies urticaria EXAM Physical Exam Const Vital Signs: 03/16/21 17:54 03/16/21 19:44 03/16/21 19:48 Temperature 97.7 F L Temperature Source Temporal Pulse Rate 97 94 91 Respiratory Rate 20 H 18 21 H Respiratory Effort Respiratory Depth Respiratory Pattern Blood Pressure 146/105 H 144/91 H Blood Pressure Mean 118 108 Pulse Ox 90 92 Oxygen Delivery Method Room Air Room Air 03/16/21 19:52 03/16/21 20:08 03/16/21 21:15 Temperature 97 F L Temperature Source Temporal Pulse Rate 94 93 Respiratory Rate 20 H 15 Respiratory Effort Short of Breath Respiratory Depth Normal Respiratory Pattern Normal Blood Pressure 133/91 H 124/70 H Blood Pressure Mean 105 88 Pulse Ox 91 91 Oxygen Delivery Method Room Air Room Air Room Air Positive well nourished and well developed General Appearance ED: well developed and NAD HEENT Reports moist mucous membranes Negative for trauma or tenderness Eyes EOMs intact bilaterally Neck no lymphadenopathy, supple and no JVD Chest Wall inspection of chest normal Resp normal respiratory effort Resp Narrative: Poor air movement is noted throughout the lung garcia without increased respiratory effort Cardio regular rate, no murmurs and peripheral pulses 2+ throughout Cardio Narrative: Irregular with a regular rate GI normal to inspection, nondistended, normoactive bowel sounds, non-tender and no masses Palpation: soft Back/Spine normal to inspection Extremity normal to inspection Extremity Narrative: 1+ edema of the lower extremities, slightly increased on the right with comparison to the left General Extremety ED: Yes edema; Negative for tenderness General Extremity: edema Neuro oriented x3 and no sensory deficits noted Sensorium / Orientation: alert Motor Exam: strength 5/5 throughout Psych mental status grossly normal Skin no rashes or lesions noted MDM MDM MDM Narrative Medical decision making narrative: Patient presented secondary to shortness of breath. Chest x-ray by my personal review as well as radiology demonstrates int erstitial markings consistent with congestive heart failure which would fit the patient's story with edema. CBC was unremarkable, no leukocytosis or shift. Chemistry shows normal renal function high-sensitivity troponin modestly elevated at 40. I went back and checked on the patient again he has resting pulse ox is in the high 80s, and has congestive heart failure do believe that he requires admission. Patient was given a dose of Lasix, discussed with the hospitalist patient will be admitted. Lab Data Labs: Laboratory Results - last 24 hr 03/16/21 03/16/21 19:50 19:50 WBC 6.9 RBC 5.08 Hgb 16.6 H Hct 50.8 MCV 100.0 H MCH 32.7 H MCHC 32.7 RDW Std Deviation 55.2 H RDW Coeff of Eric 14.8 H Plt Count 89 L MPV 10.2 Immature Gran % (Auto) 0.400 Neut % (Auto) 65.1 Lymph % (Auto) 14.5 L [place] % (Auto) 19.1 H Eos % (Auto) 0.3 Baso % (Auto) 0.6 Absolute Neuts (auto) 4.5 Absolute Lymphs (auto) 0.99 Nucleated RBC % 0 Differential Comment SCANNED Sodium 134 L Potassium 3.4 L Chloride 99 Carbon Dioxide 29.0 Anion Gap 6 BUN 7 Creatinine 0.72 Estim Creat Clear Calc 59.85 Est GFR (MDRD) Af Amer 136 Est GFR (MDRD) Non-Af 113 BUN/Creatinine Ratio 9.7 L Glucose 100 Calcium 8.6 Troponin I High Sens 40 Radiography Chest X-Ray - ED: 1 View, Read by ED Physician and CHF Diagnostic Testing: Radiology Impression Chest X-Ray 03/16/21 18:45 IMPRESSION: Increased interstitial markings may represent edema and/or infection. Cardiomegaly. Electronically Signed: Jluis Conway MD at 19:14 EDT Tel , Service support , EKG Initial EKG: Attestation: I personally reviewed and interpreted this EKG as follows: (Atrial fibrillation with a controlled ventricular rate at 94. Right bundle branch block morphology is noted with T wave inversions anterolaterally that were present on a prior EKG.) Discharge Plan Triage Chief Complaint: Shortness of Breath Other Complaint: Depression Hypertension ED Provider: Michael Camacho Dx/Rx/DC Orders Clinical Impression: CHF (congestive heart failure), Hypoxia Primary Care Provider: Paulo Padilla Disposition Disposition: Acute Care Hospital [facility] [place]
[2021-03-16 19:59] LABS: Absolute Lymphocyte Count 0.99 X10^3/uL (0.83-4.51); Absolute Neutrophil Count 4.5 X10^3/uL (2.0-7.7); Basophil# 0.04 X10^3/uL; Basophil% 0.6 % (0-1); Eosinophil# 0.02 X10^3/uL; Eosinophils% 0.3 % (0-5); Hematocrit 50.8 % (40-54); Hemoglobin 16.6 g/dL (13.0-16.5); Lymphocyte # 0.99 X10^3/ul (0.83-4.51); Lymphocyte % 14.5 % (19-41); Mean Corp Hgb Conc 32.7 g/dL (32-36); Mean Corpuscular Hgb 32.7 pg (27.0-32.0); Mean Platelet Vol. 10.2 fl (6.2-12.0); Monocyte# 1.31 X10^3/uL; Monocyte% 19.1 % (0-10); NRBC Flagged by Analyzer 0 % (0-5); Neutrophil # 4.46 X10^3/uL (2.7-7.7); Neutrophil % 65.1 % (47-70); POSITIVE COUNT YES; Platelet Count 89 K/mm3 (150-450); RBC Distribution Width CV 14.8 % (11.6-14.6); RBC Distribution Width SD 55.2 fl (35.1-43.9); Red Blood Count 5.08 M/mm3 (4.6-6.2); White Blood Count 6.9 K/mm3 (4.4-11.0)
[2021-03-16 20:09] LABS: Differential Indicated SCAN CRITERIA MET
[2021-03-16 20:21] LABS: Anion Gap 6 (5-15); BUN 7 mg/dL (7-18); BUN/Creat Ratio 9.7 RATIO (10-20); Calcium,Total 8.6 mg/dL (8.5-10.1); Chloride 99 mmol/L (98-107); Creatinine, Serum 0.72 mg/dL (0.70-1.30); EST Glomerular Filtration Rate 113 mL/min (>60); Est Glom Filt Rate - Afr Amer 136 mL/min (>60); Estimated Creatinine Clearance 59.85 ml/min; Glucose 100 mg/dL (74-106); Potassium 3.4 mmol/L (3.5-5.1); Sodium Level 134 mmol/L (136-145); Troponin-I HS 40 pg/mL (3.0-78.0)
[2021-03-16 20:38] LABS: Differential Comment SCANNED
--- NOTE | 2021-03-16 21:21 | HP.PCM.HOS_ITS ---
HPI - General General Date of Admission: 03/16/21 Date of Service: 03/16/21 Chief Complaint: Dyspnea HPI Narrative The patient is a 76 y/o M w/ PMHx: PAF, Chronic COPD, HTN, HLD, Anxiety and Depression, Former Tobacco use, EtOH abuse, Chronic Thrombocytopenia who presents to the [facility] ED on 03/16/21 with history of worsening dyspnea, worse with exertion, BL LE swelling, orthopnea prompting re-evaluation. He came back in to be evaluated secondary to family encouragement. Patient was recently seen 03/07/2021 for similar complaints and at that time had negative rapid Covid antigen and blood culture x2 has demonstrated no growth. 03/07/2021 CTPA with no PE, severe emphysematous changes, small right effusion, severe cirrhosis, evidence cardiomegaly and coronary disease. Work-up in the ED included T 97.7, heart rate 97, BP 146/105 with improvement 124/70, respiratory rate 20, 87-90% on room air, CBC with WC 6.9, hemoglobin 16.6, platelets 89 with marked shift, BMP with sodium 134, potassium 3.4 otherwise not marked appearing, high-se nsitivity troponin 40, chest x-ray with increased interstitial markings possibly edema and/or infection, cardiomegaly, EKG with rate controlled atrial fibrillation. In the ED patient administered DuoNeb therapy and IV lasix. FOR[facility] Medical History (Updated 03/16/21 @ 22:[address] Karely Frias MD) Alcohol abuse Anxiety and depression Cellulitis of left lower extremity COPD (chronic obstructive pulmonary disease) Former tobacco use HTN (hypertension) Home Medications NK 03/07/21 [History Last Taken Unknown] Allergy/AdvReac Type Severity Reaction Status Date / Time No Known Allergies Allergy Verified 03/16/21 17:53 Family History (Updated 03/16/21 @ 22:[address] Karely Frias MD) Mother Cancer Reported history of brain CA. Father Myocardial infarction Heart disease Surgical History (Updated 03/16/21 @ 22:[address] Karely Frias MD) History of surgery on arm Social History (Updated 03/16/21 @ 22:[address] Karely Frias MD) household members: none Smoking Status: Former smoker how long ago did patient quit smoking: Quit 20 years prior, prior 2 pack/day cigarette tobacco since 19. alcohol intake: current alcohol intake frequency: 3 or more drinks per day Alcohol type: beer details: Drinks 6-12 beers daily. substance use type: marijuana and other details: Uses cannabis cigarettes, rolled near daily. ROS ROS Narrative Admission Review of Systems: CONSTITUTIONAL: No weight loss, fever, chills, + weakness or fatigue. HEENT: Eyes: No visual loss, blurred vision, double vision or yellow sclerae. Ears, Nose, Throat: No hearing loss, sneezing, congestion, runny nose or sore throat. SKIN: No rash or itching, lesions, wounds. CARDIOVASCULAR: + Orthopnea, edema. No chest pain, chest pressure or chest discomfort, palpitations, syncopal events. RESPIRATORY: + shortness of breath, No marked cough or sputum, wheezing, hemoptysis. GASTROINTESTINAL: No anorexia, nausea, vomiting or diarrhea, abdominal pain, melena, BRBPR. GENITOURINARY: No dysuria, frequency, urgency or retention. NEUROLOGICAL: No headache, dizziness, syncope, paralysis, ataxia, numbness or tingling in the extremities, focal weakness, change in bowel or bladder control, seizure. MUSCULOSKELETAL: No muscle, back pain, joint pain or stiffness. HEMATOLOGIC: + anemia, bleeding or bruising. LYMPHATICS: No enlarged nodes. No history of splenectomy. PSYCHIATRIC: No history of depression or anxiety. ENDOCRINOLOGIC: No reports of sweating, cold or heat intolerance. No polyuria or polydipsia. ALLERGIES: No history of asthma, hives, eczema or rhinitis. Vital Signs Vital Signs Vital Signs: 03/16/21 17:54 03/16/21 19:44 03/16/21 19:48 Temperature 97.7 F L Temperature Source Temporal Pulse Rate 97 94 91 Respiratory Rate 20 H 18 21 H Respiratory Effort Respiratory Depth Respiratory Pattern Blood Pressure 146/105 H 144/91 H Blood Pressure Mean 118 108 Pulse Ox 90 92 Oxygen Delivery Method Room Air Room Air 03/16/21 19:52 03/16/21 20:08 03/16/21 21:15 Temperature 97 F L Temperature Source Temporal Pulse Rate 94 93 Respiratory Rate 20 H 15 Respiratory Effort Short of Breath Respiratory Depth Normal Respiratory Pattern Normal Blood Pressure 133/91 H 124/70 H Blood Pressure Mean 105 88 Pulse Ox 91 91 Oxygen Delivery Method Room Air Room Air Room Air Weight Weight: 180 lb 3.2 oz Body Mass Index (BMI) 27.3 Physical Exam Narrative Physical Examination: General: Awake, alert, oriented x 3 and cooperative, seated upright in the ED bed in no apparent distress. Skin: Normal color, normal turgor, no icterus, no cyanosis except bilateral lower extremity mild stasis disease. HEENT: AT/NC, EOMI, PERRLA, MMM, no carotid bruits, + JVD noted. Lungs: Diffusely diminished, greater bases, moderate effort, minimal rales bases, no rhonchi or wheezing. Heart: Irregular, rate controlled; no gallop, rub audible. Abdomen: Soft, NTTP, ND, mildly hyperactive BS, + HM. Extremities: No cyanosis, no clubbing, bilateral lower extremity pedal to distal zavala mild pitting edema. Neurological: Patient awake, alert, oriented as noted, cognitive function intact; pupils equally reactive to light and accommodation, cranial nerves II- XII grossly normal, moving all 4 extremities, no focal deficits, strength moderately global decrease secondary to acute presentation. Psychiatric: Affect appears fatigued otherwise normal, no acute evidence of depressive or anxiety feelings. Results Lab / Micro Data Result Diagrams: 03/16/21 19:50 03/16/21 19:50 Labs: Laboratory Results - last 24 hr 03/16/21 19:50: WBC 6.9, RBC 5.08, Hgb 16.6 H, Hct 50.8, MCV 100.0 H, MCH 32.7 H , MCHC 32.7, RDW Std Deviation 55.2 H, RDW Coeff of Eric 14.8 H, Plt Count 89 L, MPV 10.2, Immature Gran % (Auto) 0.400, Neut % (Auto) 65.1, Lymph % (Auto) 14.5 L, Sullivan % (Auto) 19.1 H, Eos % (Auto) 0.3, Baso % (Auto) 0.6, Absolute Neuts (auto) 4.5, Absolute Lymphs (auto) 0.99, Nucleated RBC % 0, Differential Comment SCANNED 03/16/21 19:50: Sodium 134 L, Potassium 3.4 L, Chloride 99, Carbon Dioxide 29.0, Anion Gap 6, BUN 7, Creatinine 0.72, Estim Creat Clear Calc 59.85, Est GFR (MDRD) Af Amer 136, Est GFR (MDRD) Non-Af 113, BUN/Creatinine Ratio 9.7 L, Glucose 100, Calcium 8.6, Troponin I High Sens 40 Radiology Impression Chest X-Ray 03/16/21 18:45 IMPRESSION: Increased interstitial markings may represent edema and/or infection. Cardiomegaly. Electronically Signed: Jluis Conway MD at 19:14 EDT Tel , Service support , Assessment & Plan Assessment/Plan (1) CHF (congestive heart failure): QUALIFIERS: Heart failure type: unspecified Heart failure chronicity: acute Qualified Code(s): I50.9 - Heart failure, unspecified (2) Hypoxia: PLAN: The patient is a 76 y/o M w/ PMHx: PAF, Chronic COPD, HTN, HLD, Anxiety and Depression, Former Tobacco use, EtOH abuse, Chronic Thrombocytopenia who presents to the [facility] ED on 03/16/21 with history of worsening dyspnea, worse with exertion, BL LE swelling, orthopnea prompting re-evaluation. 1. Acute Hypoxia secondary to Suspected Acute CHF Exacerbation, Unclear Type: Patient administered IV lasix in the ED, will admit to PCU, maintain on cardiac telemetry obtain cardiac enzyme series, obtain serial EKGs, continue IV lasix diuresis, monitor I/Os, maintain on intake restriction, continue medical therapy with cautious addition asa given thrombocytopenia with hold if worsens, hold on BB given severe COPD, hold on any ASHVIN inhibitor/ARB especially given IV Lasix usage with low normal BP currently, obtain TSH and magnesium level. Most recent ECHO noted 11/30/19 with normal LV size, moderate concentric LVH, EF 45%, moderately enlarged LA, moderately enlarged RA, unable to assess diastolic dysfunction secondary to arrhythmia, moderate focal AV thickening, mild aortic stenosis therefore repeat requested given > 1 year out. No marked WBC elevation or L shift, BNP and procalcitonin requested. 2. Hypokalemia: Admission K+ 3.4, magnesium level requested, supplementation given, repeat level in AM. 3. Chronic thrombocytopenia: Likely secondary to alcohol abuse history admission platelets 89, prior baseline appears 108-160s primarily, will cautiously administer chemoprophylaxis, repeat CBC in AM. 4. Chronic hyponatremia, mild: Admission sodium 134, similar to prior, likely secondary to alcohol abuse history, repeat CMP in a.m. 5. EtOH Abuse with appearance Cirrhotic disease: Hepatic profile requested. Patient notes routine consumption of 6-12 beers per day. Will maintain on CIWA protocol, MVI, thiamine and folic acid. Case management consulted. 6. Chronic COPD: Will maintain on oxygen with wean as tolerated to room air, continue ATC duonebs, PRN albuterol, HOB, IS parameters. 7. PAF: Not on rate or rhythm agent, currently rate controlled, hold on any anticoagulation given chronic thrombocytopenia with alcohol abuse history, hold on any beta-richie given severe COPD/emphysema, continue to monitor and alter as needed. 8. Hypertension: Not on any regimen, IV Lasix currently as noted, hold on any further agent given low normal BP currently, as needed IV hydralazine 9. Hyperlipidemia: Not on statin therapy, FLP in a.m. requested with pending hepatic profile given cirrhotic appearance prior to any automatic statin addition. 10. Former tobacco use: Encourage continued tobacco cessation. 11. DVT prophylaxis: SCDs, cautiously heparin with hold pending repeat Plts especially given usage low dose ASA secondary to #1. 12. CODE status: Patient does not have healthcare power of net application support specialist nor living will. Family present, son interested in information therefore referred him to discuss these items in a.m. with case management/social work for assistance. Discussed CODE status at length including difference between FULL code, DNR-CCA and DNR-CC status. Following discussions about the differences in these status, requested Full Code status. Advanced Care Planning Face to Face Time: 16 minutes. Charges/Coding Visit Charges Inpatient E&M: 54207 Init Hosp L3 Procedures Hospitalists Procedures: 81843 Advncd Care Plan 30 Min
[2021-03-16 22:10] LABS: AST(SGOT) 41 U/L (15-37); Alanine Aminotransfer ALT/SGPT 16 U/L (16-61); Albumin, Serum 2.5 g/dL (3.2-5.0); Alkaline Phosphatase 84 U/L (45-117); BNP,B-Type NATRIURETIC PEPTIDE 529.8 pg/mL (0-100); Bilirubin, Direct 1.02 mg/dL (0.00-0.30); Globulin 4.3 g/dL (2.2-4.2); Magnesium 1.6 mg/dL (1.6-2.6); Phosphorus 2.8 mg/dL (2.5-4.9); Protein, Total 6.8 g/dL (6.4-8.2)
[2021-03-16] MEDS: Furosemide 40 MG/4 ML Vial IV (22:14)
--- NOTE | 2021-03-16 22:38 | ECHOD_ITS ---
Reason For Study: CHF Procedure This was a 2D Doppler, Color Flow transthoracic echocardiogram. Exam performed portable in patient room. Left Ventricle Normal LV size. Moderate concentric left ventricular hypertrophy. Left ventricular systolic function is normal. The estimated ejection fraction is 55 %. No regional wall motion abnormalities noted. Right Ventricle Mildly dilated right ventricle. Moderate global right ventricular systolic dysfunction. Atria The left atrium is moderately enlarged. The right atrium is moderately enlarged. Mitral Valve Normal mitral valve. Tricuspid Valve Normal tricuspid valve. Moderate (2+) tricuspid valve insufficiency. Pulmonary artery systolic pressure is 45 mmHg. Aortic Valve Trisinus/trileaflet aortic valve. Moderate focal aortic valve calcification. Peak aortic valve gradient 23 mmHg. Mean aortic valve gradient 14 mmHg. Mild (1+) aortic valve insufficiency. Pulmonic Valve Normal pulmonic valve. Great Vessels Normal aortic root. The pulmonary artery is normal size. Inferior vena cava collapse with respiration. Pericardium/Pleural No pericardial effusion. MMode/2D Measurements & Calculations LVIDd: 5.1 cm IVSd: 1.3 cm LVOT diam: 2.0 cm LVIDs: 3.7 cm LVPWd: 1.3 cm LVOT area: 3.0 cm2 RVDd: 4.7 cm FS: 27.9 % Ao root diam: 4.4 cm LAV(MOD-bp): 84.6 ml LVAd ap4: 28.3 cm2 LAV(MOD-bp) Indexed: 43.9 ml/m2 LVLd ap4: 7.7 cm LAV(MOD-sp2): 82.6 ml EDV(MOD-sp4): 83.9 ml LAV(MOD-sp4): 81.6 ml EDV(sp4-el): 88.1 ml LVAs ap4: 15.4 cm2 LVLs ap4: 6.5 cm ESV(MOD-sp4): 30.0 ml ESV(sp4-el): 31.1 ml EF(MOD-sp4): 64.2 % EF(sp4-el): 64.7 % LVAd ap2: 30.1 cm2 SV(MOD-sp4): 53.8 ml SV(MOD-sp2): 41.4 ml LVLd ap2: 8.4 cm EDV(MOD-sp2): 91.3 ml EDV(sp2-el): 91.3 ml LVAs ap2: 19.8 cm2 LVLs ap2: 6.6 cm ESV(MOD-sp2): 49.8 ml ESV(sp2-el): 50.3 ml EF(MOD-sp2): 45.4 % SV(sp4-el): 57.0 ml LA dimension(2D): 5.6 cm LA A4 area: 26.5 cm2 RA A4 area: 28.0 cm2 Doppler Measurements & Calculations Ao V2 max: 239.5 cm/sec AI max lupe: 354.0 cm/sec LV V1 max: 82.7 cm/sec Ao max P.3 mmHg AI max P.1 mmHg LV V1 max P.7 mmHg Ao V2 mean: 176.4 cm/sec LV V1 mean P.6 mmHg Ao mean P.9 mmHg AI dec slope: 131.9 cm/sec2 LV V1 mean: 60.2 cm/sec Ao V2 VTI: 41.0 cm AI P1/2t: 785.7 msec LV V1 VTI: 15.0 cm MARYBETH(I,D): 1.1 cm2 MARYBETH(V,D): 1.0 cm2 SV(LVOT): 45.5 ml PA V2 max: 90.4 cm/sec PI end-d lupe: 139.1 cm/sec TR max lupe: 312.8 cm/sec TR max P.2 mmHg ECHO/Echo Complete Interpretation Summary Normal LV size. Moderate concentric left ventricular hypertrophy. Left ventricular systolic function is normal. The estimated ejection fraction is 55 %. Moderate focal aortic valve calcification. Mild (1+) aortic valve insufficiency. Mean aortic valve gradient 14 mmHg. Ordering Physician: Karely Frias Referring Physician: DWIGHT RENDON Performed By: Marlee Sethi RDCS, RVT
[2021-03-16] MEDS: Heparin Injection (Vial) 5,000 UNIT/ML VIAL 5000 UNIT SC (22:57)
[2021-03-16] MEDS: Potassium Chloride Oral Tablet 20 MEQ 40 MEQ PO (22:57)
[2021-03-16 23:05] LABS: Alcohol, Blood (Medical)-Serum < 3.0 mg/dL
[2021-03-16 23:27] LABS: Procalcitonin 0.06 ng/mL (0.00-0.09)
[2021-03-17] VITALS (12 sets, daily range): BP systolic 112–141; BP diastolic 68–91; PULSE 74–103; RESP 14–18; TEMP 36.6–36.8; O2SAT 91–95
[2021-03-17 00:08] LABS: Troponin-I HS 36 pg/mL (3.0-78.0)
[2021-03-17] MEDS: Ipratropium/Albuterol Sulfate 3 ML AMPUL.NEB INHALATION ×4 (00:42→19:05)
[2021-03-17 02:35] LABS: Absolute Lymphocyte Count 1.05 X10^3/uL (0.83-4.51); Absolute Neutrophil Count 4.2 X10^3/uL (2.0-7.7); Basophil# 0.04 X10^3/uL; Basophil% 0.6 % (0-1); Eosinophil# 0.05 X10^3/uL; Eosinophils% 0.8 % (0-5); Hematocrit 49.8 % (40-54); Hemoglobin 16.7 g/dL (13.0-16.5); Lymphocyte # 1.05 X10^3/ul (0.83-4.51); Lymphocyte % 16.4 % (19-41); Mean Corp Hgb Conc 33.5 g/dL (32-36); Mean Corpuscular Hgb 32.7 pg (27.0-32.0); Mean Corpuscular Volume 97.5 fL (80-94); Mean Platelet Vol. 10.1 fl (6.2-12.0); Monocyte# 1.05 X10^3/uL; Monocyte% 16.4 % (0-10); NRBC Flagged by Analyzer 0 % (0-5); Neutrophil # 4.17 X10^3/uL (2.7-7.7); Neutrophil % 65.3 % (47-70); POSITIVE COUNT YES; Platelet Count 81 K/mm3 (150-450); RBC Distribution Width CV 14.8 % (11.6-14.6); RBC Distribution Width SD 53.6 fl (35.1-43.9); Red Blood Count 5.11 M/mm3 (4.6-6.2); White Blood Count 6.4 K/mm3 (4.4-11.0)
[2021-03-17 02:49] LABS: Troponin-I HS 39 pg/mL (3.0-78.0)
[2021-03-17 03:27] LABS: ALB/GLOB Ratio 0.5 RATIO (0.9-2.4); AST(SGOT) 40 U/L (15-37); Alanine Aminotransfer ALT/SGPT 14 U/L (16-61); Albumin, Serum 2.2 g/dL (3.2-5.0); Alkaline Phosphatase 81 U/L (45-117); Anion Gap 7 (5-15); BUN 7 mg/dL (7-18); BUN/Creat Ratio 12.9 RATIO (10-20); Calcium,Total 7.9 mg/dL (8.5-10.1); Chloride 99 mmol/L (98-107); Cholesterol 89 mg/dL (200); Creatinine, Serum 0.54 mg/dL (0.70-1.30); EST Glomerular Filtration Rate 156 mL/min (>60); Est Glom Filt Rate - Afr Amer 189 mL/min (>60); Estimated Creatinine Clearance 59.85 ml/min; Globulin 4.4 g/dL (2.2-4.2); Glucose 93 mg/dL (74-106); High Density Lipoprotein 51 mg/dL; Potassium 3.1 mmol/L (3.5-5.1); Protein, Total 6.6 g/dL (6.4-8.2); Sodium Level 134 mmol/L (136-145); Thyroid Stim Hormone (TSH) 3.11 uIU/mL (0.358-3.74); Triglycerides 54 mg/dL; Very Low Density Lipoprotein 11 mg/dL (5-40)
[2021-03-17] MEDS: 0.9% Saline Lock 10 ML Syringe IV (05:16)
--- NOTE | 2021-03-17 05:55 | EKG12_ITS ---
Test Reason : SOB Blood Pressure : / mmHG Vent. Rate : 094 BPM Atrial Rate : 122 BPM P-R Int : 000 ms QRS Dur : 174 ms QT Int : 452 ms P-R-T Axes : 000 091 046 degrees QTc Int : 565 ms Atrial fibrillation Right bundle branch block T wave abnormality, consider lateral ischemia Abnormal ECG Confirmed by JOSE ALBERTO CARLSON, TIM ([id number]), sports editor VICKI BROTHERS ([id number]) on 03/19/2021 9:56:30 AM Referred By: MR Confirmed By:TIM ABRAMS MD
[2021-03-17] MEDS: Aspirin E.C. 81 MG Tablet PO (08:45)
[2021-03-17] MEDS: Multivitamins,Ther W-Minerals Tablet 1 TABLET PO (08:46)
[2021-03-17] MEDS: Thiamine Hydrochloride 100 MG Tablet PO ×2 (08:46→17:53)
[2021-03-17] MEDS: Folic Acid 1 MG Tablet PO (08:46)
[2021-03-17] MEDS: Famotidine 20 MG Tablet PO (09:36)
[2021-03-17] MEDS: Potassium Chloride Oral Tablet 20 MEQ 40 MEQ PO (09:37)
[2021-03-17] MEDS: Furosemide 40 MG/4 ML Vial IV ×2 (09:40→17:53)
[2021-03-17] MEDS: Heparin Injection (Vial) 5,000 UNIT/ML VIAL 5000 UNIT SC ×2 (09:53→21:16)
--- NOTE | 2021-03-17 11:00 | CASEMGMT ---
RN VAIBHAV Face to Face with patient for initial transition planning/care coordination assessment. RN CM introduced self and role at [facility]. Patient lying in bed, alert and oriented. Patient willing to participate in assessment and is able to answer all questions appropriately. Care providers, pharmacy, and demographics verified. Patient wishes to discharge home, denies need for home health at this time. Patient states he has no further needs or concerns at this time. CM to follow for discharge planning needs that may arise. PCP: Valerie Specialists: none Preferred Pharmacy: [facility] Insurance: [place], [facility] Prescription Benefit: yes Living Will/HPOA: none LNOK:son Living Arrangements: Patient lives alone in a single story home with 2 steps to enter the home. Patient is independent at home. Transportation: self/son DME/HHC: Patient denies DME or previous HHC. Patient states he drinks 6 beers a day and denied want resources for alcohol cessation Disposition Plan: Patient to discharge home with family support and follow-up plans in place. Flora WILKINSON, RN, CM
--- NOTE | 2021-03-17 12:58 | PN_ITS ---
Documented by User: Mihaela Carney NP-Yuri 03/17/21 13:16 Subjective Subjective Patient seen and examined. Patient denies any needs at this time. Patient currently undergoing echocardiogram, student nurse at bedside. Objective Data Objective Data Vital Signs: Vital Signs Temp Pulse Resp BP Pulse Ox 98.0 F 91 16 116/68 91 03/17/21 10:30 03/17/21 12:25 03/17/21 12:25 03/17/21 10:30 03/17/21 10:30 Oxygen Flow Rate (L/min) 2 Oxygen Delivery Method Nasal Cannula Weight: 173 lb 11.588 oz Body Mass Index (BMI) 26.5 Intake & Output: Intake and Output for Last 24 Hours 03/15/21 03/16/21 03/17/21 23:59 23:59 23:59 Intake Total 224 / 224 Output Total 500 / 500 Balance -276 / -276 Lab / Micro Data Result Diagrams: 03/17/21 02:25 03/17/21 02:25 Labs: Laboratory Results - last 24 hr 03/16/21 19:50: WBC 6.9, RBC 5.08, Hgb 16.6 H, Hct 50.8, MCV 100.0 H, MCH 32.7 H , MCHC 32.7, RDW Std Deviation 55.2 H, RDW Coeff of Eric 14.8 H, Plt Count 89 L, MPV 10.2, Immature Gran % (Auto) 0.400, Neut % (Auto) 65.1, Lymph % (Auto) 14.5 L, Reeves % (Auto) 19.1 H, Eos % (Auto) 0.3, Baso % (Auto) 0.6, Absolute Neuts (auto) 4.5, Absolute Lymphs (auto) 0.99, Nucleated RBC % 0, Differential Comment SCANNED 03/16/21 19:50: Sodium 134 L, Potassium 3.4 L, Chloride 99, Carbon Dioxide 29.0, Anion Gap 6, BUN 7, Creatinine 0.72, Estim Creat Clear Calc 59.85, Est GFR (MDRD) Af Amer 136, Est GFR (MDRD) Non-Af 113, BUN/Creatinine Ratio 9.7 L, Glucose 100, Calcium 8.6, Troponin I High Sens 40 03/16/21 19:50: Phosphorus 2.8, Magnesium 1.6, Total Bilirubin 3.00 H, Direct Bilirubin 1.02 H, AST 41 H, ALT 16, Alkaline Phosphatase 84, Total Protein 6.8, Albumin 2.5 L, Globulin 4.3 H 03/16/21 19:50: B-Natriuretic Peptide 529.8 H 03/16/21 21:15: Troponin I High Sens 36 03/16/21 22:17: Procalcitonin 0.06 03/16/21 22:17: Ethyl Alcohol < 3.0 03/17/21 02:25: WBC 6.4, RBC 5.11, Hgb 16.7 H, Hct 49.8, MCV 97.5 H, MCH 32.7 H, MCHC 33.5, RDW Std Deviation 53.6 H, RDW Coeff of Eric 14.8 H, Plt Count 81 L, MPV 10.1, Immature Gran % (Auto) 0.500, Neut % (Auto) 65.3, Lymph % (Auto) 16.4 L, Reeves % (Auto) 16.4 H, Eos % (Auto) 0.8, Baso % (Auto) 0.6, Absolute Neuts (auto) 4.2, Absolute Lymphs (auto) 1.05, Nucleated RBC % 0 03/17/21 02:25: Sodium 134 L, Potassium 3.1 L, Chloride 99, Carbon Dioxide 28.0, Anion Gap 7, BUN 7, Creatinine 0.54 L, Estim Creat Clear Calc 59.85, Est GFR (MDRD) Af Amer 189, Est GFR (MDRD) Non-Af 156, BUN/Creatinine Ratio 12.9, Glucose 93, Calcium 7.9 L, Total Bilirubin 2.90 H, AST 40 H, ALT 14 L, Alkaline Phosphatase 81, Total Protein 6.6, Albumin 2.2 L, Globulin 4.4 H, Albumin/Globulin Ratio 0.5 L, Triglycerides 54, Cholesterol 89, LDL Cholesterol 27, VLDL Cholesterol 11, HDL Cholesterol 51, TSH 3.11 03/17/21 02:25: Troponin I High Sens 39 Micro: Microbiology 03/16/21 23:10 Mucosa - Nasopharyngeal Respiratory Panel (PCR) - Final Radiography Diagnostic Testing: Radiology Impression Chest X-Ray 03/16/21 18:45 IMPRESSION: Increased interstitial markings may represent edema and/or infection. Cardiomegaly. Electronically Signed: Jluis Conway MD at 19:14 EDT Tel , Service support , Physical Exam Const alert, oriented x3 and no apparent distress General Appearance: cooperative HEENT normocephalic and head/scalp atraumatic Eyes conjunctivae normal and no scleral icterus Neck supple and no JVD General: trachea midline Resp normal respiratory effort and normal air movement Auscultation: diminished lung sounds Cardio regular rate, regular rhythm, S1 normal heart sound, S2 normal heart sound and peripheral pulses 2+ throughout Peripheral Pulses: pulses 2+ throughout GI normal to inspection, nondistended, normoactive bowel sounds, soft to palpation and non-tender Extremity normal capillary refill General Extremity: edema bilateral lower extremity Details: moderate and no tenderness to palpation of joints or extremities Skin General Skin Exam: no breakdown and turgor normal Lesions: no lesions Rashes: no rashes Neuro no focal motor deficits and no sensory deficits noted Speech: speech normal Motor Exam: general weakness Psych thought process normal, cooperative and affect normal Appearance: appropriate Assessment & Plan Assessment/Plan (1) CHF (congestive heart failure): QUALIFIERS: Heart failure chronicity: acute Heart failure type: unspecified Qualified Code(s): I50.9 - Heart failure, unspecified PLAN: 1. Acute hypoxia secondary to CHF exacerbation -Continue IV lasix -Echo pending -Continue scheduled DuoNeb treatments along with as needed albuterol -Patient continue to require oxygen supplementation 1 to 2 L nasal cannula -Continue fluid restriction 2. Hypokalemia -Likely secondary to initiation of IV Lasix -Potassium chloride 40 mEq p.o. x1 ordered -BMP ordered daily 3. Alcohol abuse -Continue CIWA protocol -Continue multivitamin, thiamine, folic acid -Case management consulted 4. Chronic thrombocytopenia secondary to alcohol use -Platelets 81 today -CBC daily, will continue to monitor 5. Hyponatremia -Stable, sodium 134 -CMP ordered daily DVT prophylaxis-SCD's, SC Heparin This patient was seen by Mihaela Carney NP-C under the supervision of Dr. Rosita fitzpatrick. Documented by User: Dr. Anaya Morales MD 03/17/21 15:15 Objective Data Lab / Micro Data Result Diagrams: 03/17/21 02:25 03/17/21 02:25 Charges/Coding Addendum Addendum: This patient was seen in conjunction with Nani Luciano. I have independently interviewed and examined the patient and reviewed pertinent historical, laboratory, and other data. I have reviewed her note and concur with her documentation Patient was seen and examined. He remains on 2 L of oxygen. Not on oxygen at home. He denies any chest pain or dizziness Physical Exam: Gen: Comfortable, on 2 L,, not pale, not jaundiced CVS:HS I +II, regular, no murmurs RESP: Diminished at lung bases GI: BS present and normal, soft, nontender, no palpable organs EXT: Bilateral leg edema +1-2 ASSESSMENT: 1. Hypoxia 2. Acute on chronic combined CHF, EF 55% 3. Hypokalemia/hypomagnesemia 4. Chronic thrombocytopenia 5. Chronic hyponatremia 6. Alcohol use disorder 7. COPD 8. Hypertension Plan: Replace electrolytes Continue on IV Lasix CHF protocol Wean off oxygen Possible DC in a.m. if improved Visit Charges Inpatient E&M: 87316 Subs Hosp L2
[2021-03-18] VITALS (14 sets, daily range): BP systolic 112–130; BP diastolic 72–98; PULSE 67–116; RESP 14–24; TEMP 36.7–37.2; O2SAT 88–95
--- NOTE | 2021-03-18 03:12 | PCS.PANDOC ---
PANDEMIC DOCUMENTATION INITIATED: Date: 02/08/2021 Time: 190
[2021-03-18 06:17] LABS: Absolute Lymphocyte Count 1.24 X10^3/uL (0.83-4.51); Absolute Neutrophil Count 2.9 X10^3/uL (2.0-7.7); Basophil# 0.04 X10^3/uL; Basophil% 0.7 % (0-1); Eosinophil# 0.09 X10^3/uL; Eosinophils% 1.6 % (0-5); Hemoglobin 16.6 g/dL (13.0-16.5); Lymphocyte # 1.24 X10^3/ul (0.83-4.51); Lymphocyte % 21.9 % (19-41); Mean Corp Hgb Conc 33.9 g/dL (32-36); Mean Corpuscular Hgb 32.9 pg (27.0-32.0); Monocyte# 1.34 X10^3/uL; Monocyte% 23.6 % (0-10); NRBC Flagged by Analyzer 0 % (0-5); Neutrophil # 2.93 X10^3/uL (2.7-7.7); Neutrophil % 51.7 % (47-70); POSITIVE COUNT YES; Platelet Count 82 K/mm3 (150-450); RBC Distribution Width CV 14.9 % (11.6-14.6); RBC Distribution Width SD 53.7 fl (35.1-43.9); Red Blood Count 5.05 M/mm3 (4.6-6.2); White Blood Count 5.7 K/mm3 (4.4-11.0)
[2021-03-18 06:38] LABS: Anion Gap 6 (5-15); BUN 9 mg/dL (7-18); BUN/Creat Ratio 16.5 RATIO (10-20); Calcium,Total 8.1 mg/dL (8.5-10.1); Chloride 95 mmol/L (98-107); Creatinine, Serum 0.55 mg/dL (0.70-1.30); EST Glomerular Filtration Rate 155 mL/min (>60); Est Glom Filt Rate - Afr Amer 187 mL/min (>60); Estimated Creatinine Clearance 59.85 ml/min; Glucose 92 mg/dL (74-106); Potassium 2.9 mmol/L (3.5-5.1); Sodium Level 132 mmol/L (136-145)
[2021-03-18] MEDS: Ipratropium/Albuterol Sulfate 3 ML AMPUL.NEB INHALATION ×3 (07:23→18:52)
[2021-03-18] MEDS: Thiamine Hydrochloride 100 MG Tablet PO ×2 (07:53→16:39)
[2021-03-18] MEDS: Famotidine 20 MG Tablet PO ×2 (07:53→21:54)
[2021-03-18] MEDS: Aspirin E.C. 81 MG Tablet PO (07:53)
[2021-03-18] MEDS: Folic Acid 1 MG Tablet PO (07:53)
[2021-03-18] MEDS: Multivitamins,Ther W-Minerals Tablet 1 TABLET PO (07:54)
[2021-03-18] MEDS: Heparin Injection (Vial) 5,000 UNIT/ML VIAL 5000 UNIT SC ×2 (09:31→21:54)
[2021-03-18] MEDS: Furosemide 40 MG/4 ML Vial IV ×2 (09:31→16:39)
[2021-03-18] MEDS: Potassium Chloride Oral Tablet 20 MEQ 60 MEQ PO (14:18)
[2021-03-18 14:21] LABS: Magnesium 1.7 mg/dL (1.6-2.6)
[2021-03-18] MEDS: LORazepam 2 MG/ML Syringe IV (14:33)
[2021-03-18] MEDS: Potassium Chloride 10mEq/100mL 10 MEQ/100 ML IV.SOLN. 100 MEQ IV BOLUS ×4 (14:33→17:40)
--- NOTE | 2021-03-18 16:32 | NURSING ---
This RN updated pt's son Abhijeet via phone.
[2021-03-18] MEDS: 0.9% Saline Lock 10 ML Syringe IV (16:40)
--- NOTE | 2021-03-18 16:57 | PN.HOSP_ITS ---
Subjective Subjective Patient was seen and examined. He looks depressed. He stated that he lost his son earlier in the week. Denied any progressive shortness of breath. Objective Data Objective Data Vital Signs: Vital Signs Temp Pulse Resp BP Pulse Ox 98.4 F 106 H 18 130/84 H 94 03/18/21 16:02 03/18/21 16:02 03/18/21 16:02 03/18/21 16:02 03/18/21 16:02 Oxygen Flow Rate (L/min) 2 Oxygen Delivery Method Nasal Cannula Weight: 76 kg Body Mass Index (BMI) 26.5 Intake & Output: Intake and Output for Last 24 Hours 03/16/21 03/17/21 03/18/21 23:59 23:59 23:59 Intake Total 224 / 224 540 / 540 Output Total 750 / 750 700 / 700 Balance -526 / -526 -160 / -160 Lab / Micro Data Result Diagrams: 03/18/21 05:53 03/18/21 05:53 Labs: Laboratory Results - last 24 hr 03/18/21 05:53: WBC 5.7, RBC 5.05, Hgb 16.6 H, Hct 49.0, MCV 97.0 H, MCH 32.9 H, MCHC 33.9, RDW Std Deviation 53.7 H, RDW Coeff of Eric 14.9 H, Plt Count 82 L, MPV 10.0, Immature Gran % (Auto) 0.500, Neut % (Auto) 51.7, Lymph % (Auto) 21.9, [place] % (Auto) 23.6 H, Eos % (Auto) 1.6, Baso % (Auto) 0.7, Absolute Neuts (auto) 2.9, Absolute Lymphs (auto) 1.24, Nucleated RBC % 0 03/18/21 05:53: Sodium 132 L, Potassium 2.9 L, Chloride 95 L, Carbon Dioxide 31.0, Anion Gap 6, BUN 9, Creatinine 0.55 L, Estim Creat Clear Calc 59.85, Est GFR (MDRD) Af Amer 187, Est GFR (MDRD) Non-Af 155, BUN/Creatinine Ratio 16.5, Glucose 92, Calcium 8.1 L 03/18/21 05:53: Magnesium 1.7 Micro: Microbiology 03/16/21 23:10 Mucosa - Nasopharyngeal Respiratory Panel (PCR) - Final Physical Exam Narrative Physical Examination: General: Awake, alert, oriented x 3 and cooperative, seated upright in the ED be d in no apparent distress. Skin: Normal color, normal turgor, no icterus, no cyanosis except bilateral lower extremity mild stasis disease. HEENT: AT/NC, EOMI, PERRLA, MMM, no carotid bruits, + JVD noted. Lungs: Diffusely diminished, greater bases, moderate effort, minimal rales bases, no rhonchi or wheezing. Heart: Irregular, rate controlled; no gallop, rub audible. Abdomen: Soft, NTTP, ND, mildly hyperactive BS, + HM. Extremities: No cyanosis, no clubbing, bilateral lower extremity pedal to distal zavala mild pitting edema. Neurological: Patient awake, alert, oriented as noted, cognitive function intact; pupils equally reactive to light and accommodation, cranial nerves II- XII grossly normal, moving all 4 extremities, no focal deficits, strength moderately global decrease secondary to acute presentation. Psychiatric: Affect appears fatigued otherwise normal, no acute evidence of depr essive or anxiety feelings. Psych thought process normal and cooperative Appearance: appropriate Assessment & Plan Assessment/Plan (1) CHF (congestive heart failure): QUALIFIERS: Heart failure type: unspecified Heart failure chronicity: acute Qualified Code(s): I50.9 - Heart failure, unspecified PLAN: 1. Acute hypoxia secondary to Acute exacerbation of heart failure preserved EF, EF of 55% Continue with IV Lasix, wean off oxygen for SPO2 more than 94% 2. Hypokalemia/hypomagnesemia, replace, recheck in a.m. 3. Alcohol abuse, continue to monitor on the CIWA withdrawal protocol Continue multivitamin, thiamine and folic acid 4. Chronic thrombocytopenia secondary to alcohol use, platelet remain at 81 5. Hyponatremia, chronic likely secondary to alcohol use, sodium is 132 Charges/Coding Visit Charges Inpatient E&M: 66711 Subs Hosp L3
--- NOTE | 2021-03-18 18:15 | NURSING ---
Pt became confused. Took off oxygen, alarm security or surveillance monitor, and gown and walking in the mohr. Pt took out IV. New IV restarted. Pt assisted back to bed oxygen reapplied and new IV started. Pt had slight changes to alarm security or surveillance monitor. EKG obtained and Dr. Tristan reviewed. No acute changes. Pt to have sitter at bedside.
--- NOTE | 2021-03-18 19:00 | EKG12_ITS ---
Test Reason : RHYTHM CHANGE Blood Pressure : / mmHG Vent. Rate : 107 BPM Atrial Rate : 127 BPM P-R Int : 000 ms QRS Dur : 172 ms QT Int : 368 ms P-R-T Axes : 000 100 -04 degrees QTc Int : 491 ms Atrial fibrillation Right bundle branch block Abnormal ECG Confirmed by JOSE ALBERTO CARLSON, TIM ([id number]), tape editor VICKI BROTHERS ([id number]) on 03/22/2021 1:47:44 PM Referred By: DR HARDIN Confirmed By:TIM ABRAMS MD
--- NOTE | 2021-03-18 20:09 | PCM.HOSP.N ---
Hospitalist Note Patient with increased CIWA scores, will add phenobarbital taper and continue to closely monitor.
[2021-03-19] VITALS (9 sets, daily range): BP systolic 116–138; BP diastolic 67–87; PULSE 85–113; RESP 14–20; TEMP 36.7–37.2; O2SAT 94–98
[2021-03-19 06:22] LABS: Absolute Lymphocyte Count 1.27 X10^3/uL (0.83-4.51); Absolute Neutrophil Count 2.6 X10^3/uL (2.0-7.7); Basophil# 0.03 X10^3/uL; Basophil% 0.6 % (0-1); Eosinophil# 0.06 X10^3/uL; Eosinophils% 1.2 % (0-5); Hematocrit 52.5 % (40-54); Hemoglobin 17.3 g/dL (13.0-16.5); Lymphocyte # 1.27 X10^3/ul (0.83-4.51); Lymphocyte % 25.1 % (19-41); Mean Corpuscular Hgb 32.3 pg (27.0-32.0); Mean Corpuscular Volume 98.1 fL (80-94); Mean Platelet Vol. 9.9 fl (6.2-12.0); Monocyte% 21.7 % (0-10); NRBC Flagged by Analyzer 0 % (0-5); Neutrophil # 2.57 X10^3/uL (2.7-7.7); Neutrophil % 50.8 % (47-70); POSITIVE COUNT YES; Platelet Count 90 K/mm3 (150-450); RBC Distribution Width CV 14.8 % (11.6-14.6); RBC Distribution Width SD 53.6 fl (35.1-43.9); Red Blood Count 5.35 M/mm3 (4.6-6.2); White Blood Count 5.1 K/mm3 (4.4-11.0)
[2021-03-19 06:50] LABS: Anion Gap 4 (5-15); BUN 8 mg/dL (7-18); BUN/Creat Ratio 15.9 RATIO (10-20); Calcium,Total 8.5 mg/dL (8.5-10.1); Chloride 96 mmol/L (98-107); EST Glomerular Filtration Rate 171 mL/min (>60); Est Glom Filt Rate - Afr Amer 206 mL/min (>60); Estimated Creatinine Clearance 59.85 ml/min; Glucose 93 mg/dL (74-106); Potassium 3.1 mmol/L (3.5-5.1); Sodium Level 134 mmol/L (136-145)
[2021-03-19] MEDS: Ipratropium/Albuterol Sulfate 3 ML AMPUL.NEB INHALATION ×2 (06:56→12:48)
--- NOTE | 2021-03-19 09:49 | PN.HOSP_ITS ---
Objective Data Objective Data Vital Signs: Vital Signs Temp Pulse Resp BP Pulse Ox 98.6 F 95 20 H 117/87 H 95 03/19/21 06:34 03/19/21 07:00 03/19/21 06:56 03/19/21 06:34 03/19/21 06:56 Oxygen Flow Rate (L/min) 2 Oxygen Delivery Method Nasal Cannula Weight: 73.8 kg Body Mass Index (BMI) 26.5 Intake & Output: Intake and Output for Last 24 Hours 03/17/21 03/18/21 03/19/21 23:59 23:59 23:59 Intake Total 224 / 224 1244 / 1444 440 / 440 Output Total 750 / 750 700 / 700 Balance -526 / -526 544 / 744 440 / 440 Lab / Micro Data Result Diagrams: 03/19/21 05:50 03/19/21 05:50 Labs: Laboratory Results - last 24 hr 03/18/21 05:53: Magnesium 1.7 03/19/21 05:50: WBC 5.1, RBC 5.35, Hgb 17.3 H, Hct 52.5, MCV 98.1 H, MCH 32.3 H, MCHC 33.0, RDW Std Deviation 53.6 H, RDW Coeff of Eric 14.8 H, Plt Count 90 L, MPV 9.9, Immature Gran % (Auto) 0.600, Neut % (Auto) 50.8, Lymph % (Auto) 25.1, [place] % (Auto) 21.7 H, Eos % (Auto) 1.2, Baso % (Auto) 0.6, Absolute Neuts (auto) 2.6, Absolute Lymphs (auto) 1.27, Nucleated RBC % 0 03/19/21 05:50: Sodium 134 L, Potassium 3.1 L, Chloride 96 L, Carbon Dioxide 34.0 H, Anion Gap 4 L, BUN 8, Creatinine 0.50 L, Estim Creat Clear Calc 59.85, Est GFR (MDRD) Af Amer 206, Est GFR (MDRD) Non-Af 171, BUN/Creatinine Ratio 15.9, Glucose 93, Calcium 8.5 Micro: Microbiology 03/16/21 23:10 Mucosa - Nasopharyngeal Respiratory Panel (PCR) - Final Physical Exam Narrative Physical Examination: General: Awake, alert, oriented x 3 and cooperative, seated upright in the ED bed in no apparent distress. Skin: Normal color, normal turgor, no icterus, no cyanosis except bilateral lo wer extremity mild stasis disease. HEENT: AT/NC, EOMI, PERRLA, MMM, no carotid bruits, + JVD noted. Lungs: Diffusely diminished, greater bases, moderate effort, minimal rales bases, no rhonchi or wheezing. Heart: Irregular, rate controlled; no gallop, rub audible. Abdomen: Soft, NTTP, ND, mildly hyperactive BS, + HM. Extremities: No cyanosis, no clubbing, bilateral lower extremity pedal to distal zavala mild pitting edema. Neurological: Patient awake, alert, oriented as noted, cognitive function intact; pupils equally reactive to light and accommodation, cranial nerves II- XII grossly normal, moving all 4 extremities, no focal deficits, strength moderately global decrease secondary to acute presentation. Psychiatric: Affect appears fatigued otherwise normal, no acute evidence of depressive or anxiety feelings. Assessment & Plan Assessment/Plan (1) CHF (congestive heart failure): QUALIFIERS: Heart failure type: unspecified Heart failure chronicity: acute Qualified Code(s): I50.9 - Heart failure, unspecified PLAN: 1. Acute delirium 2. Acute hypoxia secondary to Acute exacerbation of heart failure preserved EF, EF of 55% Continue with IV Lasix, wean off oxygen for SPO2 more than 94% 3. Hypokalemia/hypomagnesemia, replace, recheck in a.m. 4. Alcohol abuse, continue to monitor on the CIWA withdrawal protocol Continue multivitamin, thiamine and folic acid 5. Chronic thrombocytopenia secondary to alcohol use, platelet remain at 81 6. Hyponatremia, chronic likely secondary to alcohol use, sodium is 132 Charges/Coding Visit Charges Inpatient E&M: 05690 Subs Hosp L3
[2021-03-19] MEDS: Famotidine 20 MG Tablet PO (10:31)
[2021-03-19] MEDS: Multivitamins,Ther W-Minerals Tablet 1 TABLET PO (10:31)
[2021-03-19] MEDS: Potassium Chloride Oral Tablet 20 MEQ 60 MEQ PO (10:31)
[2021-03-19] MEDS: Folic Acid 1 MG Tablet PO (10:31)
[2021-03-19] MEDS: Furosemide 40 MG Tablet PO (10:31)
[2021-03-19] MEDS: Thiamine Hydrochloride 100 MG Tablet PO (10:31)
[2021-03-19] MEDS: Aspirin E.C. 81 MG Tablet PO (10:31)
[2021-03-19] MEDS: Heparin Injection (Vial) 5,000 UNIT/ML VIAL 5000 UNIT SC (10:32)
--- NOTE | 2021-03-19 14:38 | CASEMGMT ---
Physician notified SW that patient's son completed suicide. She asked SW to talk with him and give him some resources. SW met with patient, introduced self and role at [facility]. SW broached subject of his son completing suicide. He shared information with SW. SW listened and provided emotional support. He agreed to take counseling resources. He thanked SW for checking in with him. Luciana WEST
--- NOTE | 2021-03-19 14:56 | NURSING ---
Read and reviewed SN documentation. Discussed Plan of Care with SN.
--- NOTE | 2021-03-19 15:11 | PCM.DC ---
Discharge Instructions Diet Discharge Diet: 2000 mg Sodium Diet Activity Discharge Activity: Return to Normal Activity Follow Up Care Test Results: Test results from this visit will be discussed in further detail at your follow-up appointment, if applicable. Discharge Plan Admission Admit Date/Time: 03/16/21 21:44 Primary Reason for Your Visit: Acute CHF exacerbation Attending Provider: Anaya Morales Primary Care Provider: Paulo Padilla Discharge Orders/Prescriptions Prescriptions: New furosemide 40 mg Tablet 40 mg PO BIDLX 30 Days Qty: 60 RF: 0 thiamine HCl (vitamin B1) [Vitamin B-1] 100 mg Tablet 100 mg PO BIDCM 3 Days Qty: 6 RF: 0 Referrals / Follow Up: Paulo Padilla MD [Primary Care Provider] - Within 2 Weeks Disposition Disposition (needs filled in before D/C Order can be placed): Home, Self Care
--- NOTE | 2021-03-19 15:11 | PCM.DC.SUM ---
Providers Date of Admission: 03/16/21 Date of Discharge: 03/19/21 Primary Care Physician: Dr. Paulo Padilla MD Reason For Visit: CHF EXACERBATION, HYPOXIA Diagnosis Discharge Diagnosis (1) CHF (congestive heart failure): Status: Acute Code(s): I50.9 - Heart failure, unspecified Qualifiers: Heart failure chronicity: acute Heart failure type: unspecified Qualified Code(s): I50.9 - Heart failure, unspecified (2) Hypoxia: Status: Resolved Code(s): R09.02 - Hypoxemia (3) Hypokalemia: Status: Resolved Code(s): E87.6 - Hypokalemia (4) Hypomagnesemia: Status: Resolved Code(s): E83.42 - Hypomagnesemia (5) HTN (hypertension): Status: Chronic Code(s): I10 - Essential (primary) hypertension Qualifiers: Hypertension type: essential hypertension Qualified Code(s): I10 - Essential (primary) hypertension (6) Anxiety and depression: Status: Chronic Code(s): F41.9 - Anxiety disorder, unspecified; F32.9 - Major depressive disorder, single episode, unspecified Medications at Discharge Home Medications furosemide 40 mg PO BIDLX 30 Days #60 tab 03/19/21 thiamine HCl (vitamin B1) [Vitamin B-1] 100 mg PO BIDCM 3 Days #6 tab 03/19/21 Hospital Course Operations None Procedures 2-D Echocardiogram Summary of Care Provided Minutes Spent on Discharge: 45 Hospital Course: 76-year-old with multiple comorbidities who presented with progressive shortness of breath, leg swelling, dyspnea on exertion. Patient had negative rapid Covid. Blood cultures x2 showed no growth. She had a CTA of the chest done on 03/07/21 that showed no acute PE, showed severe emphysematous changes, severe cirrhosis and evidence of cardiomegaly. Patient was found in this admission to have potassium of 3.4, troponin of 40, chest x-ray shows increased interstitial markings. He was saturating on 2 L of oxygen. He was admitted to the PCU and managed as acute CHF exacerbation. His previous echo in November 2019 showed EF of 45%, moderate LVH, mild aortic stenosis. His potassium was replaced. Repeat 2D echo in this admission showed EF of 55%. Patient improved on diuresis. Patient voiced having his son dying a week prior to admission. He committed suicide by cutting his neck. Patient was monitored on the alcohol withdrawal protocol. He had an episode of confusion after he was given Ativan. No other events 24 hours prior. He was seen by PT and OT and did not have any concerns for discharge. He was discharged on Lasix 40 mg p.o. twice daily, he was educated on CHF prevention. He will follow up with his primary care doctor within 1-2 weeks. Physical Exam Narrative Physical exam: General: Alert, Oriented x3, Cooperative, No apparent distress, Well developed HEENT: Atraumatic Oral: Moist Mucosa Neck: Supple Lungs: Clear to auscultation Cardiovascular: HS I+II, regular, no murmurs Abdomen: Bowel Sounds Present, Soft, Non Tender Extremities: Bilateral trace leg edema Weight / BMI Weight Weight: 73.8 kg Body Mass Index (BMI) 26.5 ABG / Lab / Microbiology Data Result Diagrams: 03/19/21 05:50 03/19/21 05:50 Laboratory: Laboratory Results - last 24 hr 03/19/21 05:50: WBC 5.1, RBC 5.35, Hgb 17.3 H, Hct 52.5, MCV 98.1 H, MCH 32.3 H, MCHC 33.0, RDW Std Deviation 53.6 H, RDW Coeff of Eric 14.8 H, Plt Count 90 L, MPV 9.9, Immature Gran % (Auto) 0.600, Neut % (Auto) 50.8, Lymph % (Auto) 25.1, [place] % (Auto) 21.7 H, Eos % (Auto) 1.2, Baso % (Auto) 0.6, Absolute Neuts (auto) 2.6, Absolute Lymphs (auto) 1.27, Nucleated RBC % 0 03/19/21 05:50: Sodium 134 L, Potassium 3.1 L, Chloride 96 L, Carbon Dioxide 34.0 H, Anion Gap 4 L, BUN 8, Creatinine 0.50 L, Estim Creat Clear Calc 59.85, Est GFR (MDRD) Af Amer 206, Est GFR (MDRD) Non-Af 171, BUN/Creatinine Ratio 15.9, Glucose 93, Calcium 8.5 Microbiology: Microbiology 03/16/21 23:10 Mucosa - Nasopharyngeal Respiratory Panel (PCR) - Final D/C Instructions Discharge Diet: 2000 mg Sodium Diet Meaningful Use Info Meaningful Use Diagnoses (Choose all that apply): CHF CHF ASHVIN/ARB ordered at discharge?: No Reason ASHVIN/ARB not ordered?: Not indicated Documented LVEF (%): 55 Discharge Plan Admission Admit Date/Time: 03/16/21 21:44 Primary Reason for Your Visit: Acute CHF exacerbation Attending Provider: Anaya Morales Primary Care Provider: Paulo Padilla Instructions Additional Instructions / Restrictions: Patient Problems: Altered Health Status related to Hospitalization Patient Goals: *Optimal Level of Health *Keep Appointments *Medication Compliance *Remain Safe Discharge Orders/Prescriptions Prescriptions: New furosemide 40 mg Tablet 40 mg PO BIDLX 30 Days Qty: 60 RF: 0 thiamine HCl (vitamin B1) [Vitamin B-1] 100 mg Tablet 100 mg PO BIDCM 3 Days Qty: 6 RF: 0 Referrals / Follow Up: NicklogKeya thomas NP, MANUFACT[employer] SERVICE REPRESENTATIVE-[employer] [NON-STAFF] - 03/24/21 1:40 pm Disposition Disposition (needs filled in before D/C Order can be placed): Home, Self Care Charges/Coding Visit Charges Inpatient E&M: 31188 Disch Hosp
--- NOTE | 2021-03-19 16:08 | CASEMGMT ---
Per therapy, no further therapy recommended. SStaten RN CM
== END 2021-03-19 17:07 | disposition home or self-care (01) | DRG 292 ==
LOC: ED 20:04 → PCU 21:39
PROVIDERS: Nurse Practitioner Family; Admitting Provider Family Medicine; Emergency Provider Emergency Medicine; PCP Family Medicine; Visit Provider Internal Medicine
DX: I11.0 Hypertensive heart disease with heart failure (principal); E87.1 Hypo-osmolality and hyponatremia; F10.139 Alcohol abuse with withdrawal, unspecified; I50.43 Acute on chronic combined systolic (congestive) and diastolic (congestive) heart failure; D69.59 Other secondary thrombocytopenia; Y90.0 Blood alcohol level of less than 20 mg/100 ml; E87.6 Hypokalemia; E83.42 Hypomagnesemia; J44.9 Chronic obstructive pulmonary disease, unspecified; I48.0 Paroxysmal atrial fibrillation; E78.5 Hyperlipidemia, unspecified; F32.9 Major depressive disorder, single episode, unspecified; F41.9 Anxiety disorder, unspecified; F12.90 Cannabis use, unspecified, uncomplicated; R09.02 Hypoxemia; Z87.891 Personal history of nicotine dependence
CPT/HCPCS: 36415; 71046; 80048; 80053; 80061; 80076; 82077; 83735; 83880; 84100; 84145; 84443; 84484; 85025; 87633; 93005; 93306; 94640; 97162; 97802; 99285; A4216; J1940

== ENCOUNTER 2021-03-21 15:13 | Inpatient (IN) | payer OTHER, MEDICARE, SELFPAY ==
[2021-03-21] VITALS (9 sets, daily range): BP systolic 101–123; BP diastolic 72–95; PULSE 89–116; RESP 18–32; TEMP 36.4–37.1; O2SAT 88–95; BMI 25.3; BMI 24.6
--- NOTE | 2021-03-21 15:32 | RAD_ITS ---
HISTORY: chest pain EXAMINATION/TECHNIQUE: XR Chest 1 View: Portable upright AP chest x-ray COMPARISON: 03/16/21 FINDINGS: LINES/DEVICES: None. LUNGS: Hazy airspace opacity at the right lung base without pleural effusion. MEDIASTINUM AND CARDIOVASCULAR STRUCTURES: Stable mild cardiomegaly. Central airways and mediastinal contour are unremarkable. BONES AND SOFT TISSUES: No acute bony abnormalities. RAD/Chest 1 View (Portable) IMPRESSION: Right basilar airspace disease suspicious for pneumonia. Recommend follow-up to resolution. at 1710 Reported and signed by: Camden Elam MD Electronically Signed: Camden Elam MD at 17:09 EDT Tel , Service support ,
--- NOTE | 2021-03-21 15:33 | EKG12_ITS ---
Test Reason : Blood Pressure : / mmHG Vent. Rate : 114 BPM Atrial Rate : 090 BPM P-R Int : 000 ms QRS Dur : 172 ms QT Int : 408 ms P-R-T Axes : 000 093 -01 degrees QTc Int : 562 ms Atrial fibrillation Right bundle branch block Abnormal ECG Confirmed by WILLIAM CARLSON, MILI ([id number]), manuscript editor VICKI BROTHERS ([id number]) on 03/24/2021 9:58:01 AM Referred By: MONA Confirmed By:MILI THOMAS MD
--- NOTE | 2021-03-21 15:34 | ED.VIS.DYS ---
HPI History of Present Illness Chief Complaint: Weakness Detail of Chief Complaint: Shortness of breath. Informant: patient Onset/Context/Timing Onset: Days Context: gradual Timing: Continuous Current Severity: Mild Maximum Severity: Mild Associated Symptoms Chest Pain: Positive for None Narrative Narrative: 76-year-old male history of A. fib, alcohol abuse, medical noncompliance, COPD but not on home O2 and hypertension. Patient was recently hospitalized for congestive heart failure. Presents complaining of shortness of breath and generalized weakness. He denies nausea, vomiting or diarrhea. He denies fever or chills. States he did have a Covid vaccine earlier this year. He denies chest pain. No hemoptysis. He states his leg swelling is actually much better. PE Risk Factors: Positive for Recent immobilization; Negative for Cancer, OCP + Smoking + > 35, Prior DVT or PE, Recent surgery and Recent travel Prior similar symptoms: Yes Recent Illness/Hospitalization: Yes PFSH PFSH Medical History Afib Alcohol abuse Anxiety and depression Cellulitis of left lower extremity COPD (chronic obstructive pulmonary disease) Former tobacco use HTN (hypertension) Home Medications furosemide 40 mg PO BIDLX 30 Days #60 tab 03/19/21 [Rx Last Taken Unknown] thiamine HCl (vitamin B1) [Vitamin B-1] 100 mg PO BIDCM 3 Days #6 tab 03/19/21 [Rx Last Taken Unknown] Allergy/AdvReac Type Severity Reaction Status Date / Time No Known Allergies Allergy Verified 03/21/21 15:17 Family History Mother Cancer Reported history of brain CA. Father Myocardial infarction Heart disease Surgical History History of surgery on arm Social History household members: none Smoking Status: Former smoker how long ago did patient quit smoking: Quit 20 years prior, prior 2 pack/day cigarette tobacco since 19. alcohol intake: current alcohol intake frequency: 3 or more drinks per day Alcohol type: beer details: Drinks 6-12 beers daily. substance use type: marijuana and other details: Uses cannabis cigarettes, rolled near daily. ROS ROS ED ROS Narrative Shortness of breath and weakness. Review of Systems ROS Unobtainable: Denies due to encephalopathy Constitutional Constitutional ED: Denies chills or fever(s) Eyes Eyes: Denies change in vision ENT ENT ED: Denies ear pain or sore throat Cardiovascular Cardiovascular: Denies chest pain or palpitations Respiratory/Chest Respiratory/Chest: Reports dyspnea; Denies sputum Gastrointestinal Gastrointestinal: Denies abdominal pain, constipation, diarrhea, melena, nausea or vomiting Genitourinary Genitourinary ED: Denies dysuria Musculoskeletal Musculoskeletal: Denies myalgias Integumentary Denies rash Neurologic Neurologic: Denies headache(s) Psychiatric Psychiatric: Denies depression Endocrine Endocrinology: Denies polyuria Hematologic/Lymphatic Hematologic/Lymphatic: Denies easy bruising Allergic/Immunologic Allergic/Immunologic ED: Denies urticaria EXAM Physical Exam Narrative Exam Narrative: Older male vital signs stable and his pulse ox 88% on room air on 2 L is 93%. He is afebrile. He does not look septic or toxic. He is in no distress. HEENT exam unremarkable. Moist with memories. Neck nontender. No lymphadenopathy. No JVD. Lungs coarse breath sounds throughout. No rales, rhonchi or wheezing. Equal symmetrical. Heart tachycardic rate of 116 appears to be A. fib. Irregularly irregular. Abdomen soft nontender. Moving all 4 extremities. Calves are nontender without edema or cords. Neurologically is awake and alert. He is answering questions and following commands. Const Vital Signs: 03/21/21 15:14 03/21/21 15:18 03/21/21 15:41 Temperature 98.6 F Temperature Source Temporal Pulse Rate 116 H Respiratory Rate 20 H Respiratory Effort Normal Non-Labored Respiratory Pattern Normal Blood Pressure 123/95 H Blood Pressure Mean 104 Pulse Ox 88 93 Oxygen Delivery Method Room Air Nasal Cannula Nasal Cannula Oxygen Flow Rate (L/min) 2 2 03/21/21 16:25 Temperature Temperature Source Pulse Rate 109 H Respiratory Rate 18 Respiratory Effort Respiratory Pattern Blood Pressure 101/73 Blood Pressure Mean 82 Pulse Ox 92 Oxygen Delivery Method Nasal Cannula Oxygen Flow Rate (L/min) 2 Positive well nourished and well developed; Negative for obese, cachectic, contractures or unkempt General Appearance ED: well developed and NAD; Negative for unkempt, cachectic, contractures or pallor Nutritional Appearance: Negative for cachectic or obese HEENT Reports moist mucous membranes atraumatic; Negative for trauma or tenderness Eyes PERRL and EOMs intact bilaterally Neck no lymphadenopathy, supple, no meningeal signs and no JVD General: Negative for tenderness Resp normal respiratory effort and clear to auscultation bilaterally Auscultation: Negative for rales, rhonchi or wheezes Cardio no murmurs Cardio Narrative: A. fib rate about 115. Rate: tachycardic GI non-tender, non-distended and no masses Auscultation: normoactive bowel sounds Palpation: soft; Negative for tender, guarding or rebound tenderness present Back/Spine no CVA tenderness and normal to inspection General Back: Negative for CVA tenderness Extremity normal to inspection General Extremety ED: Negative for edema or tenderness General Extremity: Negative for edema Neuro oriented x3 Sensorium / Orientation: alert, oriented to person, oriented to place and oriented to time; Negative for orientation impaired, confused, lethargic or stuporous Motor Exam: strength 5/5 throughout Psych mental status grossly normal Appearance: Negative for unkempt Skin no wounds and No skin turgor normal General Skin Exam: Negative for jaundice or pallor Lesions: no lesions Rashes: no rashes MDM MDM MDM Narrative Medical decision making narrative: 76-year-old male with shortness of breath. History of COPD and prior history of CHF and A. fib RVR. Possibly is in A. fib at this time. Undergo cardiac work-up along with a Covid test and labs. Repeat exam no change. Nurse tried get the patient up and walking his pulse ox dropped into the 80 to range consistent with worsening hypoxia. He was unable to ambulate and started to fall into the wall. He is too weak to go home. He is hypoxic without home oxygen. I will speak to the hospitalist about admission. I have spoken to his son at bedside. Lab Data Attestation: I reviewed the patient's lab results. Lab results narrative: CBC shows a white count 5.5. Hemoglobin 18.8. Platelet count 108,000. Gap of 6 normal BUN and creatinine. Glucose of 107. Troponin normal at 30. BNP 351. Rapid Covid positive. Alcohol negative. Labs: Laboratory Results - last 24 hr 03/21/21 03/21/21 03/21/21 14:55 14:55 14:55 WBC 5.5 RBC 5.84 Hgb 18.8 H* Hct 57.6 H MCV 98.6 H MCH 32.2 H MCHC 32.6 RDW Std Deviation 54.2 H RDW Coeff of Eric 14.9 H Plt Count 108 L MPV 10.9 Immature Gran % (Auto) 0.900 Neut % (Auto) 48.5 Lymph % (Auto) 28.0 Wake % (Auto) 20.6 H Eos % (Auto) 1.3 Baso % (Auto) 0.7 Absolute Neuts (auto) 2.7 Absolute Lymphs (auto) 1.55 Nucleated RBC % 0 Sodium 134 L Potassium 3.9 Chloride 99 Carbon Dioxide 29.0 Anion Gap 6 BUN 10 Creatinine 0.76 Estim Creat Clear Calc 59.85 Est GFR (MDRD) Af Amer 127 Est GFR (MDRD) Non-Af 105 BUN/Creatinine Ratio 13.1 Glucose 107 H Calcium 9.5 Troponin I High Sens 30 B-Natriuretic Peptide 351.4 H Ethyl Alcohol 03/21/21 16:53 WBC RBC Hgb Hct MCV MCH MCHC RDW Std Deviation RDW Coeff of Eric Plt Count MPV Immature Gran % (Auto) Neut % (Auto) Lymph % (Auto) Wake % (Auto) Eos % (Auto) Baso % (Auto) Absolute Neuts (auto) Absolute Lymphs (auto) Nucleated RBC % Sodium Potassium Chloride Carbon Dioxide Anion Gap BUN Creatinine Estim Creat Clear Calc Est GFR (MDRD) Af Amer Est GFR (MDRD) Non-Af BUN/Creatinine Ratio Glucose Calcium Troponin I High Sens B-Natriuretic Peptide Ethyl Alcohol 4.0 Radiography Chest X-Ray - ED: 1 View, Read by ED Physician, Heart, Lungs, Mediastinum, Bony Structures, No Acute Disease and Chronic Changes Diagnostic Testing: Radiology Impression Chest X-Ray 03/21/21 15:32 IMPRESSION: Right basilar airspace disease suspicious for pneumonia. Recommend follow-up to resolution. at 1710 Reported and signed by: Camden Elam MD Electronically Signed: Camden Elam MD at 17:09 EDT Tel , Service support , Portable single view chest x-ray interpreted by myself shows no acute abnormality. Chronic changes consistent with COPD. EKG Initial EKG: Attestation: I personally reviewed and interpreted this EKG as follows: Interpretation: No Acute Injury Pattern and Atrial Fibrillation Comments: Atrial fibrillation RVR rate of 114 right bundle branch block. Unchanged from prior EKG from 5 days ago. Prior: Unchanged Discharge Plan Triage Chief Complaint: Weakness ED Provider: Jorge Cheatham Dx/Rx/DC Orders Clinical Impression: Alcohol abuse, CHF (congestive heart failure), COVID-19, Hypoxia, Generalized weakness Prescriptions: No Action furosemide 40 mg Tablet 40 mg PO BIDLX 30 Days Qty: 60 RF: 0 thiamine HCl (vitamin B1) [Vitamin B-1] 100 mg Tablet 100 mg PO BIDCM 3 Days Qty: 6 RF: 0 Primary Care Provider: Paulo Padilla Referrals: Paulo Padilla MD [Primary Care Provider] - Disposition Disposition: Acute Care Hospital [facility], [place]
[2021-03-21 15:48] LABS: Absolute Lymphocyte Count 1.55 X10^3/uL (0.83-4.51); Absolute Neutrophil Count 2.7 X10^3/uL (2.0-7.7); Basophil# 0.04 X10^3/uL; Basophil% 0.7 % (0-1); Eosinophil# 0.07 X10^3/uL; Eosinophils% 1.3 % (0-5); Lymphocyte # 1.55 X10^3/ul (0.83-4.51); Mean Corp Hgb Conc 32.6 g/dL (32-36); Mean Corpuscular Hgb 32.2 pg (27.0-32.0); Mean Corpuscular Volume 98.6 fL (80-94); Mean Platelet Vol. 10.9 fl (6.2-12.0); Monocyte# 1.14 X10^3/uL; Monocyte% 20.6 % (0-10); NRBC Flagged by Analyzer 0 % (0-5); Neutrophil # 2.69 X10^3/uL (2.7-7.7); Neutrophil % 48.5 % (47-70); Platelet Count 108 K/mm3 (150-450); RBC Distribution Width CV 14.9 % (11.6-14.6); RBC Distribution Width SD 54.2 fl (35.1-43.9); Red Blood Count 5.84 M/mm3 (4.6-6.2); White Blood Count 5.5 K/mm3 (4.4-11.0)
[2021-03-21 15:55] LABS: Hematocrit 57.6 % (40-54)
[2021-03-21 15:56] LABS: Hemoglobin 18.8 g/dL (13.0-16.5)
[2021-03-21 16:04] LABS: Anion Gap 6 (5-15); BUN 10 mg/dL (7-18); BUN/Creat Ratio 13.1 RATIO (10-20); Calcium,Total 9.5 mg/dL (8.5-10.1); Chloride 99 mmol/L (98-107); Creatinine, Serum 0.76 mg/dL (0.70-1.30); EST Glomerular Filtration Rate 105 mL/min (>60); Est Glom Filt Rate - Afr Amer 127 mL/min (>60); Estimated Creatinine Clearance 59.85 ml/min; Glucose 107 mg/dL (74-106); Potassium 3.9 mmol/L (3.5-5.1); Sodium Level 134 mmol/L (136-145); Troponin-I HS 30 pg/mL (3.0-78.0)
[2021-03-21 16:07] LABS: BNP,B-Type NATRIURETIC PEPTIDE 351.4 pg/mL (0-100)
--- NOTE | 2021-03-21 17:12 | HP.PCM.HOS_ITS ---
Documented by User: Nani Luciano NP, [employer]-C 03/21/21 18:06 HPI - General HPI Narrative ANA M GOVEA, is a 76 M who presents to the emergency room due to shortness of breath and weakness. Patient was discharged 03/19/2021 following treatment for heart failure. He was also on alcohol withdrawal protocol during admission. Patient denies shortness of breath, cough, URI symptoms. Patient is not forthcoming regarding information. He does report generalized weakness. Son at bedside states that he went to patient's house to check on him today and he was sitting on the couch in his own urine and staring off. He reports patient was very weak and appeared confused. Son reports patient will not admit to any symptoms. Son does report neighbors came to visit over the past 1 to 2 days which were found to be Covid positive. Patient has been vaccinated for Covid. Again, he denies Covid symptoms. He has a past medical history of CHF, chronic alcohol abuse, chronic COPD, paroxysmal atrial fibrillation, hypertension, hyperlipidemia, former tobacco use. [facility] Medical History Afib Alcohol abuse Anxiety and depression Cellulitis of left lower extremity COPD (chronic obstructive pulmonary disease) Former tobacco use HTN (hypertension) Home Medications furosemide 40 mg PO BIDLX 30 Days #60 tab 03/19/21 [Rx Last Taken Unknown] thiamine HCl (vitamin B1) [Vitamin B-1] 100 mg PO BIDCM 3 Days #6 tab 03/19/21 [Rx Last Taken Unknown] Allergy/AdvReac Type Severity Reaction Status Date / Time No Known Allergies Allergy Verified 03/21/21 15:17 Family History Mother Cancer Reported history of brain CA. Father Myocardial infarction Heart disease Surgical History History of surgery on arm Social History household members: none Smoking Status: Former smoker how long ago did patient quit smoking: Quit 20 years prior, prior 2 pack/day cigarette tobacco since 19. alcohol intake: current alcohol intake frequency: 3 or more drinks per day Alcohol type: beer details: Drinks 6-12 beers daily. substance use type: marijuana and other details: Uses cannabis cigarettes, rolled near daily. ROS Constitutional Constitutional: Reports weakness; Denies change in weight, chills, fatigue or fever(s) Cardiovascular Cardiovascular: Reports edema; Denies chest pain, lightheadedness, palpitations or syncope Respiratory/Chest Respiratory/Chest: Denies cough, dyspnea, productive cough, shortness of breath at rest, shortness of breath with exertion or wheezing Gastrointestinal Gastrointestinal: Denies abdominal pain, constipation, diarrhea, nausea or vomiting Genitourinary Genitourinary: Denies burning urination, difficulty urinating, dysuria, hematuria, urinary frequency, urinary incontinence or urinary urgency Musculoskeletal Musculoskeletal: Denies back pain, joint pain or muscle weakness Integumentary Integumentary: Denies erythema, lesions, rash or wounds Neurologic Neurologic: Denies abnormal speech, confusion, dizziness, focal weakness, numbness, paresthesias, seizure-like activity or syncope Psychiatric Psychiatric: Denies anxiety or depression Hematologic/Lymphatic Hematologic/Lymphatic: Denies anemia, easy bleeding or easy bruising Allergic/Immunologic Allergic/Immunologic: Denies hives or asthma Vital Signs Vital Signs Vital Signs: 03/21/21 15:14 03/21/21 15:18 03/21/21 15:41 Temperature 98.6 F Temperature Source Temporal Pulse Rate 116 H Respiratory Rate 20 H Respiratory Effort Normal Non-Labored Respiratory Pattern Normal Blood Pressure 123/95 H Blood Pressure Mean 104 Pulse Ox 88 93 Oxygen Delivery Method Room Air Nasal Cannula Nasal Cannula Oxygen Flow Rate (L/min) 2 2 03/21/21 16:25 Temperature Temperature Source Pulse Rate 109 H Respiratory Rate 18 Respiratory Effort Respiratory Pattern Blood Pressure 101/73 Blood Pressure Mean 82 Pulse Ox 92 Oxygen Delivery Method Nasal Cannula Oxygen Flow Rate (L/min) 2 Weight Weight: 166 lb 14.239 oz Body Mass Index (BMI) 25.3 Physical Exam Const alert, oriented x3 and no apparent distress Constitutional Narrative: Slow to respond Orientation / Consciousness: awake, oriented to person, oriented to place and oriented to time HEENT normocephalic Mouth: dry mucous membranes Eyes PERRL, EOMs intact bilaterally and conjunctivae normal Neck no lymphadenopathy Resp clear to auscultation bilaterally Auscultation: diminished lung sounds Cardio regular rate, regular rhythm and no murmurs Peripheral Pulses: pulses 2+ throughout GI normal to inspection, nondistended, normoactive bowel sounds, non-tender and non -distended Extremity normal to inspection Skin no rashes or lesions noted Lesions: no lesions Rashes: no rashes Trauma: no lacerations or abrasions Neuro CN's II-XII intact bilaterally, no focal motor deficits, no sensory deficits noted and deep tendon reflexes 2+ bilaterally Psych mental status grossly normal and affect normal Results Lab / Micro Data Result Diagrams: 03/21/21 14:55 03/21/21 14:55 Labs: Laboratory Results - last 24 hr 03/21/21 14:55: WBC 5.5, RBC 5.84, Hgb 18.8 H*, Hct 57.6 H, MCV 98.6 H, MCH 32.2 H, MCHC 32.6, RDW Std Deviation 54.2 H, RDW Coeff of Eric 14.9 H, Plt Count 108 L , MPV 10.9, Immature Gran % (Auto) 0.900, Neut % (Auto) 48.5, Lymph % (Auto) 28.0, [place] % (Auto) 20.6 H, Eos % (Auto) 1.3, Baso % (Auto) 0.7, Absolute Neuts (auto) 2.7, Absolute Lymphs (auto) 1.55, Nucleated RBC % 0 03/21/21 14:55: Sodium 134 L, Potassium 3.9, Chloride 99, Carbon Dioxide 29.0, Anion Gap 6, BUN 10, Creatinine 0.76, Estim Creat Clear Calc 59.85, Est GFR (MDRD) Af Amer 127, Est GFR (MDRD) Non-Af 105, BUN/Creatinine Ratio 13.1, Glucose 107 H, Calcium 9.5, Troponin I High Sens 30 03/21/21 14:55: B-Natriuretic Peptide 351.4 H Micro: Microbiology 03/21/21 15:40 Nasal Secretion SARS-CoV-2 Antigen (Rapid) - Final Radiology Impression Chest X-Ray 03/21/21 15:32 IMPRESSION: Right basilar airspace disease suspicious for pneumonia. Recommend follow-up to resolution. at 1710 Reported and signed by: Camden Elam MD Electronically Signed: Camden Elam MD at 17:09 EDT Tel , Service support , Assessment & Plan Assessment/Plan (1) Hypoxia: PLAN: 1. Failure to thrive, weakness-patient has not been taking medications, returned to heavy alcohol drinking. Complicated by #2. Significantly weak. PT/OT. Case management/social work consult. 2. Acute hypoxic respiratory failure secondary to COVID-19 pneumonia, possible aspiration pneumonia? Chest x-ray with right basilar airspace disease. No leukocytosis, afebrile. IV antibiotics empirically. Speech therapy consult. No Covid symptoms with the exception of hypoxia and weakness. Rapid Covid positive, PCR pending. Continue supplemental oxygen to maintain O2 above 90% 3. Chronic heart failure with preserved ejection fraction-echocardiogram 03/17/2021 demonstrated an EF of 55%, mild aortic valve insufficiency. Clinically does not appear fluid overloaded. Chest x-ray without congestion. BNP mildly elevated. Appears patient did not fill his Lasix prescription at recent discharge. Clinically appears dry. Hold Lasix for now. 4. Chronic alcohol abuse-completed medical stabilization during recent admission. Patient reports drinking 12 pack of beer per day since discharge. CIWA/Ativan protocol. Monitor for withdrawal, may need increased medical stabilization protocol. Thiamine, folic acid, multivitamin supplementation. 5. Paroxysmal atrial fibrillation-not on rate control or anticoagulation. Rate stable. 6. Hypertension-stable, has not been on regimen. Monitor BP. 7. Former tobacco use-encouraged continued cessation. 8. GERD-continue famotidine. 9. Anxiety, depression-previously on Prozac, appears he is no longer taking. Does not appear he is filled any prescriptions since August. Patient's son rec ently committed suicide. Recommend follow up with behavioral health. 10. Chronic thrombocytopenia-stable. DVT prophylaxis- Lovenox nm This patient was seen by JOSE Jacques under the supervision of Dr. Tristan. Documented by User: Dr. Sergei Tristan MD 03/21/21 18:35 HPI - General General Date of Admission: 03/21/21 Chief Complaint: Generalized weakness, confusion HPI Narrative This is 76-year-old male with history of chronic alcohol use, 5 to 6,16 ounce bottles of beers daily was recently discharged on 03/19 after admission for heart failure exacerbation brought to ER by EMS for generalized weakness. As per EMS, there was suspicion of stroke but patient was actually zoned out and confused. As per EMS, patient does not know patient answer, very weak. Blood glucose level 101. In ER, patient denies shortness of breath, chest pain/pressure, fever or chills, leg swelling. Actually patient seems dehydrated with high hematocrit. Twelve- lead EKG by EMS shows sinus tachycardia with PACs RBBB but in the ED A. fib with RVR at 114 bpm. He has A. fib which which was present on previous EKG from 03/16 during previous admission. Patient is confused and disoriented and needs repetitive question and takes long time to respond. [facility] Medical History Afib Alcohol abuse Anxiety and depression Cellulitis of left lower extremity COPD (chronic obstructive pulmonary disease) Former tobacco use HTN (hypertension) Home Medications furosemide 40 mg PO BIDLX 30 Days #60 tab 03/19/21 [Rx Last Taken Unknown] thiamine HCl (vitamin B1) [Vitamin B-1] 100 mg PO BIDCM 3 Days #6 tab 03/19/21 [Rx Last Taken Unknown] Allergy/AdvReac Type Severity Reaction Status Date / Time No Known Allergies Allergy Verified 03/21/21 15:17 Family History Mother Cancer Reported history of brain CA. Father Myocardial infarction Heart disease Surgical History History of surgery on arm Social History household members: none Smoking Status: Former smoker how long ago did patient quit smoking: Quit 20 years prior, prior 2 pack/day cigarette tobacco since 19. alcohol intake: current alcohol intake frequency: 3 or more drinks per day Alcohol type: beer details: Drinks 6-12 beers daily. substance use type: marijuana and other details: Uses cannabis cigarettes, rolled near daily. Physical Exam Narrative General: Awake, lethargic, oriented to place time and person but not situation. Mentioned strong ER. Takes a long time to say his birthday. HEENT: Atraumatic, PERRLA, EOMI, Normocephalic Oral: Oral mucosa is dry no Gingival or Mucosal Lesions/ Ulcerations Neck: Supple, No JVD, Negative Carotid Bruits Lungs: Air entry diminished in bilateral lung bases. Right lung base crepitations present. No hypoxia or tachypnea Cardiovascular: A. fib, heart rate 96/min, Normal S1, Normal S2, No murmurs Abdomen: Bowel Sounds Present, Soft, Non Tender, Non-Distended : No renal angle tenderness. No suprapubic tenderness. Extremities: No edema, Capillary Refill Less than 3 Seconds Skin: Bruises and ecchymosis present on extremities. Recent bruise on left knee. Musculoskeletal: No Tenderness to Palpation of Joints or Extremities Neurological: Cranial nerves II-XII grossly intact, DTR 2+/4 and Symmetrical, Neuro grossly intact Psych/Mental Status: Flat affect, lethargic, drowsy Results Lab / Micro Data Result Diagrams: 03/21/21 14:55 03/21/21 14:55 Assessment & Plan Assessment/Plan (1) Alcohol abuse: PLAN: This patient was seen in conjunction with FLAME PLANER, Nani. I have independently interviewed and examined the patient and reviewed pertinent history, examination findings, laboratory and plan of management. I have reviewed the note and agree with the documented findings with the few additional points. In brief, patient is admitted for generalized weakness along with confusion, lethargy and encephalopathy probably due to increased recent alcohol intake with history of chronic alcohol use and dependence. Although serum alcohol level is negative but clinically patient looks encephalopathic. GGT, magnesium, phosphorus, U tox and liver test ordered. Patient also smokes marijuana. Patient on thiamine. Patient also found Covid rapid antigen positive inside one of the neighbor listed 1 or 2 days before was Covid positive. Patient has [employer] Covid vaccine in the month of August and September 2020. Currently patient does not have shortness of breath, chest tightness or cough but mild hypoxia 88% on room air, pulse ox 83% on 2 L of oxygen. RT PCR ordered. Patient is started on IV fluid normal saline, monitor intake and output patient is euvolemic, resume Lasix 40 mg twice daily. Magnesium 1.8. Phosphorus 4.2 Chest x-ray shows right Basilar airspace disease suspicious for pneumonia with change right clinical perspective since aspiration pneumonia. Patient is started on IV Unasyn. Rest comorbidities as mentioned above including recent admission for CHF exacerbation. EF 55% with chronic diastolic heart failure. Mild AI. I have discussed my assessment with FLAME PLANER, Nani and orders have been reviewed. VTE prophylaxis: Heparin 5000 units subcutaneous twice daily. Mild thrombocytopenia, platelet count 100,000. Discontinue heparin subcut, if platelet count drops less than 50,000 or hemoglobin less than 8 g% Living will/advanced directive/end of life care: Patient does not have living will or advanced directive. After discussion of benefits/risks procedures involved with full code, DNR CC arrest and DNR CC, the patient opted for DNR-CC Arrest with no intubation Patient does not want artificial life support including intubation, tube feed, ventilator and/chest compression, central venous catheter, vasopressor and DC shock if needed Total time spent in [id number] encounter in discussion of advanced directive 16 minutes. Microbiology Past 72 Hours 03/21/21 15:40 Nasal Secretion SARS-CoV-2 Antigen (Rapid) - Final Laboratory Results 03/21/21 14:55: WBC 5.5, RBC 5.84, Hgb 18.8 H*, Hct 57.6 H, MCV 98.6 H, MCH 32.2 H, MCHC 32.6, RDW Std Deviation 54.2 H, RDW Coeff of Eric 14.9 H, Plt Count 108 L , MPV 10.9, Immature Gran % (Auto) 0.900, Neut % (Auto) 48.5, Lymph % (Auto) 28.0, [place] % (Auto) 20.6 H, Eos % (Auto) 1.3, Baso % (Auto) 0.7, Absolute Neuts (auto) 2.7, Absolute Lymphs (auto) 1.55, Nucleated RBC % 0 03/21/21 14:55: Sodium 134 L, Potassium 3.9, Chloride 99, Carbon Dioxide 29.0, Anion Gap 6, BUN 10, Creatinine 0.76, Estim Creat Clear Calc 59.85, Est GFR (MDRD) Af Amer 127, Est GFR (MDRD) Non-Af 105, BUN/Creatinine Ratio 13.1, Glucose 107 H, Calcium 9.5, Troponin I High Sens 30 03/21/21 14:55: B-Natriuretic Peptide 351.4 H 03/21/21 14:55: Total Bilirubin 1.80 H, Direct Bilirubin 0.60 H, GGT 88 H, AST 68 H, ALT 26, Alkaline Phosphatase 162 H, Total Protein 7.7, Albumin 2.6 L, Globulin 5.1 H 03/21/21 14:55: Phosphorus 4.2, Magnesium 1.8 03/21/21 16:53: Ethyl Alcohol 4.0 03/21/21 17:26: COVID-19 ([place]) Pending Clinical Impression(s) from Imaging Studies Chest X-Ray 03/21/21 15:32 IMPRESSION: Right basilar airspace disease suspicious for pneumonia. Recommend follow-up to resolution. Charges/Coding Visit Charges Inpatient E&M: 17358 Init Hosp L3 Procedures Hospitalists Procedures: 86978 Advncd Care Plan 30 Min
--- NOTE | 2021-03-21 17:54 | ED.RN ---
ATTEMPTED TO AMBULATE PT, PT WEAK, TOOK TWO STEP THEN LOST BALANCE, WOULD HAVE FALLEN IF THIS RN NOT ASSISTING. PT BACK TO BED, O2 APPLIED. SPO2 83% WHILE ATTEMPTING TO AMBULATE ON ROOM AIR.
[2021-03-21 18:25] LABS: AST(SGOT) 68 U/L (15-37); Alanine Aminotransfer ALT/SGPT 26 U/L (16-61); Albumin, Serum 2.6 g/dL (3.2-5.0); Alkaline Phosphatase 162 U/L (45-117); GGTP 88 U/L (15-85); Globulin 5.1 g/dL (2.2-4.2); Magnesium 1.8 mg/dL (1.6-2.6); Phosphorus 4.2 mg/dL (2.5-4.9); Protein, Total 7.7 g/dL (6.4-8.2)
--- NOTE | 2021-03-21 19:50 | PCM.HOSP.N ---
Hospitalist Note Patient Covid PCR came positive. Earlier patient was tested rapid COVID-19 antigen negative on 03/07 when he came for leg swelling for about a month and at that time CT angiogram was done which shows no pulmonary embolism but severe emphysema, small right effusion, severe cirrhosis and cardiomegaly. Chest x-ray showing central pulmonary congestion but patient signed AMA. After that patient was admitted on 03/16 for CHF exacerbation but at that time was not tested for COVID-19. When patient went home he started drinking alcohol as mentioned in HPI. Chest x-ray shows right lower lobe infiltrate possible aspiration pneumonia. Patient is started on Decadron and remdesivir with ID consult. Incentive spirometry, Mucinex and inflammatory markers ordered including D-dimer. Chances of PE is less as modified Wells criteria shows less than [address] chest angiogram negative.
[2021-03-21] MEDS: 0.9% Saline Lock 10 ML Syringe IV ×3 (19:55→21:46)
[2021-03-21] MEDS: 0.9% Normal Saline 1,000 ML 75 ML IV (19:56)
[2021-03-21 21:22] LABS: Fibrinogen 372 mg/dl (203-444)
[2021-03-21 21:23] LABS: International Normalized Ratio 1.3; Prothrombin Time (Protime)PT. 15.4 SECONDS (11.7-14.9)
[2021-03-21 21:31] LABS: CPK Total, Creatine Kinase 411 U/L (39-308); LDH 258 U/L (87-241)
[2021-03-21] MEDS: dexAMETHasone 4 MG/ML Vial 6 MG IV (21:37)
--- NOTE | 2021-03-21 21:39 | CT_ITS ---
HISTORY: Chest pain EXAMINATION: CTA Chest WO/W Contrast Injection TECHNIQUE: Helically acquired images were obtained of the chest following IV contrast as per pulmonary angiogram protocol with 3D reconstructions. A radiation dose optimization technique was used for this scan. IV Contrast dosage and agent: 100ML Isovue 370 COMPARISON: 03/07/21 FINDINGS: LUNGS, PLEURA AND LARGE AIRWAYS: Stable emphysematous changes with interval development of patchy groundglass opacities in the periphery of the posterior lingula with minimal involvement of the left lower lobe. No pleural effusions or pneumothorax. THYROID: No thyroid lesions. PULMONARY ARTERIES: Stable mild enlargement of the main pulmonary arteries. No pulmonary embolism. AORTA AND GREAT VESSELS: Stable 4 cm aneurysmal dilatation of the ascending aorta, no dissection. HEART AND PERICARDIUM: Heart size is normal. No pericardial effusion. RV to LV ratio measures greater than 1. MEDIASTINUM AND HUNTER: Stable mediastinal adenopathy. Esophagus is unremarkable. No hiatal hernia. UPPER ABDOMEN: Stable hepatic cirrhosis. Reflux of contrast into the hepatic veins. BONES: No acute or aggressive abnormality. CT/CTA Chest W/WO Contrast IMPRESSION: Negative CTA Chest. Cardiomegaly with evidence of increased right heart pressures. Pulmonary emphysema with interval development of groundglass air space disease in the lingula and left lower lobe. Findings suspicious for pneumonia including atypical or viral pneumonia. Stable findings of pulmonary hypertension. Individualized dose optimization techniques were used for this CT. at 2309 Reported and signed by: Camden Elam MD Electronically Signed: Camden Elam MD at 23:08 EDT Tel , Service support ,
[2021-03-21 21:41] LABS: Procalcitonin 0.05 ng/mL (0.00-0.09)
[2021-03-21] MEDS: Heparin Injection (Vial) 5,000 UNIT/ML VIAL 5000 UNIT SC (22:28)
[2021-03-21 23:03] LABS: Amphetamine Urine VISTA NEGATIVE (<1000 ng/mL); Barbiturate Urine VISTA NEGATIVE (< 200 ng/mL); Benzodiazepine Urine VISTA NEGATIVE (< 200 ng/mL); Cocaine Urine VISTA NEGATIVE (< 300 ng/mL); Ecstacy Urine VISTA NEGATIVE (< 500 ng/mL); Methadone Urine VISTA NEGATIVE (< 300 ng/mL); PCP Urine VISTA NEGATIVE (< 25 ng/mL); THC Urine VISTA POSITIVE (< 50 ng/mL); Vista UDS pH Range 7
[2021-03-22] VITALS (14 sets, daily range): BP systolic 121–140; BP diastolic 77–97; PULSE 61–89; RESP 18–20; TEMP 35–36.6; O2SAT 85–95
[2021-03-22 06:48] LABS: Absolute Lymphocyte Count 0.55 X10^3/uL (0.83-4.51); Absolute Neutrophil Count 1.7 X10^3/uL (2.0-7.7); Basophil# 0.02 X10^3/uL; Basophil% 0.8 % (0-1); Lymphocyte # 0.55 X10^3/ul (0.83-4.51); Lymphocyte % 22.3 % (19-41); Mean Corp Hgb Conc 32.3 g/dL (32-36); Mean Corpuscular Hgb 32.5 pg (27.0-32.0); Mean Corpuscular Volume 100.9 fL (80-94); Mean Platelet Vol. 10.8 fl (6.2-12.0); Monocyte# 0.21 X10^3/uL; Monocyte% 8.5 % (0-10); NRBC Flagged by Analyzer 0 % (0-5); Neutrophil # 1.66 X10^3/uL (2.7-7.7); Neutrophil % 67.2 % (47-70); POSITIVE COUNT YES; POSITIVE DIFFERENTIAL YES; POSITIVE MORPHOLOGY YES; Platelet Count 89 K/mm3 (150-450); RBC Distribution Width CV 14.8 % (11.6-14.6); Red Blood Count 5.53 M/mm3 (4.6-6.2); White Blood Count 2.5 K/mm3 (4.4-11.0)
[2021-03-22 06:49] LABS: ALB/GLOB Ratio 0.4 RATIO (0.9-2.4); AST(SGOT) 66 U/L (15-37); Alanine Aminotransfer ALT/SGPT 23 U/L (16-61); Alkaline Phosphatase 106 U/L (45-117); Anion Gap 5 (5-15); BUN 9 mg/dL (7-18); Calcium,Total 8.3 mg/dL (8.5-10.1); Chloride 101 mmol/L (98-107); EST Glomerular Filtration Rate 139 mL/min (>60); Est Glom Filt Rate - Afr Amer 168 mL/min (>60); Estimated Creatinine Clearance 59.85 ml/min; Globulin 4.6 g/dL (2.2-4.2); Glucose 125 mg/dL (74-106); Potassium 3.8 mmol/L (3.5-5.1); Protein, Total 6.6 g/dL (6.4-8.2); Sodium Level 137 mmol/L (136-145)
[2021-03-22 06:56] LABS: Hematocrit 55.8 % (40-54)
[2021-03-22 06:57] LABS: Differential Indicated SCAN CRITERIA MET
[2021-03-22] MEDS: Heparin Injection (Vial) 5,000 UNIT/ML VIAL 5000 UNIT SC ×2 (09:47→20:40)
[2021-03-22] MEDS: dexAMETHasone 4 MG/ML Vial 6 MG IV (09:50)
--- NOTE | 2021-03-22 09:51 | NURSING ---
DR NOLAN MADE AWARE PLT COUNT 89 - OK TO GIVE HEPARIN SQ
[2021-03-22 14:20] LABS: Pathologist Review Reviewed
--- NOTE | 2021-03-22 14:45 | CASEMGMT ---
Social Work Note CHRISTIAN reviewed chart. Pt with ETOH use. SW in to speak with pt. SW introduced self and role at [facility]. Pt states he is hungry, hasn't ate today. SW informed pt that this worker will check with RN why pt hasn't ate yet. SW spoke with pt about ETOH use. Pt states he only drinks 2 beers a day, denied having an ETOH problem. Pt states that he is a [place] and has PTSD. Pt denied any other Mental Health. Pt states at one time he was in counseling for his PTSD but denied currently being in any counseling. Pt denied any ETOH and/or counseling resources. Pt denied any history of suicidal thoughts/plans/ideations. Pt denied any current suicidal thoughts/plans/ideations. SW asked pt about his son committing suicide. Pt confirms his son committed suicide and that it was last week that it happened. Pt states while he was in [place] he saw a lot of people he knew pass and pt states he is just coping with it. SW asked pt how he is coping. Pt states I am just numb and I self medicate. Pt states that he drinks ETOH to self medicate. SW asked pt if he realizes that utilizing ETOH as a coping skill could lead to further problems with pt and pt denied. Pt states he doesn't abuse ETOH. SW offered to provide pt with Bereavement/Grief counseling resources and pt also denied. SW asked pt if he felt he needed [facility] for PT/OT and pt denied. Pt denied any additional needs or concerns at this time. Flora Mahan COMMUNITY INTEGRATION SPECIALIST, [employer]
--- NOTE | 2021-03-22 15:29 | CON.PCM.ID_ITS ---
Assessment & Plan Assessment/Plan (1) COVID-19: PLAN: Tested (+) 03/21. Plan on 20 days isolation from 03/21. Has been vaccinated, feeling well, on dex/remdesivir. Will stop unasyn. Will follow as needed, thank you (2) Hypoxia: HPI Consult Data Date of Consult: 03/22/21 HPI Narrative HPI Narrative: ANA M GOVEA, is a 76 M who was discharged 03/19 after treatment for CHF. Reports neighbors who visited had covid. He is vaccinated. Denies symptoms other than fatigue and weakness. Admitted here, (+) covid, started unasyn, dex, remdesivir. Wants to go home. Full ROS performed and neg except as noted above. [facility] Medical History (Updated 03/22/21 @ 15:[address] Anil Hernandez MD) Afib Alcohol abuse Anxiety and depression Cellulitis of left lower extremity Cirrhosis COPD (chronic obstructive pulmonary disease) Former tobacco use HTN (hypertension) Irregular heart beat Home Medications furosemide 40 mg PO BIDLX 30 Days #60 tab 03/19/21 [Rx Last Taken Unknown] thiamine HCl (vitamin B1) [Vitamin B-1] 100 mg PO BIDCM 3 Days #6 tab 03/19/21 [Rx Last Taken Unknown] Allergy/AdvReac Type Severity Reaction Status Date / Time No Known Allergies Allergy Verified 03/21/21 15:17 Family History Mother Cancer Reported history of brain CA. Father Myocardial infarction Heart disease Surgical History History of surgery on arm Social History household members: none Smoking Status: Former smoker how long ago did patient quit smoking: Quit 20 years prior, prior 2 pack/day cigarette tobacco since 19. alcohol intake: current alcohol intake frequency: 3 or more drinks per day Alcohol type: beer details: Drinks 6-12 beers daily. substance use type: marijuana and other details: Uses cannabis cigarettes, rolled near daily. Physical Exam Const alert, oriented x3 and no apparent distress General Appearance: cooperative Exam Limitations: no limitations HEENT normocephalic and head/scalp atraumatic Eyes PERRL and EOMs intact bilaterally Neck supple and No nodes Resp clear to auscultation bilaterally Auscultation: diminished lung sounds Cardio regular rate and regular rhythm GI normal to inspection, nondistended, normoactive bowel sounds Extremity no clubbing, cyanosis or edema Skin no rashes or lesions noted Neuro CN's II-XII intact bilaterally Lab / Micro Data Result Diagrams: 03/22/21 05:45 03/22/21 05:45 Labs: Laboratory Results - last 24 hr 03/21/21 14:55: WBC 5.5, RBC 5.84, Hgb 18.8 H*, Hct 57.6 H, MCV 98.6 H, MCH 32.2 H, MCHC 32.6, RDW Std Deviation 54.2 H, RDW Coeff of Eric 14.9 H, Plt Count 108 L , MPV 10.9, Immature Gran % (Auto) 0.900, Neut % (Auto) 48.5, Lymph % (Auto) 28.0, [place] % (Auto) 20.6 H, Eos % (Auto) 1.3, Baso % (Auto) 0.7, Absolute Neuts (auto) 2.7, Absolute Lymphs (auto) 1.55, Nucleated RBC % 0, Diff Path Review Reviewed 03/21/21 14:55: Sodium 134 L, Potassium 3.9, Chloride 99, Carbon Dioxide 29.0, Anion Gap 6, BUN 10, Creatinine 0.76, Estim Creat Clear Calc 59.85, Est GFR (MDRD) Af Amer 127, Est GFR (MDRD) Non-Af 105, BUN/Creatinine Ratio 13.1, Glucose 107 H, Calcium 9.5, Troponin I High Sens 30 03/21/21 14:55: B-Natriuretic Peptide 351.4 H 03/21/21 14:55: Total Bilirubin 1.80 H, Direct Bilirubin 0.60 H, GGT 88 H, AST 68 H, ALT 26, Alkaline Phosphatase 162 H, Total Protein 7.7, Albumin 2.6 L, Globulin 5.1 H 03/21/21 14:55: Phosphorus 4.2, Magnesium 1.8 03/21/21 16:53: Ethyl Alcohol 4.0 03/21/21 17:26: COVID-19 ([place]) Detected 03/21/21 20:40: PT 15.4 H, INR 1.3, Fibrinogen 372, D-Dimer Quant (PE/DVT) 1.40 H* 03/21/21 20:40: Lactate Dehydrogenase 258 H, Total Creatine Kinase 411 H, C- React Prot Ext Range 16.50 H 03/21/21 20:40: Procalcitonin 0.05 03/21/21 20:50: Lactic Acid 1.0 03/21/21 22:28: Urine Opiates Screen NEGATIVE, Urine Methadone Screen NEGATIVE, Ur Barbiturates Screen NEGATIVE, Ur Phencyclidine Scrn NEGATIVE, Ur Amphetamines Screen NEGATIVE, U Methamphetamin-MDMA NEGATIVE, U Benzodiazepines Scrn NEGATIVE, Urine Cocaine Screen NEGATIVE, U Cannabinoids Screen POSITIVE H, Ur Drug Screen Comment 03/22/21 05:45: WBC 2.5 L, RBC 5.53, Hgb 18.0 H*, Hct 55.8 H, MCV 100.9 H, MCH 32.5 H, MCHC 32.3, RDW Std Deviation 56.0 H, RDW Coeff of Eric 14.8 H, Plt Count 89 L, MPV 10.8, Immature Gran % (Auto) 1.200 H, Neut % (Auto) 67.2, Lymph % (Auto) 22.3, [place] % (Auto) 8.5, Eos % (Auto) 0.0, Baso % (Auto) 0.8, Absolute Neuts (auto) 1.7 L, Absolute Lymphs (auto) 0.55 L, Nucleated RBC % 0, Diff Path Review October03/22/21 05:45: Sodium 137, Potassium 3.8, Chloride 101, Carbon Dioxide 31.0, Anion Gap 5, BUN 9, Creatinine 0.60 L, Estim Creat Clear Calc 59.85, Est GFR (MDRD) Af Amer 168, Est GFR (MDRD) Non-Af 139, BUN/Creatinine Ratio 15.0, Glucose 125 H, Calcium 8.3 L, Total Bilirubin 1.10 H, AST 66 H, ALT 23, Alkaline Phosphatase 106, Total Protein 6.6, Albumin 2.0 L, Globulin 4.6 H, Albumin/Globulin Ratio 0.4 L Micro: Microbiology 03/21/21 22:28 Urine, Clean Catch Legionella Antigen - Final 03/21/21 22:28 Urine, Clean Catch Streptococcus pneumoniae Antigen (M - Final 03/21/21 15:40 Nasal Secretion SARS-CoV-2 Antigen (Rapid) - Final Radiology Impression Chest X-Ray 03/21/21 15:32 IMPRESSION: Right basilar airspace disease suspicious for pneumonia. Recommend follow-up to resolution. at 1710 Reported and signed by: Camden Elam MD Electronically Signed: Camden Elam MD at 17:09 EDT Tel , Service support , Chest CTA 03/21/21 21:39 IMPRESSION: Negative CTA Chest. Cardiomegaly with evidence of increased right heart pressures. Pulmonary emphysema with interval development of groundglass air space disease in the lingula and left lower lobe. Findings suspicious for pneumonia including atypical or viral pneumonia. Stable findings of pulmonary hypertension. Individualized dose optimization techniques were used for this CT. at 2309 Reported and signed by: Camden Elam MD Electronically Signed: Camden Elam MD at 23:08 EDT Tel , Service support ,
[2021-03-22] MEDS: Thiamine Hydrochloride 100 MG Tablet PO (19:02)
[2021-03-22] MEDS: Furosemide 40 MG Tablet PO (19:02)
--- NOTE | 2021-03-22 19:15 | PN.HOSP_ITS ---
Subjective Subjective Doing well, no issues overnight. Maintaining his oxygen saturations on 2 L nasal cannula will obtain an ambulatory pulse ox in the morning. Objective Data Objective Data Vital Signs: Vital Signs Temp Pulse Resp BP Pulse Ox 95.0 F L 79 18 139/89 H 92 03/22/21 15:52 03/22/21 18:25 03/22/21 15:52 03/22/21 15:52 03/22/21 16:42 Oxygen Flow Rate (L/min) 94 Oxygen Delivery Method Nasal Cannula Weight: 162 lb 0.636 oz Body Mass Index (BMI) 24.6 Intake & Output: Intake and Output for Last 24 Hours 03/21/21 03/22/21 03/23/21 03:59 03:59 03:59 Intake Total 438.25 / 438.25 1607.75 / 1607.75 Output Total 550 / 550 650 / 650 Balance -111.75 / -111.75 957.75 / 957.75 Lab / Micro Data Result Diagrams: 03/22/21 05:45 03/22/21 05:45 Labs: Laboratory Results - last 24 hr 03/21/21 14:55: Diff Path Review Reviewed 03/21/21 17:26: COVID-19 ([place]) Detected 03/21/21 20:40: PT 15.4 H, INR 1.3, Fibrinogen 372, D-Dimer Quant (PE/DVT) 1.40 H* 03/21/21 20:40: Lactate Dehydrogenase 258 H, Total Creatine Kinase 411 H, C- React Prot Ext Range 16.50 H 03/21/21 20:40: Procalcitonin 0.05 03/21/21 20:50: Lactic Acid 1.0 03/21/21 22:28: Urine Opiates Screen NEGATIVE, Urine Methadone Screen NEGATIVE, Ur Barbiturates Screen NEGATIVE, Ur Phencyclidine Scrn NEGATIVE, Ur Amphetamines Screen NEGATIVE, U Methamphetamin-MDMA NEGATIVE, U Benzodiazepines Scrn NEGATIVE, Urine Cocaine Screen NEGATIVE, U Cannabinoids Screen POSITIVE H, Ur Drug Screen Comment 03/22/21 05:45: WBC 2.5 L, RBC 5.53, Hgb 18.0 H*, Hct 55.8 H, MCV 100.9 H, MCH 32.5 H, MCHC 32.3, RDW Std Deviation 56.0 H, RDW Coeff of Eric 14.8 H, Plt Count 89 L, MPV 10.8, Immature Gran % (Auto) 1.200 H, Neut % (Auto) 67.2, Lymph % (Auto) 22.3, [place] % (Auto) 8.5, Eos % (Auto) 0.0, Baso % (Auto) 0.8, Absolute Neuts (auto) 1.7 L, Absolute Lymphs (auto) 0.55 L, Nucleated RBC % 0, Diff Path Review October03/22/21 05:45: Sodium 137, Potassium 3.8, Chloride 101, Carbon Dioxide 31.0, A nion Gap 5, BUN 9, Creatinine 0.60 L, Estim Creat Clear Calc 59.85, Est GFR ( MDRD) Af Amer 168, Est GFR (MDRD) Non-Af 139, BUN/Creatinine Ratio 15.0, Glucose 125 H, Calcium 8.3 L, Total Bilirubin 1.10 H, AST 66 H, ALT 23, Alkaline Phosphatase 106, Total Protein 6.6, Albumin 2.0 L, Globulin 4.6 H, Albumin/Globulin Ratio 0.4 L Micro: Microbiology 03/21/21 22:28 Urine, Clean Catch Legionella Antigen - Final 03/21/21 22:28 Urine, Clean Catch Streptococcus pneumoniae Antigen (M - Final 03/21/21 15:40 Nasal Secretion SARS-CoV-2 Antigen (Rapid) - Final Radiography Diagnostic Testing: Radiology Impression Chest CTA 03/21/21 21:39 IMPRESSION: Negative CTA Chest. Cardiomegaly with evidence of increased right heart pressures. Pulmonary emphysema with interval development of groundglass air space disease in the lingula and left lower lobe. Findings suspicious for pneumonia including atypical or viral pneumonia. Stable findings of pulmonary hypertension. Individualized dose optimization techniques were used for this CT. at 2302 Reported and signed by: Camden Elam MD Electronically Signed: Camden Elam MD at 23:08 EDT Tel , Service support , Physical Exam Const alert, oriented x3 and no apparent distress General Appearance: cooperative HEENT normocephalic and moist oral mucous membranes Eyes PERRL, EOMs intact bilaterally and conjunctivae normal Neck supple and no JVD Resp normal respiratory effort, no retractions, no use of accessory muscles and clear to auscultation bilaterally Auscultation: Negative for crackles, rales, rhonchi or wheezes Cardio regular rate, regular rhythm, S1 normal heart sound, S2 normal heart sound and no murmurs GI soft to palpation, non-tender and non-distended; Negative for hepatosplenomegaly Extremity no clubbing, cyanosis or edema Skin no rashes or lesions noted Neuro no focal motor deficits and no sensory deficits noted Psych affect normal Appearance: appropriate Assessment & Plan Assessment/Plan (1) COVID-19: (2) Hypoxia: PLAN: 1. Acute hypoxic respiratory failure secondary to COVID-19 pneumonia -He is vaccinated and symptoms this started on basic on the day of admission his son found him staring off into space -Continue with remdesivir and Decadron -Obtain an ambulatory pulse ox in the morning, if stable could consider discharge if that is what the patient would wish, he is asking to go home -Appreciate ID assistance 2. Chronic diastolic CHF/HTN/HLD/paroxysmal A. fib -Does not appear to be compliant with medications, does not take anything at home -Rate is controlled on no medications and is not on any anticoagulation 3. Chronic alcohol abuse -He did complete medical stabilization during his recent admission -We will monitor for signs and symptoms of withdrawal and if necessary may need to reinitiate DVT: Jarrett Charges/Coding Visit Charges Inpatient E&M: 83429 Subs Hosp L2
[2021-03-22] MEDS: 0.9% Saline Lock 10 ML Syringe IV (20:40)
[2021-03-22] MEDS: guaiFENesin/D-Methorphan TAB.SR.12H 1 TABLET PO (20:40)
--- NOTE | 2021-03-22 23:17 | PCS.PANDOC ---
PANDEMIC DOCUMENTATION INITIATED: Date: 03/22/21 Time:0183
[2021-03-23] VITALS (12 sets, daily range): BP systolic 129–152; BP diastolic 89–104; PULSE 65–76; RESP 18–20; TEMP 36.1–36.6; O2SAT 86–96
[2021-03-23 07:19] LABS: Absolute Neutrophil Count 5.5 X10^3/uL (2.0-7.7); Basophil# 0.01 X10^3/uL; Basophil% 0.1 % (0-1); Hematocrit 54.3 % (40-54); Hemoglobin 17.4 g/dL (13.0-16.5); Lymphocyte % 14.7 % (19-41); Mean Corpuscular Volume 99.8 fL (80-94); Mean Platelet Vol. 11.2 fl (6.2-12.0); Monocyte# 0.81 X10^3/uL; Monocyte% 10.8 % (0-10); NRBC Flagged by Analyzer 0 % (0-5); Neutrophil # 5.52 X10^3/uL (2.7-7.7); Neutrophil % 73.6 % (47-70); Platelet Count 123 K/mm3 (150-450); RBC Distribution Width CV 14.4 % (11.6-14.6); RBC Distribution Width SD 53.2 fl (35.1-43.9); Red Blood Count 5.44 M/mm3 (4.6-6.2); White Blood Count 7.5 K/mm3 (4.4-11.0)
[2021-03-23 07:47] LABS: Anion Gap 7 (5-15); BUN 14 mg/dL (7-18); BUN/Creat Ratio 26.9 RATIO (10-20); Calcium,Total 8.4 mg/dL (8.5-10.1); Chloride 100 mmol/L (98-107); Creatinine, Serum 0.52 mg/dL (0.70-1.30); EST Glomerular Filtration Rate 164 mL/min (>60); Est Glom Filt Rate - Afr Amer 198 mL/min (>60); Estimated Creatinine Clearance 59.85 ml/min; Glucose 99 mg/dL (74-106); Potassium 3.8 mmol/L (3.5-5.1); Sodium Level 136 mmol/L (136-145)
[2021-03-23] MEDS: Heparin Injection (Vial) 5,000 UNIT/ML VIAL 5000 UNIT SC (09:17)
[2021-03-23] MEDS: Thiamine Hydrochloride 100 MG Tablet PO ×2 (09:18→18:23)
[2021-03-23] MEDS: dexAMETHasone 4 MG/ML Vial 6 MG IV (09:18)
[2021-03-23] MEDS: guaiFENesin/D-Methorphan TAB.SR.12H 1 TABLET PO ×2 (09:18→21:01)
[2021-03-23] MEDS: 0.9% Saline Lock 10 ML Syringe IV ×3 (09:21→21:01)
--- NOTE | 2021-03-23 12:41 | CASEMGMT ---
IVONNE ESPOSITO Readmission Note Previous Admission: 03/16/21-03/19/21 Diagnosis: CHF exac, hypoxia DC Disposition: Home- no therapy recommended Current Admission Diagnosis: acute alcohol/toxic encephalopathy Pt presented to ER from home with SOB. Pt son found him sitting in urine. Pt tested positive for COVID. Therapy does not recommend therapy. IVONNE ESPOSITO in to pt room. Pt states that does want to go home and would like to go today. Pt states he has an appt set up with his PCP but the appt date has not occurred yet. Pt reports that his son has picked up his rx from last stay but he has not taken any of them yet. Discussed the importance of taking medications as ordered. Pt lives alone and states he has family, his son who can provide him with groceries and supplies. Pt on O2, discussed options for O2 upon dc. [facility] to [facility]. Pt states he wants to leave as soon as possible. Pt denied any need for any homecare services. DC PLAN: Home
[2021-03-23 13:12] LABS: Pathologist Review Reviewed
--- NOTE | 2021-03-23 13:43 | DCINST_ITS ---
Discharge Instructions Diet Discharge Diet: Low fat / Low cholesterol Activity Discharge Activity: Return to Normal Activity Dressing / Incision Call your doctor if you observe: Fever of 101 or Higher, Shortness of breath, Dizziness, Fainting spells, Swelling in the ankles, Chest pain and Increased palpitations (irregular heartbeat) Follow Up Care Test Results: Test results from this visit will be discussed in further detail at your follow-up appointment, if applicable. Discharge Plan Admission Admit Date/Time: 03/21/21 17:57 Attending Provider: Joe Nassar Primary Care Provider: Paulo Padilla Consulting Providers: Anil Hernandez Instructions Additional Instructions / Restrictions: Take Lasix once daily, and start your steroids tomorrow morning. Recommend follow-up with your PCP within the next week. There is a chance for Covid sympt oms could get worse and if that were to happen with increasing shortness of breath or weakness, would recommend coming back to the hospital for further care and monitoring. Discharge Orders/Prescriptions Prescriptions: New dexamethasone 2 mg tablet 6 mg PO DAILY 7 Days Qty: 21 RF: 0 Continued thiamine HCl (vitamin B1) [Vitamin B-1] 100 mg Tablet 100 mg PO BIDCM 3 Days Qty: 6 RF: 0 Changed furosemide 40 mg Tablet 40 mg PO DAILY 30 Days Qty: 60 RF: 0 Referrals / Follow Up: Paulo Padilla MD [Primary Care Provider] - Within 1 Week Disposition Disposition (needs filled in before D/C Order can be placed): Home, Self Care
--- NOTE | 2021-03-23 13:46 | CASEMGMT ---
Pt qualifies for home O2. Faxed referral to [facility] [place] [facility]. TC to [place] at [facility] to make aware of referral.
--- NOTE | 2021-03-23 13:57 | DS.PCM_ITS ---
Providers Date of Admission: 03/21/21 Primary Care Physician: Dr. Paulo Padilla MD Consultations 03/21/21 19:44 Consult: Infectious Disease Routine Consulting Provider: Anil Hernandez Reason for Consult: covid 19, exact symtoms may be started 03/16 when admitted for CHF exacer. EMERGENT Consult: No MD Notified: Yes Date Notified: 03/22/21 Time Notified: 07:39 Method of Notification: Text Reason For Visit: ACUTE ALCOHOL/TOXIC ENCEPHALOPATHY Diagnosis Discharge Diagnosis (1) COVID-19: Status: Acute Code(s): U07.1 - COVID-19 (2) Hypoxia: Status: Resolved Code(s): R09.02 - Hypoxemia Medications at Discharge Home Medications thiamine HCl (vitamin B1) [Vitamin B-1] 100 mg PO BIDCM 3 Days #6 tab 03/19/21 dexamethasone 6 mg PO DAILY 7 Days #21 tab 03/23/21 furosemide 40 mg PO DAILY 30 Days #60 tab 03/23/21 Hospital Course Operations None Procedures None Summary of Care Provided Minutes Spent on Discharge: 35 Hospital Course: Per HPI: ANA M GOVEA, is a 76 M who presents to the emergency r oom due to shortness of breath and weakness. Patient was discharged 03/19/2021 following treatment for heart failure. He was also on alcohol withdrawal protocol during admission. Patient denies shortness of breath, cough, URI symptoms. Patient is not forthcoming regarding information. He does report generalized weakness. Son at bedside states that he went to patient's house to check on him today and he was sitting on the couch in his own urine and staring off. He reports patient was very weak and appeared confused. Son reports patient will not admit to any symptoms. Son does report neighbors came to visit over the past 1 to 2 days which were found to be Covid positive. Patient has been vaccinated for Covid. Again, he denies Covid symptoms. He has a past medical history of CHF, chronic alcohol abuse, chronic COPD, paroxysmal atrial fibrillation, hypertension, hyperlipidemia, former tobacco use. Hospital Course: 1. Acute hypoxic respiratory failure secondary to COVID-19 pneumonia- 76-year-old male who was recently admitted for diastolic CHF presents to the hospital as his son found him staring off into space. He was brought back to the ER and found to test positive for Covid. He was not having any symptoms on his previous hospitalization or on discharge. He was started on remdesivir and Decadron is tolerated these both very well. He was initially started on 2 L nasal cannula and has maintained his oxygen saturations on 2 L nasal cannula. He also ambulated and required 2 L of nasal cannula with ambulation as well. I discussed with him that he will need to maintain his 2 L nasal cannula until he follows up with his PCP. He will receive his last dose of remdesivir today prior to discharge and will continue 7 more days of Decadron. I did discuss with him that he could potentially get worsening to come back to the hospital and he expressed understanding of that but would still like to go home today. I did discuss with him the risk and benefits of discharge and he expressed understanding of those risks and a desire to go home. 2. Chronic diastolic CHF, hypertension, hyperlipidemia, paroxysmal A. fib are all chronic medical conditions which complicate his care. His home medications were continued were appropriate he had not picked up his Lasix on his last admission therefore I did change his prescription to being a daily dose instead of twice daily dosing. I also do recommend that he follow-up as an outpatient for for his elevated hemoglobin which does appear to be a chronic condition may be related to his chronic alcohol abuse. Physical Exam Const alert, oriented x3 and no apparent distress General Appearance: cooperative HEENT normocephalic and moist oral mucous membranes Eyes PERRL, EOMs intact bilaterally and conjunctivae normal Neck supple and no JVD Resp normal respiratory effort, no retractions, no use of accessory muscles and clear to auscultation bilaterally Auscultation: Negative for crackles, rales, rhonchi or wheezes Cardio regular rate, regular rhythm, S1 normal heart sound, S2 normal heart sound and no murmurs GI soft to palpation, non-tender and non-distended; Negative for hepatosplenomegaly Extremity no clubbing, cyanosis or edema Skin no rashes or lesions noted Neuro no focal motor deficits and no sensory deficits noted Psych affect normal Appearance: appropriate Weight / BMI Weight Weight: 162 lb 0.636 oz Body Mass Index (BMI) 24.6 ABG / Lab / Microbiology Data Result Diagrams: 03/23/21 06:40 03/23/21 06:40 Laboratory: Laboratory Results - last 24 hr 03/21/21 14:55: Diff Path Review Reviewed 03/22/21 05:45: Diff Path Review Reviewed 03/23/21 06:40: WBC 7.5, RBC 5.44, Hgb 17.4 H, Hct 54.3 H, MCV 99.8 H, MCH 32.0, MCHC 32.0, RDW Std Deviation 53.2 H, RDW Coeff of Eric 14.4, Plt Count 123 L, MPV 11.2, Immature Gran % (Auto) 0.800, Neut % (Auto) 73.6 H, Lymph % (Auto) 14.7 L, [place] % (Auto) 10.8 H, Eos % (Auto) 0.0, Baso % (Auto) 0.1, Absolute Neuts (auto) 5.5, Absolute Lymphs (auto) 1.10, Nucleated RBC % 0 03/23/21 06:40: Sodium 136, Potassium 3.8, Chloride 100, Carbon Dioxide 29.0, Anion Gap 7, BUN 14, Creatinine 0.52 L, Estim Creat Clear Calc 59.85, Est GFR (MDRD) Af Amer 198, Est GFR (MDRD) Non-Af 164, BUN/Creatinine Ratio 26.9 H, Glucose 99, Calcium 8.4 L Microbiology: Microbiology 03/21/21 22:28 Urine, Clean Catch Legionella Antigen - Final 03/21/21 22:28 Urine, Clean Catch Streptococcus pneumoniae Antigen (M - Final 03/21/21 15:40 Nasal Secretion SARS-CoV-2 Antigen (Rapid) - Final D/C Instructions Discharge Diet: Low fat / Low cholesterol Call your doctor if you observe: Fever of 101 or Higher, Shortness of breath, Dizziness, Fainting spells, Swelling in the ankles, Chest pain and Increased palpitations (irregular heartbeat) Meaningful Use Info Meaningful Use Diagnoses (Choose all that apply): None applicable Discharge Plan Admission Admit Date/Time: 03/21/21 17:57 Attending Provider: Joe Nassar Primary Care Provider: Paulo Padilla Consulting Providers: Anil Hernandez Instructions Additional Instructions / Restrictions: Take Lasix once daily, and start your steroids tomorrow morning. Recommend follow-up with your PCP within the next week. There is a chance for Covid symptoms could get worse and if that were to happen with increasing shortness of breath or weakness, would recommend coming back to the hospital for further care and monitoring. Discharge Orders/Prescriptions Prescriptions: New dexamethasone 2 mg tablet 6 mg PO DAILY 7 Days Qty: 21 RF: 0 Continued thiamine HCl (vitamin B1) [Vitamin B-1] 100 mg Tablet 100 mg PO BIDCM 3 Days Qty: 6 RF: 0 Changed furosemide 40 mg Tablet 40 mg PO DAILY 30 Days Qty: 60 RF: 0 Referrals / Follow Up: Paulo Padilla MD [Primary Care Provider] - Within 1 Week Disposition Disposition (needs filled in before D/C Order can be placed): Home, Self Care Charges/Coding Visit Charges Inpatient E&M: 83177 Disch Hosp
--- NOTE | 2021-03-23 14:16 | CHAPLAIN ---
Type of Pastoral Visit ___ Initial Visit ___ Follow-up Visit ___ On-call Visit ___ General Patient Visit ___ Spiritual Assessment ___ Family Conference ___ Bereavement ___ Rapid Response ___ Code Blue _x__ Other (describe below) Pastoral Care Referral From _x__ Patient ___ Family ___ Nurse ___ Physician ___ Photo Intern ___ Packaging Coordinator _x__ Other (describe below) Sacrament/Intervention _x__ Active listening ___ Anointing ___ [place] _x__ Bereavement ___ Communion ___ [place] exploration ___ ___ Life review _x__ Prayer ___ Reconciliation ___ Sacrament of Sick _x__ Supportive presence ___ Wedding ___ Other (describe below) Pastoral Comments phone call into patient room and he answers stating that he is going to be discharged; pt denies any needs of self at this time but when asked about prayer the patient requests prayer for his son who committed suicide last week; further discussion and time of listening to patient at this point; offered sympathetic care and prayer support
--- NOTE | 2021-03-24 16:43 | CM.UR ---
IVONNE ESPOSITO Discharge Follow Up Phone Call: LACE: 12 Strata:3 Call Date: 03/24/21 Discharge Date: 03/23/21 Time of Call:1643 Duration:<1 min Admitting Dx:acute alcohol toxic encephalopathy IVONNE ESPOSITO attempted to complete follow up phone call after recent hospitalization. No answer and no vm left at this time.
== END 2021-03-23 22:35 | disposition home or self-care (01) | DRG 177 ==
LOC: ED 17:24 → MS3 22:49
PROVIDERS: Admitting Provider Internal Medicine; Emergency Provider Emergency Medicine; PCP Family Medicine; Visit Provider Family Medicine
DX: U07.1 COVID-19 (principal); J12.82 Pneumonia due to coronavirus disease 2019; J96.01 Acute respiratory failure with hypoxia; G92 Toxic encephalopathy; I50.32 Chronic diastolic (congestive) heart failure; D69.6 Thrombocytopenia, unspecified; R62.7 Adult failure to thrive; I11.0 Hypertensive heart disease with heart failure; I48.0 Paroxysmal atrial fibrillation; J43.9 Emphysema, unspecified; E78.5 Hyperlipidemia, unspecified; K21.9 Gastro-esophageal reflux disease without esophagitis; F32.9 Major depressive disorder, single episode, unspecified; F41.9 Anxiety disorder, unspecified; F12.90 Cannabis use, unspecified, uncomplicated; F10.20 Alcohol dependence, uncomplicated; Y90.0 Blood alcohol level of less than 20 mg/100 ml; K70.30 Alcoholic cirrhosis of liver without ascites; Z66 Do not resuscitate; Z91.19 Patient's noncompliance with other medical treatment and regimen; Z79.899 Other long term (current) drug therapy; Z87.891 Personal history of nicotine dependence
CPT/HCPCS: 36415; 71045; 71275; 80048; 80053; 80076; 80307; 82077; 82550; 82977; 83605; 83615; 83735; 83880; 84100; 84145; 84484; 85025; 85379; 85384; 85610; 86140; 87040; 87426; 87449; 87635; 92610; 93005; 94762; 97161; 97166; 97802; 99251; 99285; J7030; J7050; Q9967; U0005; A4216; G0463; J0295; U0003

== ENCOUNTER 2021-03-27 17:46 | Emergency (ER) | payer OTHER, MEDICARE, SELFPAY ==
[2021-03-27 17:48] VITALS: BP 150/94; PULSE 63; RESP 20; TEMP 36.4; O2SAT 92; BMI 29.3
[2021-03-27 17:54] VITALS: O2SAT 95
--- NOTE | 2021-03-27 18:10 | EKG12_ITS ---
Test Reason : GEN ILLNESS Blood Pressure : / mmHG Vent. Rate : 061 BPM Atrial Rate : 045 BPM P-R Int : 000 ms QRS Dur : 188 ms QT Int : 546 ms P-R-T Axes : 000 068 018 degrees QTc Int : 549 ms Atrial fibrillation Right bundle branch block Abnormal ECG Confirmed by JOSE ALBERTO CARLSON, TIM ([id number]), editorial assistant VICKI BROTHERS ([id number]) on 03/29/2021 1:22:08 PM Referred By: AMINA Confirmed By:TIM ABRAMS MD
[2021-03-27 18:56] LABS: Bacteria 0 SEEN /hpf (None Seen)
[2021-03-27 18:58] LABS: Absolute Neutrophil Count 9.2 X10^3/uL (2.0-7.7); Basophil# 0.03 X10^3/uL; Basophil% 0.3 % (0-1); Eosinophil# 0.03 X10^3/uL; Eosinophils% 0.3 % (0-5); Hematocrit 54.7 % (40-54); Lymphocyte % 5.7 % (19-41); Mean Corp Hgb Conc 33.3 g/dL (32-36); Mean Corpuscular Hgb 32.5 pg (27.0-32.0); Mean Corpuscular Volume 97.7 fL (80-94); Monocyte# 0.62 X10^3/uL; Monocyte% 5.8 % (0-10); NRBC Flagged by Analyzer 0 % (0-5); Neutrophil # 9.18 X10^3/uL (2.7-7.7); Neutrophil % 86.5 % (47-70); POSITIVE DIFFERENTIAL YES; Platelet Count 188 K/mm3 (150-450); RBC Distribution Width CV 14.8 % (11.6-14.6); RBC Distribution Width SD 53.3 fl (35.1-43.9); White Blood Count 10.6 K/mm3 (4.4-11.0)
--- NOTE | 2021-03-27 18:58 | EX.ED.DYSGE1 ---
HPI History of Present Illness Chief Complaint: General Illness Informant: patient and family Narrative Narrative: Patient came in with mild confusion. Patient denied any complaints to me. But he also did not answer many questions until his family got here. When family arrived, they states that he is just been staring off into space and not acting quite right. At first they said it was today. Then they said it was yesterday. Then he is the son said is been at least 2 or 3 days. When I look at his chart, it looks like he had this when he came in the hospital last time. He is on oxygen now for Covid. 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 He is still drinking but not as much. No reported seizures. He does live alone but his son's been staying with him throughout this. It does not sound like there were discussions about going to a senior living facility after admission. When I read his recent notes and talk with the son now it sounds like this is similar episodes still going on. Reportedly the patient is getting his dexamethasone and Lasix in. [facility] Medical History Afib Alcohol abuse Anxiety and depression Cellulitis of left lower extremity Cirrhosis COPD (chronic obstructive pulmonary disease) Former tobacco use HTN (hypertension) Irregular heart beat Home Medications thiamine HCl (vitamin B1) [Vitamin B-1] 100 mg PO BIDCM 3 Days #6 tab 03/19/21 [Rx Last Taken Unknown] dexamethasone 6 mg PO DAILY 7 Days #21 tab 03/23/21 [Rx Last Taken Unknown] furosemide 40 mg PO DAILY 30 Days #60 tab 03/23/21 [Rx Last Taken Unknown] Allergy/AdvReac Type Severity Reaction Status Date / Time No Known Allergies Allergy Verified 03/27/21 17:54 Family History Mother Cancer Reported history of brain CA. Father Myocardial infarction Heart disease Surgical History History of surgery on arm Social History household members: none Smoking Status: Former smoker how long ago did patient quit smoking: Quit 20 years prior, prior 2 pack/day cigarette tobacco since 19. alcohol intake: current alcohol intake frequency: 3 or more drinks per day Alcohol type: beer details: Drinks 6-12 beers daily. substance use type: marijuana and other details: Uses cannabis cigarettes, rolled near daily. ROS ROS ED Constitutional Constitutional ED: Denies fever(s) Eyes Eyes: Denies change in vision ENT ENT ED: Denies rhinorrhea Cardiovascular Cardiovascular: Denies chest pain or palpitations Respiratory/Chest Respiratory/Chest: Reports cough and dyspnea; Denies sputum Gastrointestinal Gastrointestinal: Denies diarrhea or vomiting Genitourinary Genitourinary ED: Denies dysuria or hematuria Musculoskeletal Musculoskeletal: Denies arthralgias, back pain, myalgias or neck pain Integumentary Denies rash Neurologic Neurologic: Reports other Details: See history of present illness. No focal complaint. There is a report of generalized decreased responsiveness and staring off into space. However, patient will sometimes be standing upright during these episodes. They state he is better now than he was at home. ; Denies headache(s) Psychiatric Psychiatric: Denies anxiety or depression Endocrine Endocrinology: Denies polydipsia or polyuria Allergic/Immunologic Allergic/Immunologic ED: Denies urticaria EXAM Physical Exam Const Vital Signs: 03/27/21 17:48 03/27/21 17:54 03/27/21 18:50 Temperature 97.5 F L Temperature Source Oral Pulse Rate 63 Respiratory Rate 20 H Respiratory Effort Normal Non-Labored Respiratory Pattern Normal Blood Pressure 150/94 H Blood Pressure Mean 112 Pulse Ox 92 95 Oxygen Delivery Method Room Air Nasal Cannula Oxygen Flow Rate (L/min) 2 03/27/21 19:59 03/27/21 20:43 Temperature Temperature Source Pulse Rate 44 L 60 Respiratory Rate 16 20 H Respiratory Effort Respiratory Pattern Blood Pressure 150/90 H 132/83 H Blood Pressure Mean 110 99 Pulse Ox 97 94 Oxygen Delivery Method Room Air Nasal Cannula Oxygen Flow Rate (L/min) 2 Positive unkempt Constitutional Narrative: Patient looks chronically ill but does not look toxic. He does take quite a long time to answer sometimes. When his family comes in he perks up and starts answering questions much quicker and much clearer. General Appearance ED: unkempt and NAD HEENT Reports moist mucous membranes Negative for trauma or tenderness Eyes General Eye ED: Negative for pale conjunctiva Neck no JVD Resp normal respiratory effort Resp Narrative: Mild coarse breath sounds bilaterally. Effort and Inspection: Negative for pain with movement Auscultation: rhonchi; Negative for rales or wheezes Cardio regular rate and no murmurs Rhythm: abnormal rhythm GI normal to inspection, nondistended, normoactive bowel sounds and non-tender Palpation: soft Back/Spine no CVA tenderness Extremity normal to inspection General Extremety ED: Negative for tenderness Neuro oriented x3 Sensorium / Orientation: alert Psych Psych Narrative: Patient is awake. He is not sleepy or lethargic. He just oftentimes does not answer my questions. This gets better when his family comes in the room. He actually knows that he is in [facility] the year the president. Appearance: unkempt Skin no rashes or lesions noted MDM MDM MDM Narrative Medical decision making narrative: Patient has chronic elevated hemoglobins. INR is not elevated. Electrolytes show some minimally decreased potassium. Minimal elevation of LFTs. Alcohol is negative. Urine shows no sign of infection. Chest x-ray did hint of some worsening infiltrates but clinically he is not worsening with Covid. His saturations are good. He does not feel short of breath when he is on his oxygen and he has oxygen at home. CAT scan of his head is negative. I had a discussion with him and his son. I explained that this was seen when he was in the hospital recently. His son admits that that did happen but he was concerned that it was occurring again. He states sometimes his father is good and sometimes he seems little more confused. He has noticed this worsening for some months but it seems worse now with the Covid. His father does not want to go to a [facility]p at this time. His son really does not want him to go there. His son is comfortable taking his dad home and will watch him there. They will have discussions with the father/patient and his primary physician about long-term care. I explained this may be due to many years of drinking and some chronic encephalopathy. We discussed reasons to return. We encouraged him to continue abstaining from alcohol as much as possible. Evidently he just occasionally has a beer now. 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 Lab Data Attestation: I reviewed the patient's lab results. Labs: Laboratory Results - last 24 hr 03/27/21 03/27/21 03/27/21 18:44 18:44 18:44 WBC 10.6 RBC 5.60 Hgb 18.2 H* Hct 54.7 H MCV 97.7 H MCH 32.5 H MCHC 33.3 RDW Std Deviation 53.3 H RDW Coeff of Eric 14.8 H Plt Count 188 MPV 11.0 Immature Gran % (Auto) 1.400 H Neut % (Auto) 86.5 H Lymph % (Auto) 5.7 L [place] % (Auto) 5.8 Eos % (Auto) 0.3 Baso % (Auto) 0.3 Absolute Neuts (auto) 9.2 H Absolute Lymphs (auto) 0.60 L Nucleated RBC % 0 Differential Comment SCANNED Diff Path Review October foll PT 14.5 INR 1.2 Sodium 137 Potassium 3.4 L Chloride 95 L Carbon Dioxide 34.0 H Anion Gap 8 BUN 12 Creatinine 0.66 L Estim Creat Clear Calc 53.81 Est GFR (MDRD) Af Amer 151 Est GFR (MDRD) Non-Af 125 BUN/Creatinine Ratio 18.3 Glucose 102 Calcium 9.2 Total Bilirubin 1.30 H AST 37 ALT 27 Alkaline Phosphatase 183 H Total Protein 7.3 Albumin 2.9 L Globulin 4.4 H Albumin/Globulin Ratio 0.7 L Urine Color Urine Clarity Urine pH Ur Specific [place] Urine Protein Urine Glucose (UA) Urine Ketones Urine Occult Blood Urine Nitrite Urine Bilirubin Urine Urobilinogen Ur Leukocyte Esterase Urine RBC Urine WBC Ur Squamous Epith Cells Urine Bacteria Urine Mucus Ethyl Alcohol 03/27/21 03/27/21 18:44 18:44 WBC RBC Hgb Hct MCV MCH MCHC RDW Std Deviation RDW Coeff of Eric Plt Count MPV Immature Gran % (Auto) Neut % (Auto) Lymph % (Auto) [place] % (Auto) Eos % (Auto) Baso % (Auto) Absolute Neuts (auto) Absolute Lymphs (auto) Nucleated RBC % Differential Comment Diff Path Review PT INR Sodium Potassium Chloride Carbon Dioxide Anion Gap BUN Creatinine Estim Creat Clear Calc Est GFR (MDRD) Af Amer Est GFR (MDRD) Non-Af BUN/Creatinine Ratio Glucose Calcium Total Bilirubin AST ALT Alkaline Phosphatase Total Protein Albumin Globulin Albumin/Globulin Ratio Urine Color Pat Urine Clarity Sl. Cloudy Urine pH 6.5 Ur Specific [place] 1.015 Urine Protein 30 H Urine Glucose (UA) Normal Urine Ketones 5 H Urine Occult Blood 10 H Urine Nitrite Positive H Urine Bilirubin 1 H Urine Urobilinogen 8 H Ur Leukocyte Esterase 25 H Urine RBC 0-5 SEEN Urine WBC 0-5 SEEN Ur Squamous Epith Cells 0-5 SEEN Urine Bacteria 0 SEEN Urine Mucus RARE Ethyl Alcohol < 3.0 Radiography Diagnostic Testing: Radiology Impression Brain CT 03/27/21 19:10 IMPRESSION: 1. Normal CT brain. Electronically Signed: Faiza Pineda MD at 19:33 EDT Tel , Service support , Chest X-Ray 03/27/21 19:14 IMPRESSION: Bilateral interstitial densities and possible mild basilar infiltrates with slight interval worsening. Electronically Signed: Alexandru Obrien DO at 20:40 EDT Tel [phone], Service support , EKG Initial EKG: Comments: EKG done for part of medical work-up read by me shows atrial fibrillation with right bundle branch block. Nonspecific ST and T wave changes. Wide QRS and long QT. This is similar to 26 7 temporally. 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
[2021-03-27 19:00] LABS: Color, Urine Amber (Yellow); Glucose, Dipstick Normal (Normal); Ketone-Dipstick 5 mg/dl (Negative); Occult Blood-Urine 10 /ul (Negative); Protein-Dipstick 30 mg/dl (Negative); Urine Clarity Sl. Cloudy (Clear)
[2021-03-27 19:03] LABS: Differential Indicated SCAN CRITERIA MET
[2021-03-27 19:04] LABS: Hemoglobin 18.2 g/dL (13.0-16.5)
[2021-03-27 19:09] LABS: International Normalized Ratio 1.2; Prothrombin Time (Protime)PT. 14.5 SECONDS (11.7-14.9)
--- NOTE | 2021-03-27 19:10 | CT_ITS ---
STUDY: CT BRAIN WITHOUT CONTRAST REASON FOR EXAM: Male, 76 years old. Confusion RADIATION DOSAGE (If Supplied By Facility): CTDIvol = ( 44.99 ) mGy, DLP = ( 846.73 ) mGycm TECHNIQUE: Transaxial CT imaging of the brain was performed without administration of intravenous contrast material. Individualized dose optimization techniques were used for this CT. COMPARISON: No relevant priors. FINDINGS: Brain parenchyma is without focal lesions, mass effect, acute intracranial hemorrhage, extra parenchymal fluid collections, hydrocephalus or herniation. The skull is intact. CT/Brain/Head without Contrast IMPRESSION: 1. Normal CT brain. Electronically Signed: Faiza Pineda MD at 19:33 EDT Tel , Service support ,
[2021-03-27 19:11] LABS: Mucous, Urine RARE /hpf (<or=2+); Red Blood Cells-Urine 0-5 SEEN /hpf (0-5); Squamous Epithelial Cells - UA 0-5 SEEN /hpf (0-5); White Blood Cells 0-5 SEEN /hpf (0-5)
--- NOTE | 2021-03-27 19:14 | RAD_ITS ---
STUDY: X-RAY CHEST REASON FOR EXAM: Male, 76 years old. Cough covid TECHNIQUE: Frontal view COMPARISON: 03/21/2021. FINDINGS: The lungs are expanded. Bilateral interstitial densities and possible mild basilar infiltrates with slight interval worsening. Borderline size heart. Normal mediastinum and dinah. Normal visualized pulmonary arteries. Calcified aortic arch and descending thoracic aorta. Degenerative changes of the thoracic spine. Normal visualized ribs, clavicles, and shoulders. There is no demonstrated abnormality of the visualized soft tissue structures of the upper abdomen. RAD/Chest 1 View (Portable) IMPRESSION: Bilateral interstitial densities and possible mild basilar infiltrates with slight interval worsening. Electronically Signed: Alexandru Obrien DO at 20:40 EDT Tel [phone], Service support ,
[2021-03-27 19:16] LABS: Leukocyte Esterase-Dipstick 25 /ul (Negative); Nitrite-Dipstick Positive (Negative); Specific Gravity, Urine 1.015 (1.002-1.030); Urine Bilirubin Dipstick 1 mg/dL (Negative); Urine Urobilinogen 8 mg/dl (Normal); Urine pH 6.5 (5.0 - 8.0)
[2021-03-27 19:19] LABS: ALB/GLOB Ratio 0.7 RATIO (0.9-2.4); AST(SGOT) 37 U/L (15-37); Alanine Aminotransfer ALT/SGPT 27 U/L (16-61); Albumin, Serum 2.9 g/dL (3.2-5.0); Alkaline Phosphatase 183 U/L (45-117); Anion Gap 8 (5-15); BUN 12 mg/dL (7-18); BUN/Creat Ratio 18.3 RATIO (10-20); Calcium,Total 9.2 mg/dL (8.5-10.1); Chloride 95 mmol/L (98-107); Creatinine, Serum 0.66 mg/dL (0.70-1.30); EST Glomerular Filtration Rate 125 mL/min (>60); Est Glom Filt Rate - Afr Amer 151 mL/min (>60); Estimated Creatinine Clearance 53.81 ml/min; Globulin 4.4 g/dL (2.2-4.2); Glucose 102 mg/dL (74-106); Potassium 3.4 mmol/L (3.5-5.1); Protein, Total 7.3 g/dL (6.4-8.2); Sodium Level 137 mmol/L (136-145)
[2021-03-27 19:23] LABS: Differential Comment SCANNED
--- NOTE | 2021-03-27 19:23 | ED.RN ---
This nurse took critical lab result hemoglobin 18.2, reported to Chen Bryan
[2021-03-27 19:45] LABS: Alcohol, Blood (Medical)-Serum < 3.0 mg/dL
[2021-03-27 19:59] VITALS: BP 150/90; PULSE 44; RESP 16; O2SAT 97
[2021-03-27 20:43] VITALS: BP 132/83; PULSE 60; RESP 20; O2SAT 94
[2021-03-27 22:20] VITALS: BP 93/64; PULSE 79; RESP 20; O2SAT 92
[2021-03-29 14:55] LABS: Pathologist Review Reviewed
== END 2021-03-27 22:21 | disposition home or self-care (01) ==
PROVIDERS: Emergency Provider Emergency Medicine; PCP Family Medicine
DX: U07.1 COVID-19 (principal); Z87.891 Personal history of nicotine dependence
CPT/HCPCS: 70450; 71045; 80053; 81001; 82077; 85025; 85610; 93005; 96365; 96366; 96367; 99285; J7030; J7050; A4216; J3490

== ENCOUNTER 2022-09-01 12:13 | Emergency (ER) | payer OTHER, SELFPAY ==
[2022-09-01] VITALS (7 sets, daily range): BP systolic 115–149; BP diastolic 82–100; PULSE 69–84; RESP 17–95; TEMP 36.7; O2SAT 92–94; BMI 33.7
[2022-09-01] MEDS: Ipratropium/Albuterol Sulfate 3 ML AMPUL.NEB INHALATION (13:12)
[2022-09-01] MEDS: Aspirin 81 MG TAB.CHEW 324 MG PO (13:25)
[2022-09-01] MEDS: 0.9% Normal Saline 1,000 ML 1000 ML IV (13:27)
[2022-09-01 13:32] LABS: Absolute Lymphocyte Count 1.34 X10^3/uL (0.83-4.51); Absolute Neutrophil Count 9.9 X10^3/uL (2.0-7.7); Basophil# 0.08 X10^3/uL; Basophil% 0.6 % (0-1); Eosinophil# 0.23 X10^3/uL; Eosinophils% 1.8 % (0-5); Hemoglobin 15.3 g/dL (13.0-16.5); Lymphocyte # 1.34 X10^3/ul (0.83-4.51); Lymphocyte % 10.3 % (19-41); Mean Corp Hgb Conc 32.6 g/dL (32-36); Mean Corpuscular Hgb 31.8 pg (27.0-32.0); Mean Corpuscular Volume 97.7 fL (80-94); Mean Platelet Vol. 10.5 fl (6.2-12.0); Monocyte# 1.41 X10^3/uL; Monocyte% 10.8 % (0-10); NRBC Flagged by Analyzer 0 % (0-5); Neutrophil % 75.8 % (47-70); Platelet Count 340 K/mm3 (150-450); RBC Distribution Width CV 14.3 % (11.6-14.6); RBC Distribution Width SD 51.8 fl (35.1-43.9); Red Blood Count 4.81 M/mm3 (4.6-6.2); White Blood Count 13.1 K/mm3 (4.4-11.0)
--- NOTE | 2022-09-01 13:35 | RAD_ITS ---
STUDY: X-RAY CHEST REASON FOR EXAM: Male, 77 years old. Chest pain and shortness of breath. TECHNIQUE: Single AP portable view of the chest. COMPARISON: Comparison is made with prior study dated March 27, 2021. FINDINGS: EKG electrodes are seen. Impression congestion and a mild degree of CHF. There is blunting of the left costophrenic angle. There is moderate cardiac enlargement. Normal mediastinum and dinah. Normal visualized pulmonary arteries. There is atherosclerotic calcification of the aortic arch with tortuosity. There are diffuse degenerative changes of the visualized thoracic spine. There is degenerative osteoarthritis of the bilateral shoulders. There is no demonstrated abnormality of the visualized soft tissue structures of the upper abdomen. RAD/Chest 1 View (Portable) IMPRESSION: Cardiomegaly and a mild degree of CHF. Electronically Signed: Ryland Garcia MD at 13:46 EST ,
[2022-09-01 13:40] LABS: Anion Gap 6 (5-15); BUN 8 mg/dL (7-18); BUN/Creat Ratio 7.9 RATIO (10-20); Calcium,Total 9.2 mg/dL (8.5-10.1); Chloride 98 mmol/L (98-107); Creatinine, Serum 1.01 mg/dL (0.70-1.30); EST Glomerular Filtration Rate 76 mL/min (>60); Est Glom Filt Rate - Afr Amer 92 mL/min (>60); Estimated Creatinine Clearance 52.43 ml/min; Glucose 134 mg/dL (74-106); Potassium 3.4 mmol/L (3.5-5.1); Sodium Level 134 mmol/L (136-145); Thyroid Stim Hormone (TSH) 2.62 uIU/mL (0.358-3.74); Troponin-I HS (w/2H Reflex) 21 pg/mL (3.0-78.0)
[2022-09-01 13:58] LABS: BNP,B-Type NATRIURETIC PEPTIDE 480.8 pg/mL (0-100)
--- NOTE | 2022-09-01 14:09 | ED.VIS.CHEST ---
HPI History of Present Illness Chief Complaint: Chest Pain Narrative Narrative: Patient is a 77-year-old male with history of COPD, 2 L of O2 dependency at baseline, CHF and dementia presenting with increased shortness of breath and chest pain. Patient is complaining of left-sided chest pain to his son this morning. He currently has no complaints. Son also notes that he has been had increased shortness of breath and dyspnea on exertion lately. Does not have any new swelling of his legs. Son was concerned that there could be something more severe and patient is a poor historian because of his dementia so he wanted him brought in to be evaluated further. [facility] Medical History Afib Alcohol abuse Anxiety and depression Cellulitis of left lower extremity Cirrhosis COPD (chronic obstructive pulmonary disease) Former tobacco use HTN (hypertension) Irregular heart beat Home Medications apixaban 5 mg tablet (Eliquis) 5 mg PO BID 09/01/22 [History Last Taken Unknown] azithromycin 250 mg tablet (Zithromax Z-Osiel) See Rx Instructions PO .COMPLEX #6 tabs 09/01/22 [Rx Last Taken Unknown] furosemide 40 mg tablet 40 mg PO BID 09/01/22 [History Last Taken Unknown] potassium chloride 20 mEq tablet,extended release(part/cryst) 60 meq PO DAILY 09/01/22 [History Last Taken Unknown] propranolol 20 mg tablet 20 mg PO DAILY 09/01/22 [History Last Taken Unknown] thiamine HCl (vitamin B1) 100 mg tablet (Vitamin B-1) 100 mg PO DAILY 09/01/22 [History Last Taken Unknown] Allergy/AdvReac Type Severity Reaction Status Date / Time No Known Allergies Allergy Verified 09/01/22 12:15 Family History Mother Cancer Reported history of brain CA. Father Myocardial infarction Heart disease Surgical History History of surgery on arm Social History household members: none Smoking Status: Former smoker how long ago did patient quit smoking: Quit 20 years prior, prior 2 pack/day cigarette tobacco since 19. alcohol intake: current alcohol intake frequency: 3 or more drinks per day Alcohol type: beer details: Drinks 6-12 beers daily. substance use type: marijuana and other details: Uses cannabis cigarettes, rolled near daily. ROS ROS ED Constitutional Constitutional ED: Denies chills or fever(s) Cardiovascular Cardiovascular: Reports as per HPI and chest pain Respiratory/Chest Respiratory/Chest: Reports cough, dyspnea and dyspnea on exertion Gastrointestinal Gastrointestinal: Denies abdominal pain or vomiting Musculoskeletal Musculoskeletal: Denies arthralgias or myalgias Integumentary Denies rash Neurologic Neurologic: Denies headache(s) or weakness Hematologic/Lymphatic Hematologic/Lymphatic: Reports easy bleeding and easy bruising EXAM Physical Exam Const Vital Signs: 09/01/22 12:15 09/01/22 12:20 09/01/22 12:47 Temperature 98.0 F Temperature Source Temporal Pulse Rate 84 Respiratory Rate 28 H Respiratory Depth Normal Respiratory Pattern Tachypnea Tachypnea Blood Pressure 149/94 H Blood Pressure Mean 112 Pulse Ox 92 Oxygen Delivery Method Nasal Cannula Nasal Cannula Oxygen Flow Rate (L/min) 2 09/01/22 13:14 09/01/22 13:22 09/01/22 13:14 Temperature Temperature Source Pulse Rate 77 69 Respiratory Rate 24 H 95 H Respiratory Depth Respiratory Pattern Tachypnea Blood Pressure 134/84 H Blood Pressure Mean 100 Pulse Ox Oxygen Delivery Method Nasal Cannula Nasal Cannula Oxygen Flow Rate (L/min) 2 2 09/01/22 14:14 09/01/22 14:45 Temperature Temperature Source Pulse Rate 75 82 Respiratory Rate 24 H Respiratory Depth Respiratory Pattern Blood Pressure 115/82 H 137/100 H Blood Pressure Mean 93 112 Pulse Ox 93 Oxygen Delivery Method Nasal Cannula Oxygen Flow Rate (L/min) 2 Positive well nourished and well developed General Appearance ED: well developed and NAD HEENT Reports moist mucous membranes normocephalic and atraumatic Eyes PERRL and EOMs intact bilaterally Neck supple and no JVD Chest Wall inspection of chest normal and palpation of chest normal Chest: Negative for tenderness Resp normal respiratory effort and clear to auscultation bilaterally Auscultation: diminished lung sounds bilateral lower Cardio regular rate, regular rhythm and no murmurs Peripheral Pulses: pulses 2+ throughout GI normal to inspection, nondistended, normoactive bowel sounds and soft to palpation Extremity normal to inspection Neuro no sensory deficits noted Neuro Narrative: at baseline Sensorium / Orientation: awake, alert and oriented to person Motor Exam: strength 5/5 throughout; Negative for general weakness Psych mental status grossly normal Skin no rashes or lesions noted Heart Score History: Slightly/Non-Suspicious ECG: Nonspecific Repolarization Age: >/= 65 years Risk Factors: 1 or 2 Risk Factors Troponin: </= Normal Limit Score: 4 MDM MDM MDM Narrative Medical decision making narrative: Patient is evaluated for an episode of chest pain. Son also notes patient seemed more short of. Patient wears 2 L of oxygen at baseline however son was unspecified the patient often takes it off especially when he ambulates or at rest. Likely this is worsening his symptoms. Differential includes was not limited to ACS, pulmonary emboli, fluid overload and pneumonia. Given the patient's been compliant with his Eliquis have a low suspicion for PE and I do not think testing for this is indicated. EKG does not show acute ischemic changes and troponin is within normal limits x2 with no significant change. Patient is have a mild leukocytosis of 13.1 which is nonspecific. He does not have any significant electrolyte derangement and he does have a mildly elevated BNP of 480 however this is near his baseline but not as high as he has been in the past. 1 view chest x-ray interpreted by myself as well as radiology. Mild changes consistent with CHF however no significant pleural effusion. No infiltrate. Patient is initially given IV fluids for concern of possible pneumonia. He is also given a DuoNeb with some improvement of his respiratory rate. Patient does have an nebulizer machine which he uses intermittently at home. Patient is initially ambulated and does not wear his 2 L oxygen and desaturates significantly. We repeated ambulation with his home O2 and patient only desatted to 88 to 89%. Patient appears to be at his baseline. I do not think patient needs admission for further cardiac evaluation however I did consider this. I do not think patient requires admission at this time for CHF exacerbation. I will cover the patient with azithromycin for possible early pneumonia given his mild leukocytosis as well as double up on his Lasix for the next 5 days. Patient's son counseled on the importance of close outpatient follow-up as well as return precautions. Counseled that he might clinically worsen and might need to return to the emergency room. He verbalizes given understands this plan. Patient's son felt that he had sufficient supply of Lasix to double up for 5 days and did not require a new prescription at this time. History & Record Review Discussion w/independent historian: Family (Patient's son provides history as patient has dementia) Lab Data Attestation: I reviewed the patient's lab results. Labs: Laboratory Results - last 24 hr 09/01/22 09/01/22 09/01/22 12:21 12:21 12:21 WBC 13.1 H RBC 4.81 Hgb 15.3 Hct 47.0 MCV 97.7 H MCH 31.8 MCHC 32.6 RDW Std Deviation 51.8 H RDW Coeff of Eric 14.3 Plt Count 340 MPV 10.5 Immature Gran % (Auto) 0.700 Neut % (Auto) 75.8 H Lymph % (Auto) 10.3 L [place] % (Auto) 10.8 H Eos % (Auto) 1.8 Baso % (Auto) 0.6 Absolute Neuts (auto) 9.9 H Absolute Lymphs (auto) 1.34 Nucleated RBC % 0 Sodium 134 L Potassium 3.4 L Chloride 98 Carbon Dioxide 30.0 Anion Gap 6 BUN 8 Creatinine 1.01 Estim Creat Clear Calc 52.43 Est GFR (MDRD) Af Amer 92 Est GFR (MDRD) Non-Af 76 BUN/Creatinine Ratio 7.9 L Glucose 134 H Calcium 9.2 Troponin I High Sens 21 B-Natriuretic Peptide 480.8 H TSH 2.62 09/01/22 15:06 WBC RBC Hgb Hct MCV MCH MCHC RDW Std Deviation RDW Coeff of Eric Plt Count MPV Immature Gran % (Auto) Neut % (Auto) Lymph % (Auto) [place] % (Auto) Eos % (Auto) Baso % (Auto) Absolute Neuts (auto) Absolute Lymphs (auto) Nucleated RBC % Sodium Potassium Chloride Carbon Dioxide Anion Gap BUN Creatinine Estim Creat Clear Calc Est GFR (MDRD) Af Amer Est GFR (MDRD) Non-Af BUN/Creatinine Ratio Glucose Calcium Troponin I High Sens 20 B-Natriuretic Peptide TSH Radiography Diagnostic Testing: Clinical Impression(s) from Imaging Studies Chest X-Ray 09/01/22 13:35 IMPRESSION: Cardiomegaly and a mild degree of CHF. Electronically Signed: Ryland Garcia MD at 13:46 EST , Rhythm Strip Rhythm Strip: A-fib Rate: 70 Ectopy: None EKG Initial EKG: Attestation: I personally reviewed and interpreted this EKG as follows: Interpretation: Atrial Fibrillation and RBBB Comments: Atrial fibrillation at a rate of 70 bpm Normal axis Right bundle kay block Normal intervals Compared to prior EKG on 03/27/2021 patient continues to have T wave inversions in septal leads with no acute changes Prior EKG tracings: available for review Prior: Unchanged Discharge Plan Triage Chief Complaint: Chest Pain Other Complaint: Shortness of Breath ED Provider: Alpa Brown Dx/Rx/DC Orders Clinical Impression: Chest pain, CHF (congestive heart failure) Instructions: ED Heart Failure, Congestive (CHF), ED Chest Pain, Uncertain Cause Prescriptions: New azithromycin [Zithromax Z-Osiel] 250 mg tablet See Rx Instructions .ROUTE .COMPLEX Qty: 6 0RF Rx Instructions: For 250 mg dose pack: take 500 mg today (day 1), then 250 mg for 4 days (days 2-5) No Action potassium chloride 20 mEq tablet,ER particles/crystals 60 meq PO DAILY Label Comments: Take 3 tablets by mouth once daily. propranolol 20 mg tablet 20 mg PO DAILY Label Comments: Take 1 tablet by mouth twice daily. Eliquis 5 mg tablet 5 mg PO BID Label Comments: TAKE 1 TABLET BY MOUTH twice DAILY furosemide 40 mg tablet 40 mg PO BID thiamine HCl (vitamin B1) [Vitamin B-1] 100 mg tablet 100 mg PO DAILY Primary Care Provider: Paulo Padilla Referrals: Paulo Padilla MD [Primary Care Provider] - Activity Restrictions/Additional Instructions: Mumtaz has a mildly elevated white blood cell count of 13.1. Given his increased cough we will cover with antibiotics, azithromycin. In addition please double his Lasix for the next 5 days (2 tabs twice a day). If he seems to be getting worse or has new or concerning symptoms please return to the emergency room. Please follow-up closely with his primary care doctor. Disposition Disposition: Home, Self Care
[2022-09-01 15:15] LABS: Reflex Troponin-HS? (from REC) Y
[2022-09-01 15:48] LABS: Troponin-I HS 20 pg/mL (3.0-78.0)
== END 2022-09-01 16:42 | disposition home or self-care (01) ==
PROVIDERS: Emergency Provider Emergency Medicine; PCP Family Medicine; Visit Provider Emergency Medicine
DX: R07.9 Chest pain, unspecified (principal); F03.90 Unspecified dementia, unspecified severity, without behavioral disturbance, psychotic disturbance, mood disturbance, and anxiety; J44.9 Chronic obstructive pulmonary disease, unspecified; I11.0 Hypertensive heart disease with heart failure; I50.9 Heart failure, unspecified; Z99.81 Dependence on supplemental oxygen; Z79.899 Other long term (current) drug therapy; Z87.891 Personal history of nicotine dependence
CPT/HCPCS: 71045; 80048; 83880; 84443; 84484; 85025; 93005; 94640; 96360; 99285; J7030; A4216